=== PATIENT | male | born 1940 | race Caucasian/White ===

== ENCOUNTER 2017-03-17 03:25 | Emergency (ER) | payer MEDICARE, OTHER ==
--- NOTE | 2017-03-17 03:49 | EDM.PDOC ---
ED HPI GENERAL MEDICAL PROBLEM - General Chief Complaint: Abdominal Pain Stated Complaint: STOMACH PAIN Time Seen by Provider: 03/17/17 03:42 Source of Information: Reports: Patient History Limitations: Reports: No Limitations - History of Present Illness INITIAL COMMENTS - FREE TEXT/NARRATIVE: This is a 76-year-old male. 1:15 AM this morning he awoke to go to the bathroom. After he had urinated he got back into bed but shortly he started having severe pain in the right flank and lower quadrant. The pain did not seem to ease up and so they decided to come to [facility]. About [facility] into town he felt very nauseated but did not vomit. By the time they arrived to the ER the pain had resolved completely. He denies any fever or chills he denies any history of kidney stones. He has had no abnormal bowel movements. He denies any blood in his urine this morning that he could see. He still has his appendix. No recent illnesses. Right Lower Abdominal Pain Score (Numeric/FACES): 0 - Related Data Allergies Allergy/AdvReac Type Severity Reaction Status Date / Time Penicillins Allergy Anaphylactic Verified 03/17/17 03:33 Shock Home Meds: Home Meds Acetic Acid/Hydrocortisone [Hydrocortison-Acetic Acid Soln] 3 - 5 drop OT DAILY PRN 03/07/17 [History] Aspirin [Halfprin] 81 mg PO QAM 03/07/17 [History] Insulin Detemir [Levemir Flextouch] 10 unit SQ BEDTIME 03/07/17 [History] Insulin Detemir [Levemir Flextouch] 12 unit SQ QAM 03/07/17 [History] Isosorbide Mononitrate [Imdur] 60 mg PO BID 03/07/17 [History] Multivitamin with Minerals [Multivitamins with Minerals] 1 tab PO DAILY [History] Nitroglycerin [Nitrostat] 0.4 mg SL Q5M PRN 03/07/17 [History] Omeprazole 20 mg PO DAILY 03/07/17 [History] Psyllium Husk (With Sugar) [Metamucil Powder] 2 tbsp PO QPM 03/07/17 [History] Simvastatin [Zocor] 20 mg PO BEDTIME 03/07/17 [History] amLODIPine [Norvasc] 5 mg PO DAILY 03/07/17 [History] glipiZIDE [Glipizide Xl] 10 mg PO BID 03/07/17 [History] metFORMIN [Glucophage] 500 mg PO BIDMEALS 03/07/17 [History] ED ROS GENERAL - Review of Systems Review Of Systems: See Below Constitutional: Denies: Fever, Chills HEENT: Reports: No Symptoms Respiratory: Reports: No Symptoms Cardiovascular: Reports: No Symptoms Endocrine: Reports: High Glucose GI/Abdominal: Reports: Abdominal Pain, Nausea. Denies: Diarrhea, Vomiting : Reports: Flank Pain. Denies: Dysuria Musculoskeletal: Reports: Muscle Stiffness Skin: Reports: No Symptoms Neurological: Reports: No Symptoms Psychiatric: Reports: No Symptoms Hematologic/Lymphatic: Reports: No Symptoms ED EXAM, GI/ABD - Physical Exam Exam: See Below Exam Limited By: No Limitations General Appearance: Alert, WD/WN, No Apparent Distress Eyes: Bilateral: Normal Appearance Ears: Normal External Exam Nose: Normal Inspection Throat/Mouth: Normal Inspection, Normal Lips, Normal Voice Head: Normocephalic Neck: Supple Respiratory/Chest: No Respiratory Distress, Lungs Clear, Normal Breath Sounds Cardiovascular: Regular Rate, Rhythm, No Murmur GI/Abdominal Exam: Soft, Other (There is no tenderness on palpation of his upper abdomen, the right flank and right lower quadrant is very soft and nontender presently, there is no tenderness in the left lower quadrant. Bowel sounds are present but decreased) Back Exam: Decreased Range of Motion Extremities: Normal Inspection Neurological: Alert, Oriented Psychiatric: Normal Affect, Normal Mood Skin Exam: Warm, Dry Course - Vital Signs Last Recorded V/S: Last Vital Signs Temp 97.2 F 03/17/17 03:34 Pulse 65 03/17/17 03:34 Resp 18 03/17/17 03:34 BP 154/67 H 03/17/17 03:34 Pulse Ox 99 03/17/17 03:34 - Orders/Labs/Meds Labs: Laboratory Tests 03/17/17 03/17/17 03/17/17 Range/Units 03:50 04:15 04:15 WBC 5.07 (4.23-9.07) K/mm3 RBC 2.98 L (4.63-6.08) M/mm3 Hgb 10.0 L (13.7-17.5) gm/L Hct 29.7 L (40.1-51.0) % MCV 99.7 H (79.0-92.2) fl MCH 33.6 H (25.7-32.2) pg MCHC 33.7 (32.2-35.5) g/dl RDW Std Deviation 62.7 H (35.1-43.9) fL Plt Count 233 (163-337) K/mm3 MPV 9.4 (9.4-12.3) fl Neut % (Auto) 65.6 (34.0-67.9) % Lymph % (Auto) 24.9 (21.8-53.1) % [place] % (Auto) 5.1 L (5.3-12.2) % Eos % (Auto) 3.2 (0.8-7.0) Baso % (Auto) 1.0 (0.1-1.2) % Neut # (Auto) 3.33 (1.78-5.38) K/mm3 Lymph # (Auto) 1.26 L (1.32-3.57) K/mm3 [place] # (Auto) 0.26 L (0.30-0.82) K/mm3 Eos # (Auto) 0.16 (0.04-0.54) K/mm3 Baso # (Auto) 0.05 (0.01-0.08) K/mm3 Sodium 139 (136-145) mEq/L Potassium 4.7 (3.5-5.1) mEq/L Chloride 106 (98-107) mEq/L Carbon Dioxide 21 (21-32) mEq/L Anion Gap 16.7 H (5-15) BUN 55 H (7-18) mg/dL Creatinine 2.2 H (0.7-1.3) mg/dL Est Cr Clr Drug Dosing 28.57 mL/min Estimated GFR (MDRD) 29 (>60) mL/min BUN/Creatinine Ratio 25.0 H (14-18) Glucose 187 H (83-115) mg/dL Calcium 9.0 (8.5-10.1) mg/dL Total Bilirubin 0.3 (0.2-1.0) mg/dL AST 18 (15-37) U/L ALT 26 (16-63) U/L Alkaline Phosphatase 72 (46-116) U/L Total Protein 8.3 H (6.4-8.2) g/dl Albumin 3.5 (3.4-5.0) g/dl Globulin 4.8 gm/dL Albumin/Globulin Ratio 0.7 L (1-2) Urine Color Yellow (Yellow) Urine Appearance Clear (Clear) Urine pH 6.0 (5.0-8.0) Ur Specific [place] 1.025 (1.005-1.030) Urine Protein 3+ H (Negative) Urine Glucose (UA) Negative (Negative) Urine Ketones Negative (Negative) Urine Occult Blood 2+ H (Negative) Urine Nitrite Negative (Negative) Urine Bilirubin Negative (Negative) Urine Urobilinogen 0.2 (0.2-1.0) Ur Leukocyte Esterase Negative (Negative) Urine RBC 5-10 H (0-5) /hpf Urine WBC 0-5 (0-5) /hpf Ur Epithelial Cells 0-5 (0-5) /hpf Urine Bacteria Rare (FEW) /hpf Hyaline Casts 0-5 (0-5) /lpf Urine Mucus Not seen (FEW) /hpf - Re-Assessments/Exams Free Text/Narrative Re-Assessment/Exam: 03/17/17 05:50 Patient has been completely pain-free since he got here. I spoke to him regarding his urinalysis showing some slight blood in it could be a kidney stone that he experienced. I explained to him that is the stone goes from the kidney down to the bladder and the pain itself wraps around and goes into the testicles eventually before the stone gets into the bladder. I offered to do a CAT scan of his abdomen looking for a stone but since he's been pain-free he doesn't want the CAT scan and wants to see how is going to develop. Departure - Departure Time of Disposition: 05:51 Disposition: Home, Self-Care 01 Condition: Good Clinical Impression: Acute right flank pain, Nausea, Renal insufficiency, Insulin dependent diabetes mellitus Anemia in chronic kidney disease Qualifiers: Chronic kidney disease stage: unspecified stage Qualified Code(s): N18.9 - Chronic kidney disease, unspecified; D63.1 - Anemia in chronic kidney disease; D63.1 - Anemia in chronic kidney disease - Discharge Information Referrals: PCP,None [Primary Care Provider] - Forms: ED Department Discharge Additional Instructions: Drink lots of fluids today, if there's marked worsening of your symptoms or pain with nausea and vomiting return to the ER for CAT scan of your abdomen looking for a kidney stone, otherwise follow-up with your family doctor this week for recheck and further evaluation if desired
[2017-03-17 06:10] VITALS: BP 122/68
== END 2017-03-17 06:10 | disposition home or self-care (01) ==
LOC: JD.ED 03:25
DX: R10.31 Right lower quadrant pain (principal); N18.9 Chronic kidney disease, unspecified; D63.1 Anemia in chronic kidney disease; E11.22 Type 2 diabetes mellitus with diabetic chronic kidney disease; Z79.899 Other long term (current) drug therapy; Z88.0 Allergy status to penicillin; Z79.4 Long term (current) use of insulin
CPT/HCPCS: 36415; 80053; 81001; 85025; 99283; 99284

== ENCOUNTER 2017-05-31 03:53 | Emergency (ER) | payer MEDICARE, OTHER ==
[2017-05-31 04:03] VITALS: BP 156/71
[2017-05-31] MEDS ORDERED: Ondansetron 4 MG/2 ML SDV IVPUSH ONE (04:16)
[2017-05-31] MEDS ORDERED: Sodium Chloride 0.9% 10 ML Syringe FLUSH PRN (04:16)
[2017-05-31] MEDS ORDERED: HYDROmorphone 0.5 MG/0.5 ML Syringe IVPUSH ONE ×2 (04:16→05:45)
--- NOTE | 2017-05-31 04:26 | EDM.PDOC ---
ED HPI GENERAL MEDICAL PROBLEM - General Chief Complaint: Genitourinary Problem Stated Complaint: POSS KIDNEY STONE Time Seen by Provider: 05/31/17 04:11 Source of Information: Reports: Patient, RN Notes Reviewed - History of Present Illness INITIAL COMMENTS - FREE TEXT/NARRATIVE: Patient is a 77-year-old male comes in with left flank pain. He had sudden onset of this about 2 hours ago awakening him from his sleep. The pain started in his left back area and has been radiating around to the left flank and clear down to the left groin. This is sharp and shooting. He states he had similar discomfort with the prior kidney stone. He felt completely fine, totally pain- free last evening. No voiding symptomatology. Some very slight nausea, no vomiting, no fever or chills. Left Lower Abdomen Pain Score (Numeric/FACES): 8 - Related Data Allergies Allergy/AdvReac Type Severity Reaction Status Date / Time Penicillins Allergy Anaphylactic Verified 05/31/17 04:03 Shock Home Meds: Home Meds Acetic Acid/Hydrocortisone [Hydrocortison-Acetic Acid Soln] 3 - 5 drop OT DAILY PRN 03/07/17 [History] Aspirin [Halfprin] 81 mg PO QAM 03/07/17 [History] Insulin Detemir [Levemir Flextouch] 10 unit SQ BEDTIME 03/07/17 [History] Insulin Detemir [Levemir Flextouch] 12 unit SQ QAM 03/07/17 [History] Isosorbide Mononitrate [Imdur] 60 mg PO BID 03/07/17 [History] Multivitamin with Minerals [Multivitamins with Minerals] 1 tab PO DAILY [History] Nitroglycerin [Nitrostat] 0.4 mg SL Q5M PRN 03/07/17 [History] Omeprazole 20 mg PO DAILY 03/07/17 [History] Psyllium Husk (With Sugar) [Metamucil Powder] 2 tbsp PO QPM 03/07/17 [History] Simvastatin [Zocor] 20 mg PO BEDTIME 03/07/17 [History] glipiZIDE [Glipizide Xl] 10 mg PO BID 03/07/17 [History] metFORMIN [Glucophage] 500 mg PO BIDMEALS 03/07/17 [History] Hydrocodone/Acetaminophen [Reese 5-325 Tablet] 1 each PO Q6HR PRN #10 tablet [Rx] Past Medical History HEENT History: Reports: Impaired Vision Other HEENT History: wears glasses Cardiovascular History: Reports: Bypass, High Cholesterol, Hypertension, Stents Genitourinary History: Reports: Renal Disease Musculoskeletal History: Reports: Other (See Below) Other Musculoskeletal History: fractured knee cap and shoulder Endocrine/Metabolic History: Reports: Diabetes, Type II - Past Surgical History HEENT Surgical History: Reports: Cataract Surgery Cardiovascular Surgical History: Reports: Coronary Artery Bypass Social & Family History - Family History Family Medical History: Noncontributory - Tobacco Use Smoking Status *Q: Former Smoker Used Tobacco, but Quit: Yes Month Tobacco Last Used: unk - Caffeine Use Caffeine Use: Reports: Coffee - Recreational Drug Use Recreational Drug Use: No ED ROS GENERAL - Review of Systems Review Of Systems: See Below Constitutional: Denies: Fever, Chills, Diaphoresis HEENT: Reports: No Symptoms Respiratory: Denies: Shortness of Breath Cardiovascular: Denies: Chest Pain GI/Abdominal: Reports: Abdominal Pain (Left flank and left groin discomfort only ), Nausea. Denies: Diarrhea, Vomiting : Reports: No Symptoms Musculoskeletal: Reports: Back Pain (Left-sided) Skin: Reports: No Symptoms Neurological: Reports: No Symptoms ED EXAM, RENAL/ - Physical Exam Exam: See Below General Appearance: Alert, Moderate Distress Throat/Mouth: Normal Inspection, Normal Oropharynx Head: Atraumatic. No: Facial Swelling Neck: Supple, Full Range of Motion Respiratory/Chest: No Respiratory Distress, Lungs Clear, Normal Breath Sounds Cardiovascular: Regular Rate, Rhythm GI/Abdominal: Soft, Non-Tender. No: Guarding Back Exam: CVA Tenderness (L) (Mild) Extremities: Normal Inspection, Normal Range of Motion Skin Exam: Warm, Dry, Normal Color Course - Vital Signs Last Recorded V/S: Last Vital Signs Temp 96.9 F 05/31/17 03:59 Pulse 63 05/31/17 03:59 Resp 16 05/31/17 03:59 BP 156/71 H 05/31/17 03:59 Pulse Ox 99 05/31/17 03:59 - Orders/Labs/Meds Orders: Active Orders 24 hr Category Date Time Status Peripheral IV Care [RC] . DIRECTED Care 05/31/17 04:17 Active Sodium Chloride 0.9% [Normal Saline] 1,000 ml Med 05/31/17 04:30 Active IV ASDIRECTED Sodium Chloride 0.9% [Saline Flush] Med 05/31/17 04:16 Active 10 ml FLUSH ASDIRECTED PRN Peripheral IV Insertion Adult [OM.PC] Stat Oth 05/31/17 04:16 Ordered Medication Orders Sodium Chloride (Normal Saline) 1,000 mls @ 150 mls/hr IV ASDIRECTED VICKI Last Admin: 05/31/17 04:51 Dose: 150 mls/hr Sodium Chloride (Saline Flush) 10 ml FLUSH ASDIRECTED PRN PRN Reason: Keep Vein Open Last Admin: 05/31/17 04:58 Dose: 10 ml Labs: Laboratory Tests 05/31/17 Range/Units 04:29 Urine Color Yellow (Yellow) Urine Appearance Clear (Clear) Urine pH 6.0 (5.0-8.0) Ur Specific [place] 1.025 (1.005-1.030) Urine Protein 3+ H (Negative) Urine Glucose (UA) Negative (Negative) Urine Ketones Negative (Negative) Urine Occult Blood 2+ H (Negative) Urine Nitrite Negative (Negative) Urine Bilirubin Negative (Negative) Urine Urobilinogen 0.2 (0.2-1.0) Ur Leukocyte Esterase Negative (Negative) Urine RBC 5-10 H (0-5) /hpf Urine WBC 0-5 (0-5) /hpf Ur Epithelial Cells 0-5 (0-5) /hpf Urine Bacteria Rare (FEW) /hpf Urine Mucus Few (FEW) /hpf Meds: Medications Generic Name Dose Route Start Last Admin Trade Name Freq PRN Reason Stop Dose Admin Sodium Chloride 1,000 mls @ 150 mls/hr 05/31/17 04:30 05/31/17 04:51 Normal Saline IV 150 mls/hr ASDIRECTED VICKI Administration Sodium Chloride 10 ml 05/31/17 04:16 05/31/17 04:58 Saline Flush FLUSH 10 ml ASDIRECTED PRN Administration Keep Vein Open Discontinued Medications Generic Name Dose Route Start Last Admin Trade Name Freq PRN Reason Stop Dose Admin Hydromorphone HCl 0.5 mg 05/31/17 04:16 05/31/17 04:51 Dilaudid IVPUSH 05/31/17 04:17 0.5 mg ONETIME ONE Administration Hydromorphone HCl 0.5 mg 05/31/17 05:45 05/31/17 06:03 Dilaudid IVPUSH 05/31/17 05:46 0.5 mg ONETIME ONE Administration Ondansetron HCl 4 mg 05/31/17 04:16 05/31/17 04:57 Zofran IVPUSH 05/31/17 04:17 4 mg ONETIME ONE Administration - Re-Assessments/Exams Free Text/Narrative Re-Assessment/Exam: 05/31/17 06:52 . Patient initially had good relief of in with 0.5 mg Dilaudid IV. The pain did start coming back requiring a second 0.[address] study does show mild left hydronephrosis but no stone visualized. Reports suggest that he has likely passed a recent stone with consideration that he may have a non-radiopaque stone that does not show on current study. His pain at this time is completely gone. Discharge instructions as documented. Departure - Departure Time of Disposition: 06:54 Disposition: Home, Self-Care 01 Condition: Fair Clinical Impression: Kidney stone, Acute left flank pain - Discharge Information Prescriptions: Hydrocodone/Acetaminophen [Reese 5-325 Tablet] 1 each PO Q6HR PRN #10 tablet PRN Reason: Pain Referrals: PCP,Unknown [Primary Care Provider] - Forms: ED Department Discharge Additional Instructions: Drink plenty of water to maintain hydration, Tylenol if needed for any further mild discomfort or hydrocodone if needed for more severe pain. It is not expected that you should have much if any further severe discomfort. If symptoms not resolving over the next 1-2 days follow-up either at [facility] or [facility] for further evaluation, treatment as needed. - My Orders Last 24 Hours: My Active Orders 05/31/17 04:16 Sodium Chloride 0.9% [Saline Flush] 10 ml FLUSH ASDIRECTED PRN Peripheral IV Insertion Adult [OM.PC] Stat 05/31/17 04:17 Peripheral IV Care [RC] . DIRECTED 05/31/17 04:30 Sodium Chloride 0.9% [Normal Saline] 1,000 ml IV ASDIRECTED - Assessment/Plan Last 24 Hours: My Active Orders 05/31/17 04:16 Sodium Chloride 0.9% [Saline Flush] 10 ml FLUSH ASDIRECTED PRN Peripheral IV Insertion Adult [OM.PC] Stat 05/31/17 04:17 Peripheral IV Care [RC] . DIRECTED 05/31/17 04:30 Sodium Chloride 0.9% [Normal Saline] 1,000 ml IV ASDIRECTED
[2017-05-31] MEDS ORDERED: Sodium Chloride 0.9% 1,000 ML IV SCH (04:30)
--- NOTE | 2017-05-31 06:39 | CT ---
CT abdomen and pelvis Technique: Multiple axial sections were obtained from above the dome of the diaphragm inferiorly through the pubic symphysis. Intravenous and oral contrast not utilized. Study has been performed as a ureteral stone protocol. Comparison: No previous study. Findings: Small portion of the visualized lung bases show nothing acute. Several low density lesions are identified within the liver measuring less than 1 cm. These are felt to represent minimal cysts. Coronary artery stents are present. Small hiatal hernia is noted. Spleen appears within normal limits. Adrenal glands show no nodule. Pancreas is within normal limits. Low-density cysts are identified within both kidneys. Largest cyst located within the left kidney measuring 3.0 cm. Left renal pelvis is mildly prominent in size. No ureteral dilatation or ureteral stone is seen. Aorta shows atherosclerotic change. Proximal aortic aneurysm is seen with AP dimension of 3.3 cm. Distal aorta is also mildly aneurysmal at 3.0 cm. Atherosclerotic change continues into the iliac vessels. Appendix is seen which is normal in size. No pelvic mass or adenopathy is seen. Minimal diverticulosis noted within the sigmoid colon. Fat containing right inguinal hernia is noted. Mild increased stool noted within the colon. Skin thickening seen within the anterior abdominal wall most likely due to previous injections. No free fluid or inflammatory change is seen. Bone window settings were reviewed which show mild degenerative change within the spine. Impression: 1. 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 2. Slightly prominent left renal pelvis with normal sized ureters with no ureteral stone being seen. 3. Other incidental findings as noted above. Diagnostic code #3 I agree with preliminary report issued by [facility] ([facility] report finalized on 05/31/17, 6:51 AM Central Time)
== END 2017-05-31 07:20 | disposition home or self-care (01) ==
LOC: JD.ED 03:53
DX: N13.2 Hydronephrosis with renal and ureteral calculous obstruction (principal); I10 Essential (primary) hypertension; E78.00 Pure hypercholesterolemia, unspecified; E11.9 Type 2 diabetes mellitus without complications; Z95.1 Presence of aortocoronary bypass graft; Z87.891 Personal history of nicotine dependence; Z79.4 Long term (current) use of insulin; Z79.82 Long term (current) use of aspirin; Z88.0 Allergy status to penicillin; Z79.899 Other long term (current) drug therapy
CPT/HCPCS: 74176; 81001; 96361; 96374; 96375; 96376; 99284; J1170; J2405; J7040; J7050

== ENCOUNTER 2019-03-23 04:17 | Inpatient (IN) | payer MEDICARE, OTHER ==
--- NOTE | 2019-03-23 04:31 | EDM.PDOC ---
<Ozzie Acharya - Last Filed: 03/23/19 07:01> ED HPI GENERAL MEDICAL PROBLEM - General Chief Complaint: Abdominal Pain Stated Complaint: RIGHT FLANK PAIN Time Seen by Provider: 03/23/19 04:29 - History of Present Illness INITIAL COMMENTS - FREE TEXT/NARRATIVE: 79-year-old male presents emergency room with right abdominal discomfort and pain. This started around midnight, and has progressively gotten worse. The patient' s had some nausea no vomiting no change in bowel habits. He's not aware of any fevers or chills. This reminds him most when he said kidney stones in the past. The patient has had a history of kidney stones he's had for 5 the last 5 years and he also has stage IV renal failure. Patient is not any chest pain chest pressure breathing difficulties or shortness of breath. He has not noticed a change in bowel habits and he has not had significant difficulty voiding. Right Flank Pain Score (Numeric/FACES): 7 - Related Data Allergies Allergy/AdvReac Type Severity Reaction Status Date / Time Penicillins Allergy Anaphylactic Verified 03/23/19 04:28 Shock Home Meds: Home Meds Aspirin [Halfprin] 81 mg PO QAM 03/07/17 [History] Hydrocortisone/Acetic Acid [Hydrocortison-Acetic Acid Soln] 3 - 5 drop OT DAILY PRN 03/07/17 [History] Insulin Detemir [Levemir Flextouch] 10 unit SQ BEDTIME 03/07/17 [History] Insulin Detemir [Levemir Flextouch] 12 unit SQ QAM 03/07/17 [History] Isosorbide Mononitrate [Imdur] 60 mg PO BID 03/07/17 [History] Multivitamin with Minerals [Multivitamins with Minerals] 1 tab PO DAILY [History] Nitroglycerin [Nitrostat] 0.4 mg SL Q5M PRN 03/07/17 [History] Psyllium Husk (With Sugar) [Metamucil Powder] 2 tbsp PO QPM 03/07/17 [History] Simvastatin [Zocor] 20 mg PO BEDTIME 03/07/17 [History] glipiZIDE [Glipizide Xl] 10 mg PO BID 03/07/17 [History] Darbepoetin Sukhwinder in Polysorbat [Aranesp] 500 mcg SUBCUT ASDIRECTED 03/05/19 [ History] Ferrous Sulfate 325 mg PO DAILY 03/05/19 [History] Furosemide [Lasix] 40 mg PO ASDIRECTED PRN 03/05/19 [History] Metoprolol Tartrate 25 mg PO BID 03/05/19 [History] Sodium Bicarbonate 650 mg PO TID 03/05/19 [History] amLODIPine Besylate [Norvasc] 10 mg PO DAILY 03/05/19 [History] Past Medical History HEENT History: Reports: Impaired Vision Other HEENT History: wears glasses Cardiovascular History: Reports: Bypass, High Cholesterol, Hypertension, Stents Genitourinary History: Reports: Renal Disease Musculoskeletal History: Reports: Other (See Below) Other Musculoskeletal History: fractured knee cap and shoulder Endocrine/Metabolic History: Reports: Diabetes, Type II - Past Surgical History HEENT Surgical History: Reports: Cataract Surgery Cardiovascular Surgical History: Reports: Coronary Artery Bypass Social & Family History - Family History Family Medical History: Noncontributory - Caffeine Use Caffeine Use: Reports: Coffee ED ROS GENERAL - Review of Systems Review Of Systems: See Below Constitutional: Reports: No Symptoms HEENT: Reports: No Symptoms Respiratory: Reports: No Symptoms Cardiovascular: Reports: No Symptoms Endocrine: Reports: No Symptoms GI/Abdominal: Reports: Abdominal Pain, Nausea. Denies: Constipation, Diarrhea, Vomiting : Reports: No Symptoms Musculoskeletal: Reports: No Symptoms Neurological: Reports: No Symptoms ED EXAM, GI/ABD - Physical Exam Exam: See Below Exam Limited By: No Limitations General Appearance: Alert, No Apparent Distress Head: Atraumatic, Normocephalic Neck: Normal Inspection, Supple, Non-Tender, Full Range of Motion. No: Lymphadenopathy (L), Lymphadenopathy (R) Respiratory/Chest: No Respiratory Distress, Lungs Clear Cardiovascular: Normal Peripheral Pulses, Regular Rate, Rhythm, No Edema GI/Abdominal Exam: Normal Bowel Sounds, Soft, Other (He has some tenderness mostly the right upper quadrant less so moving inferiorly no rigidity rebound or guarding noted no pain radiating into the groin.) Neurological: Alert, Oriented, Normal Cognition Skin Exam: Warm, Dry, Intact Lymphatic: No Adenopathy Course - Vital Signs Last Recorded V/S: Last Vital Signs Temp 37.9 C 03/23/19 09:08 Pulse 80 03/23/19 09:08 Resp 16 03/23/19 09:08 BP 155/72 H 03/23/19 09:08 Pulse Ox 92 L 03/23/19 09:08 - Orders/Labs/Meds Orders: Active Orders 24 hr Category Date Time Status RT Arterial Blood Gases, ABG [RC] ASDIRECTED Care 03/23/19 09:08 Active Abdomen Pelvis wo Cont [CT] Stat Exams 03/23/19 04:54 Completed CULTURE URINE [RM] Routine Lab 03/23/19 07:21 Ordered KETONES,BLOOD [CHEM] Stat Lab 03/23/19 09:11 Ordered PROCALCITONIN [REF] Stat Lab 03/23/19 09:11 Ordered Sodium Chloride 0.9% [Normal Saline] 1,000 ml Med 03/23/19 08:30 Active IV ASDIRECTED cefTRIAXone [Rocephin] 2 gm Med 03/23/19 07:30 Active Sodium Chloride 0.9% [Normal Saline] 100 ml IV Q24H Medication Orders Ceftriaxone Sodium 2 gm/ (Sodium Chloride) 100 mls @ 200 mls/hr IV Q24H VICKI Last Admin: 03/23/19 07:55 Dose: 200 mls/hr Sodium Chloride (Normal Saline) 1,000 mls @ 125 mls/hr IV ASDIRECTED VICKI Last Admin: 03/23/19 09:03 Dose: 125 mls/hr Labs: Laboratory Tests 03/23/19 03/23/19 03/23/19 Range/Units 04:45 05:05 05:05 WBC 5.92 (4.23-9.07) K/mm3 RBC 2.24 L (4.63-6.08) M/mm3 Hgb 7.6 L D (13.7-17.5) gm/dl Hct 23.3 L (40.1-51.0) % MCV 104.0 H D (79.0-92.2) fl MCH 33.9 H (25.7-32.2) pg MCHC 32.6 (32.2-35.5) g/dl RDW Std Deviation 68.3 H (35.1-43.9) fL Plt Count 372 H D (163-337) K/mm3 MPV 8.7 L (9.4-12.3) fl Neutrophils % (Manual) 81 H (40-60) % Band Neutrophils % 0 (0-10) % Lymphocytes % (Manual) 12 L (20-40) % Atypical Lymphs % 0 % Monocytes % (Manual) 6 (2-10) % Eosinophils % (Manual) 1 (0.8-7.0) % Basophils % (Manual) 0 L (0.2-1.2) Platelet Estimate Adequate Plt Morphology Comment Normal Poikilocytosis 2+ moderate Macrocytosis 1+ slight RBC Morph Comment Not Reportable Sodium 136 (136-145) mEq/L Potassium 5.3 H (3.5-5.1) mEq/L Chloride 106 (98-107) mEq/L Carbon Dioxide 16 L (21-32) mEq/L Anion Gap 19.3 H (5-15) BUN 71 H (7-18) mg/dL Creatinine 3.8 H D (0.7-1.3) mg/dL Est Cr Clr Drug Dosing 15.74 mL/min Estimated GFR (MDRD) 15 (>60) mL/min BUN/Creatinine Ratio 18.7 H (14-18) Glucose 231 H (83-115) mg/dL POC Glucose (83-110) mg/dL Lactic Acid (0.4-2.0) mmol/L Uric Acid (3.5-7.2) mg/dL Calcium 9.1 (8.5-10.1) mg/dL Magnesium (1.8-2.4) mg/dl Total Bilirubin 0.4 (0.2-1.0) mg/dL AST 16 (15-37) U/L ALT 29 (16-63) U/L Alkaline Phosphatase 104 (46-116) U/L C-Reactive Protein (<1.0) mg/dL NT-Pro-B Natriuret Pep (0-450) pg/mL Total Protein 8.2 (6.4-8.2) g/dl Albumin 3.0 L (3.4-5.0) g/dl Globulin 5.2 gm/dL Albumin/Globulin Ratio 0.6 L (1-2) Lipase (73-393) U/L Urine Color Yellow (Yellow) Urine Appearance Clear (Clear) Urine pH 6.0 (5.0-8.0) Ur Specific Guy 1.025 (1.005-1.030) Urine Protein 3+ H (Negative) Urine Glucose (UA) Negative (Negative) Urine Ketones Negative (Negative) Urine Occult Blood 2+ H (Negative) Urine Nitrite Negative (Negative) Urine Bilirubin Negative (Negative) Urine Urobilinogen 0.2 (0.2-1.0) Ur Leukocyte Esterase Negative (Negative) Urine RBC 0-5 (0-5) /hpf Urine WBC 5-10 H (0-5) /hpf Ur Epithelial Cells 0-5 (0-5) /hpf Urine Bacteria Few (FEW) /hpf Urine Mucus Not seen (FEW) /hpf 03/23/19 03/23/19 03/23/19 Range/Units 05:05 05:05 05:05 WBC (4.23-9.07) K/mm3 RBC (4.63-6.08) M/mm3 Hgb (13.7-17.5) gm/dl Hct (40.1-51.0) % MCV (79.0-92.2) fl MCH (25.7-32.2) pg MCHC (32.2-35.5) g/dl RDW Std Deviation (35.1-43.9) fL Plt Count (163-337) K/mm3 MPV (9.4-12.3) fl Neutrophils % (Manual) (40-60) % Band Neutrophils % (0-10) % Lymphocytes % (Manual) (20-40) % Atypical Lymphs % % Monocytes % (Manual) (2-10) % Eosinophils % (Manual) (0.8-7.0) % Basophils % (Manual) (0.2-1.2) Platelet Estimate Plt Morphology Comment Poikilocytosis Macrocytosis RBC Morph Comment Sodium (136-145) mEq/L Potassium (3.5-5.1) mEq/L Chloride (98-107) mEq/L Carbon Dioxide (21-32) mEq/L Anion Gap (5-15) BUN (7-18) mg/dL Creatinine (0.7-1.3) mg/dL Est Cr Clr Drug Dosing mL/min Estimated GFR (MDRD) (>60) mL/min BUN/Creatinine Ratio (14-18) Glucose (83-115) mg/dL POC Glucose (83-110) mg/dL Lactic Acid (0.4-2.0) mmol/L Uric Acid 7.1 (3.5-7.2) mg/dL Calcium (8.5-10.1) mg/dL Magnesium 2.0 (1.8-2.4) mg/dl Total Bilirubin (0.2-1.0) mg/dL AST (15-37) U/L ALT (16-63) U/L Alkaline Phosphatase (46-116) U/L C-Reactive Protein 2.5 H* (<1.0) mg/dL NT-Pro-B Natriuret Pep 4027 H (0-450) pg/mL Total Protein (6.4-8.2) g/dl Albumin (3.4-5.0) g/dl Globulin gm/dL Albumin/Globulin Ratio (1-2) Lipase (73-393) U/L Urine Color (Yellow) Urine Appearance (Clear) Urine pH (5.0-8.0) Ur Specific Guy (1.005-1.030) Urine Protein (Negative) Urine Glucose (UA) (Negative) Urine Ketones (Negative) Urine Occult Blood (Negative) Urine Nitrite (Negative) Urine Bilirubin (Negative) Urine Urobilinogen (0.2-1.0) Ur Leukocyte Esterase (Negative) Urine RBC (0-5) /hpf Urine WBC (0-5) /hpf Ur Epithelial Cells (0-5) /hpf Urine Bacteria (FEW) /hpf Urine Mucus (FEW) /hpf 03/23/19 03/23/19 03/23/19 Range/Units 05:05 07:45 09:03 WBC (4.23-9.07) K/mm3 RBC (4.63-6.08) M/mm3 Hgb (13.7-17.5) gm/dl Hct (40.1-51.0) % MCV (79.0-92.2) fl MCH (25.7-32.2) pg MCHC (32.2-35.5) g/dl RDW Std Deviation (35.1-43.9) fL Plt Count (163-337) K/mm3 MPV (9.4-12.3) fl Neutrophils % (Manual) (40-60) % Band Neutrophils % (0-10) % Lymphocytes % (Manual) (20-40) % Atypical Lymphs % % Monocytes % (Manual) (2-10) % Eosinophils % (Manual) (0.8-7.0) % Basophils % (Manual) (0.2-1.2) Platelet Estimate Plt Morphology Comment Poikilocytosis Macrocytosis RBC Morph Comment Sodium (136-145) mEq/L Potassium (3.5-5.1) mEq/L Chloride (98-107) mEq/L Carbon Dioxide (21-32) mEq/L Anion Gap (5-15) BUN (7-18) mg/dL Creatinine (0.7-1.3) mg/dL Est Cr Clr Drug Dosing mL/min Estimated GFR (MDRD) (>60) mL/min BUN/Creatinine Ratio (14-18) Glucose (83-115) mg/dL POC Glucose 217 H (83-110) mg/dL Lactic Acid 0.8 (0.4-2.0) mmol/L Uric Acid (3.5-7.2) mg/dL Calcium (8.5-10.1) mg/dL Magnesium (1.8-2.4) mg/dl Total Bilirubin (0.2-1.0) mg/dL AST (15-37) U/L ALT (16-63) U/L Alkaline Phosphatase (46-116) U/L C-Reactive Protein (<1.0) mg/dL NT-Pro-B Natriuret Pep (0-450) pg/mL Total Protein (6.4-8.2) g/dl Albumin (3.4-5.0) g/dl Globulin gm/dL Albumin/Globulin Ratio (1-2) Lipase 234 (73-393) U/L Urine Color (Yellow) Urine Appearance (Clear) Urine pH (5.0-8.0) Ur Specific Guy (1.005-1.030) Urine Protein (Negative) Urine Glucose (UA) (Negative) Urine Ketones (Negative) Urine Occult Blood (Negative) Urine Nitrite (Negative) Urine Bilirubin (Negative) Urine Urobilinogen (0.2-1.0) Ur Leukocyte Esterase (Negative) Urine RBC (0-5) /hpf Urine WBC (0-5) /hpf Ur Epithelial Cells (0-5) /hpf Urine Bacteria (FEW) /hpf Urine Mucus (FEW) /hpf Meds: Medications Generic Name Dose Route Start Last Admin Trade Name Freq PRN Reason Stop Dose Admin Ceftriaxone Sodium 2 gm/ 100 mls @ 200 mls/hr 03/23/19 07:30 03/23/19 07:55 Sodium Chloride IV 200 mls/hr Q24H VICKI Administration Sodium Chloride 1,000 mls @ 125 mls/hr 03/23/19 08:30 03/23/19 09:03 Normal Saline IV 125 mls/hr ASDIRECTED VICKI Administration Discontinued Medications Generic Name Dose Route Start Last Admin Trade Name Kuldip PRN Reason Stop Dose Admin Acetaminophen 650 mg 03/23/19 08:35 03/23/19 09:07 Tylenol PO 03/23/19 08:36 650 mg ONETIME ONE Administration Fentanyl 50 mcg 03/23/19 05:21 03/23/19 05:24 Sublimaze IVPUSH 03/23/19 05:22 50 mcg ONETIME ONE Administration Furosemide 40 mg 03/23/19 08:40 03/23/19 09:05 Lasix IVPUSH 03/23/19 08:41 40 mg NOW ONE Administration Hydromorphone HCl 0.5 mg 03/23/19 07:58 03/23/19 08:09 Dilaudid IVPUSH 03/23/19 07:59 0.5 mg ONETIME ONE Administration Insulin Glargine 12 unit 03/23/19 08:21 03/23/19 09:04 Lantus SUBCUT 03/23/19 08:22 12 units ONETIME ONE Administration Metoclopramide HCl 7.5 mg 03/23/19 07:58 03/23/19 08:08 Reglan IVPUSH 03/23/19 07:59 7.5 mg ONETIME ONE Administration Ondansetron HCl 4 mg 03/23/19 05:41 03/23/19 05:51 Zofran IVPUSH 03/23/19 05:42 4 mg ONETIME ONE Administration Departure - Departure Disposition: Admitted As Inpatient 64 Clinical Impression: Chronic renal insufficiency, stage V, Nausea and vomiting in adult patient, Acute right flank pain Congestive heart failure Qualifiers: Heart failure type: combined systolic and diastolic Heart failure chronicity: chronic Qualified Code(s): I50.42 - Chronic combined systolic (congestive) and diastolic (congestive) heart failure Type 2 diabetes mellitus Qualifiers: Diabetes mellitus half-way insulin use: with half-way use Diabetes mellitus complication status: with kidney complications Diabetes mellitus complication detail: with chronic kidney disease Chronic kidney disease stage: stage 5, not on chronic dialysis Qualified Code(s): E11.22 - Type 2 diabetes mellitus with diabetic chronic kidney disease; N18.5 - Chronic kidney disease, stage 5; Z79.4 - termite control technician (current) use of insulin Fever Qualifiers: Encounter type: initial encounter Abdominal pain Qualifiers: Abdominal location: right upper quadrant Qualified Code(s): R10.11 - Right upper quadrant pain Anemia in chronic kidney disease Qualifiers: Chronic kidney disease stage: unspecified stage Qualified Code(s): N18.9 - Chronic kidney disease, unspecified - Discharge Information Referrals: PCP,Not In Area [Primary Care Provider] - Forms: ED Department Discharge - My Orders Last 24 Hours: My Active Orders 03/23/19 07:21 CULTURE URINE [RM] Routine 03/23/19 07:30 cefTRIAXone [Rocephin] 2 gm Sodium Chloride 0.9% [Normal Saline] 100 ml IV Q24H 03/23/19 08:30 Sodium Chloride 0.9% [Normal Saline] 1,000 ml IV ASDIRECTED - Assessment/Plan Last 24 Hours: My Active Orders 03/23/19 07:21 CULTURE URINE [RM] Routine 03/23/19 07:30 cefTRIAXone [Rocephin] 2 gm Sodium Chloride 0.9% [Normal Saline] 100 ml IV Q24H 03/23/19 08:30 Sodium Chloride 0.9% [Normal Saline] 1,000 ml IV ASDIRECTED <Murphy Juan - Last Filed: 03/23/19 09:29> ED HPI GENERAL MEDICAL PROBLEM - General Source of Information: Reports: Patient History Limitations: Reports: No Limitations - History of Present Illness Onset: Today Onset Date: 03/23/19 Onset Time: 00:00 Duration: Hour(s): Location: Reports: Back (Right flank) Quality: Reports: Ache Severity: Moderate Improves with: Reports: None Worsens with: Reports: None Context: Denies: Activity Associated Symptoms: Reports: No Other Symptoms, Other (Nausea) Past Medical History Endocrine/Metabolic History: Reports: Diabetes, Type II (Recently metformin was discontinued because he is experiencing too many low hypoglycemic reactions off with sugars of 54-55% in the morning. Sugars usually are in the 70s and 80s.) Course - Radiology Interpretation Free Text/Narrative:: 79-year-old male presents the ED for assessment of acute right flank pain that started about midnight. Associated nausea and vomiting. No fever. - Re-Assessments/Exams Free Text/Narrative Re-Assessment/Exam: 03/23/19 07:18 Manju has been assumed from Dr. Acharya at change of shift .Total white count is 5.92. The manual differential is 81% neutrophils and no bands reported. Hemoglobin is low at 7.6 with hematocrit of 23.3. MCV is elevated 104.0. Platelet count 372,000. Slight shows 2+ poikilocytosis and 1+ macrocytosis. Sodium is 136 with a potassium slightly elevated at 5.3. Throat is 106 with a bicarbonate of 16. Anion gap is 19.3. BUN is 71 with a creatinine is 3.8. Estimated GFR is very low at 15 ice stage V chronic renal insufficiency. BUN/creatinine ratio is elevated 18.7. Glucose elevated to 31. Calcium is 9.1 with a normal liver function bilirubin is 0.4. Alkaline phosphatase is 104. Total protein is 8.2 with a albumin fraction of 3.0. Globulin is 5.2. Urinalysis has 3+ proteinuria 2+ occult blood and slight contains 5-10 wbc's per per field. Few bacteria appreciated a urine culture will be ordered patient is obviously very poor renal function. Patient be started on Rocephin 2 g intravenously. On review of the ultrasound performed on this fellow this morning he has a 10 mm irregularly-shaped low-attenuation area in the right lobe of the liver. Hounsfield units consistent with a cyst. There is marked inflammatory changes around the gallbladder. There is gallbladder wall thickness of 5 mm this could represent acute cholecystitis in the appropriate clinical setting. There are inflammatory changes around the duodenum which may be primary or secondary to either cholecystitis or pancreatitis. Inflammatory changes around the head of the pancreas may represent acute pancreatitis or secondary information from duodenum her gallbladder. 14 mm cystic structure in the head of the pancreas appreciated and 19 mm cystic structure in the head of the pancreas as well. Spleen is normal. Adrenals appear to be normal. Kidneys and ureters show 3 cm cyst in the left kidney. 1.7 cm cyst in the left kidney as well. Hydronephrosis of the right collecting system is present. Extrarenal pelvis is dilated 2.5 cm. More distally the ureter tapers but no ureteral calculus is appreciated this may represent passed ureteral calculus. Stomach and bowel appear unremarkable. No evidence of appendicitis no free air no significant fluid collection in the pelvis. The infrarenal abdominal aortic aneurysm is 3.5 x 3.4 cm. Lymph nodes appear unremarkable. Serum lipase will be ordered. 03/23/19 07:58 nurse reports that patient is experiencing increased right upper quadrant abdominal pain and nausea. Will repeat antinauseants 7.5 mg IV and Dilaudid 0.5 mg IV for pain relief. 03/23/19 08:03 gallbladder ultrasound has been completed. Liver shows no discrete abnormalities. Gallbladder wall is slightly thickened but no shadowing gallstones are seen. Appears to be a minimal amount of free fluid next to the gallbladder. No biliary duct dilatation is seen cyst noted within the right upper kidney measuring 1.7 cm. Pancreas is incompletely seen. At this time the pancreas appears to be within normal limits. Inferior vena cava is patent portal vein shows normal hepatopedal flow. 03/23/19 08:19 CRP is 2.5. BNP is 4027. Lipase is 234. Uric acid is 7.1. Upper limits of normal. 03/23/19 08:36 patient is clinically warm to palpation. Will give him 650 mg of Tylenol by mouth. Is no appetite at this time. We'll give him 12 units of Lantus insulin subcutaneously. Tentatively he needs to be admitted to the hospital until blood cultures comes back. It appears to be having a urinary tract infection 03/23/19 08:48 lactic acid has returned at 0.8. Discussed the case with carbonation equipment tender hospitalist Dr. Slater and she will see the patient in the ED with a view to admission to med surgery. Departure - Departure Time of Disposition: 09:24 Condition: Poor - Discharge Information *PRESCRIPTION DRUG MONITORING PROGRAM REVIEWED*: Not Applicable *COPY OF PRESCRIPTION DRUG MONITORING REPORT IN PATIENT ARYAN: Not Applicable - My Orders Last 24 Hours: My Active Orders 03/23/19 07:21 CULTURE URINE [RM] Routine 03/23/19 07:30 cefTRIAXone [Rocephin] 2 gm Sodium Chloride 0.9% [Normal Saline] 100 ml IV Q24H 03/23/19 08:30 Sodium Chloride 0.9% [Normal Saline] 1,000 ml IV ASDIRECTED - Assessment/Plan Last 24 Hours: My Active Orders 03/23/19 07:21 CULTURE URINE [RM] Routine 03/23/19 07:30 cefTRIAXone [Rocephin] 2 gm Sodium Chloride 0.9% [Normal Saline] 100 ml IV Q24H 03/23/19 08:30 Sodium Chloride 0.9% [Normal Saline] 1,000 ml IV ASDIRECTED
[2019-03-23] MEDS ORDERED: fentaNYL 100 MCG/2 ML SDV IVPUSH ONE (05:21)
[2019-03-23] MEDS ORDERED: Ondansetron 4 MG/2 ML SDV IVPUSH ONE (05:41)
[2019-03-23] MEDS ORDERED: cefTRIAXone 2 GM in Sodium Chloride 0.9% 100 ML IV SCH (07:30)
[2019-03-23] MEDS ORDERED: Metoclopramide 10 MG/2 ML SDV IVPUSH ONE (07:58)
[2019-03-23] MEDS ORDERED: HYDROmorphone 0.5 MG/0.5 ML Syringe IVPUSH ONE (07:58)
--- NOTE | 2019-03-23 08:00 | US ---
Limited abdominal ultrasound: Multiple real-time images of the upper right abdomen were obtained. Comparison: Previous CT abdomen and pelvis study of 03/23/19. Liver shows no discrete abnormality. Gallbladder wall is slightly thickened but no shadowing gallstones are seen. There appears to be a minimal amount of fluid next to the gallbladder. No biliary duct dilatation is seen. Cyst is noted within the upper right kidney measuring 1.7 cm. Pancreas is incompletely is seen. At the of the pancreas appears within normal limits. Inferior vena cava is patent. Portal vein shows normal hepatopedal flow. Impression: 1. Gallbladder wall slightly thickened with no shadowing gallstones. Minimal fluid is seen next to the gallbladder. Gallbladder findings are most likely due to inflammatory change from the duodenum and less likely due to acalculous cholecystitis. 2. Incidental renal cyst. 3. No additional abnormality is appreciated. Diagnostic code #3
[2019-03-23] MEDS ORDERED: Insulin Glarg,Human.Rec.Analog 100 UNIT/ML ML SUBCUT ONE (08:21)
[2019-03-23] MEDS ORDERED: Sodium Chloride 0.9% 1,000 ML IV SCH (08:30)
[2019-03-23] MEDS ORDERED: Acetaminophen 325 MG Tab PO ONE (08:35)
[2019-03-23] MEDS ORDERED: Furosemide 40 MG/4 ML VIAL IVPUSH ONE (08:40)
--- NOTE | 2019-03-23 09:24 | CT ---
CT abdomen and pelvis Technique: Multiple axial sections were obtained from above the dome of the diaphragm inferiorly through the pubic symphysis. Intravenous and oral contrast not utilized. Study performed as a ureteral stone protocol. Comparison: Previous CT abdomen and pelvis study of 05/31/17. Findings: Small hiatal hernia is noted. Visualized lung bases shows mild fibrosis with no acute finding. Two cysts are seen within the liver measuring less than 1 cm. Spleen appears within normal limits. Adrenal glands show no nodule. Gallbladder contains no calcified gallstones. There is inflammatory change being seen which appears to be mostly centered around the duodenum. Slight haziness is noted adjacent to the gallbladder. Gallbladder wall may be slightly thickened. No calcified gallstones are seen.. Duodenal wall thickening is seen. Possible duodenal diverticulum is present or possibly large duodenal ulcer. Pancreas shows no discrete abnormality. Small cystic area seen off the inferior pancreas or duodenum measuring about 1.9 cm. Kidneys shows several renal cysts. No ureteral dilatation or ureteral stone is seen. Bilobed abdominal aortic aneurysm is noted. Maximum AP dimension is about 3.2 cm in size which is felt to be fairly stable from previous exam. No retroperitoneal adenopathy is seen. No other mesenteric abnormalities are seen. No pelvic mass or adenopathy is noted. Diverticuli are seen within the sigmoid colon. Appendix is seen which is normal in size. Bone window settings were reviewed which show degenerative change primarily involving the apophyseal joints within the lumbar spine. No acute osseous abnormality is appreciated. Impression: 1. Inflammatory change which appears to be mostly centered around the duodenum. There is wall thickening within the duodenum as well as outpouching most likely representing duodenal diverticulum although findings could also represent duodenal ulcer. Endoscopy could be confirmatory if clinically needed. 2. Small cystic area adjacent to the pancreas and duodenum. This could represent small pseudocyst as well as a small abscess. 3. Slight haziness neck to the gallbladder. This may relate to the presumed duodenal abnormality but difficult to completely exclude cholecystitis. 4. No renal dilatation or ureteral stone is seen. 5. Stable appearing bilobed abdominal aortic aneurysm. Other incidental findings as noted above. Diagnostic code #3 Mostly agree with preliminary report from [facility] (please see above), finalized on 03/23/19, 7:27 AM Central Time, code #2
[2019-03-23] MEDS ORDERED: Ketorolac 30 MG/ML SDV IV PRN (15:22)
[2019-03-23] MEDS ORDERED: Ondansetron 4 MG Tab.DIS PO PRN (15:22)
[2019-03-23] MEDS ORDERED: Ondansetron 4 MG/2 ML SDV IV PRN (15:22)
[2019-03-23] MEDS ORDERED: Acetaminophen 325 MG Tab PO PRN (15:22)
[2019-03-23] MEDS ORDERED: 50% Dextrose in Water 50 ML Syringe IVPUSH PRN (15:27)
--- NOTE | 2019-03-23 15:43 | PCM.HP.2 ---
H&P History of Present Illness - General Date of Service: 03/23/19 Admit Problem/Dx: Admission Diagnosis/Problem Admission Diagnosis/Problem Acute febrile illness - History of Present Illness Initial Comments - Free Text/Narative: This is a 79-year-old male with extensive past medical history including diabetes mellitus, stage IV chronic kidney disease, recurrent nephrolithiasis and active multiple myeloma who comes to the ED complaining of severe right sided abdominal pain. As per patient he was awoken in the middle of the night by pain described as colicky but less sharp than when he has kidney stones, graded at a 7/10, no radiation, no alleviating or worsening factors. He did not attempt any medications or interventions at home. He does associate pain with nausea and vomiting; denies any fevers, chills, painful urination, diarrhea or constipation. Right Flank Pain Score (Numeric/FACES): 7 - Related Data Allergies/Adverse Reactions: Allergies Allergy/AdvReac Type Severity Reaction Status Date / Time Penicillins Allergy Anaphylactic Verified 03/23/19 11:38 Shock Home Medications: Home Meds Aspirin [Halfprin] 81 mg PO QAM 03/07/17 [History] Hydrocortisone/Acetic Acid [Hydrocortison-Acetic Acid Soln] 3 - 5 drop OT DAILY PRN 03/07/17 [History] Insulin Detemir [Levemir Flextouch] 10 unit SQ BEDTIME 03/07/17 [History] Insulin Detemir [Levemir Flextouch] 12 unit SQ QAM 03/07/17 [History] Isosorbide Mononitrate [Imdur] 60 mg PO DAILY 03/07/17 [History] Multivitamin with Minerals [Multivitamins with Minerals] 1 tab PO DAILY [History] Nitroglycerin [Nitrostat] 0.4 mg SL Q5M PRN 03/07/17 [History] Psyllium Husk (With Sugar) [Metamucil Powder] 2 tbsp PO QPM 03/07/17 [History] Simvastatin [Zocor] 20 mg PO BEDTIME 03/07/17 [History] glipiZIDE [Glipizide Xl] 10 mg PO BID 03/07/17 [History] Darbepoetin Sukhwinder in Polysorbat [Aranesp] 500 mcg SUBCUT ASDIRECTED 03/05/19 [ History] Ferrous Sulfate 65 mg PO DAILY 03/05/19 [History] Furosemide [Lasix] 40 mg PO ASDIRECTED PRN 03/05/19 [History] Metoprolol Tartrate 25 mg PO BID 03/05/19 [History] Sodium Bicarbonate 650 mg PO TID 03/05/19 [History] amLODIPine Besylate [Norvasc] 10 mg PO DAILY 03/05/19 [History] Omeprazole 20 mg PO DAILY 03/23/19 [History] Ubidecarenone [Coq-10] 200 mg PO DAILY 03/23/19 [History] Vit C/E/Zn/Coppr/Lutein/Zeaxan [Preservision Areds 2 Softgel] 1 cap PO BID 03/23 [History] Past Medical History - Past Health History Medical/Surgical History: Denies Medical/Surgical History HEENT History: Reports: Impaired Vision Other HEENT History: wears glasses Cardiovascular History: Reports: Bypass, High Cholesterol, Hypertension, Stents Genitourinary History: Reports: Renal Disease Other Genitourinary History: stage 4 renal failure Musculoskeletal History: Reports: Other (See Below) Other Musculoskeletal History: fractured knee cap and shoulder Endocrine/Metabolic History: Reports: Diabetes, Type II Hematologic History: Reports: Blood Transfusion(s) Oncologic (Cancer) History: Reports: Other (See Below) Other Oncologic History: multiple myeloma - Infectious Disease History Infectious Disease History: Reports: Chicken Pox, Influenza, Measles, Mumps - Past Surgical History HEENT Surgical History: Reports: Cataract Surgery Cardiovascular Surgical History: Reports: Coronary Artery Bypass Oncologic Surgical History: Reports: Bone Marrow Aspiration Social & Family History - Family History Family Medical History: Noncontributory - Tobacco Use Smoking Status *Q: Former Smoker Used Tobacco, but Quit: Yes Month/Year Tobacco Last Used: 1978 - Caffeine Use Caffeine Use: Reports: Coffee - Recreational Drug Use Recreational Drug Use: No H&P Review of Systems - Review of Systems: Review Of Systems: See Below General: Reports: Fever, Chills, Malaise, Weakness, Fatigue. Denies: Night Sweats, Diaphoresis, Decreased Appetite, Weight Loss, Weight Gain HEENT: Denies: Ear Pain, Eye Pain, Headaches, Hearing Changes, Post Nasal Drip, Sinus Congestion, Sore Throat, Visual Changes Pulmonary: Denies: Shortness of Breath, Wheezing, Cough, Sputum Cardiovascular: Denies: Chest Pain, Palpitations, Dyspnea on Exertion, Orthopnea , PND, Edema, Lightheadedness, Syncope Gastrointestinal: Reports: Abdominal Pain, Anorexia, Black Stool, Decreased Appetite, Nausea, Vomiting. Denies: Constipation, Diarrhea, Difficulty Swallowing, Distension, Flatus Musculoskeletal: Reports: Back Pain. Denies: Neck Pain, Shoulder Pain, Arm Pain Skin: Denies: Cyanosis, Jaundice, Mottled, Pallor, Diaphoresis, Dryness Psychiatric: Denies: Confusion, Depression, Anxiety, Agitation Neurological: Denies: Confusion, Dizziness, Headache Hematologic/Lymphatic: Reports: Anemia Exam - Exam Exam: See Below - Vital Signs Vital Signs: Last Vital Signs Temp 37.9 C 03/23/19 09:08 Pulse 79 03/23/19 10:33 Resp 24 H 03/23/19 10:33 BP 156/67 H 03/23/19 10:33 Pulse Ox 90 L 03/23/19 10:33 Weight: 91.172 kg - Exam General: Alert, Oriented, Cooperative HEENT: Conjunctiva Clear, Pupils Equal, Pupils Reactive Neck: Supple, Trachea Midline, Full Range of Motion Lungs: Clear to Auscultation, Normal Respiratory Effort. No: Decreased Breath Sounds, Crackles, Rales, Rhonchi, Wheezing Cardiovascular: Regular Rate, Regular Rhythm. No: Systolic Murmur, Diastolic Murmur, Rubs, Gallop/S3, Gallop/S4 GI/Abdominal Exam: Normal Bowel Sounds, Soft, Non-Tender Back Exam: Normal Inspection, CVA Tenderness (R) Extremities: Normal Inspection, Normal Range of Motion, Non-Tender, No Pedal Edema Skin: Warm, Dry, Intact Neuro Extensive - Mental Status: Alert, Oriented x3 Psychiatric: Alert, Normal Affect, Normal Mood - Patient Data Lab Results Last 24 hrs: Laboratory Results - last 24 hr 03/23/19 03/23/19 03/23/19 Range/Units 04:45 05:05 05:05 WBC 5.92 (4.23-9.07) K/mm3 RBC 2.24 L (4.63-6.08) M/mm3 Hgb 7.6 L D (13.7-17.5) gm/dl Hct 23.3 L (40.1-51.0) % MCV 104.0 H D (79.0-92.2) fl MCH 33.9 H (25.7-32.2) pg MCHC 32.6 (32.2-35.5) g/dl RDW Std Deviation 68.3 H (35.1-43.9) fL Plt Count 372 H D (163-337) K/mm3 MPV 8.7 L (9.4-12.3) fl Neutrophils % (Manual) 81 H (40-60) % Band Neutrophils % 0 (0-10) % Lymphocytes % (Manual) 12 L (20-40) % Atypical Lymphs % 0 % Monocytes % (Manual) 6 (2-10) % Eosinophils % (Manual) 1 (0.8-7.0) % Basophils % (Manual) 0 L (0.2-1.2) Platelet Estimate Adequate Plt Morphology Comment Normal Poikilocytosis 2+ moderate Macrocytosis 1+ slight RBC Morph Comment Not Reportable Puncture Site ABG pH (7.35-7.45) ABG pCO2 (35.0-45.0) mmHg ABG pO2 (80.0-100.0) mmHg ABG HCO3 (22.0-26.0) meq/L ABG O2 Saturation (96.0-97.0) % ABG Base Excess (-2-2.0) Alex Test A-a Gradient mmHg O2 Delivery Device Oxygen Flow Rate FiO2 (21.00-100.00) % Sodium 136 (136-145) mEq/L Potassium 5.3 H (3.5-5.1) mEq/L Chloride 106 (98-107) mEq/L Carbon Dioxide 16 L (21-32) mEq/L Anion Gap 19.3 H (5-15) BUN 71 H (7-18) mg/dL Creatinine 3.8 H D (0.7-1.3) mg/dL Est Cr Clr Drug Dosing 15.74 mL/min Estimated GFR (MDRD) 15 (>60) mL/min BUN/Creatinine Ratio 18.7 H (14-18) Glucose 231 H (83-115) mg/dL POC Glucose (83-110) mg/dL Lactic Acid (0.4-2.0) mmol/L Uric Acid (3.5-7.2) mg/dL Calcium 9.1 (8.5-10.1) mg/dL Magnesium (1.8-2.4) mg/dl Total Bilirubin 0.4 (0.2-1.0) mg/dL AST 16 (15-37) U/L ALT 29 (16-63) U/L Alkaline Phosphatase 104 (46-116) U/L C-Reactive Protein (<1.0) mg/dL NT-Pro-B Natriuret Pep (0-450) pg/mL Total Protein 8.2 (6.4-8.2) g/dl Albumin 3.0 L (3.4-5.0) g/dl Globulin 5.2 gm/dL Albumin/Globulin Ratio 0.6 L (1-2) Lipase (73-393) U/L Urine Color Yellow (Yellow) Urine Appearance Clear (Clear) Urine pH 6.0 (5.0-8.0) Ur Specific [place] 1.025 (1.005-1.030) Urine Protein 3+ H (Negative) Urine Glucose (UA) Negative (Negative) Urine Ketones Negative (Negative) Urine Occult Blood 2+ H (Negative) Urine Nitrite Negative (Negative) Urine Bilirubin Negative (Negative) Urine Urobilinogen 0.2 (0.2-1.0) Ur Leukocyte Esterase Negative (Negative) Urine RBC 0-5 (0-5) /hpf Urine WBC 5-10 H (0-5) /hpf Ur Epithelial Cells 0-5 (0-5) /hpf Urine Bacteria Few (FEW) /hpf Urine Mucus Not seen (FEW) /hpf Ketones (0.0-0.3) mM 03/23/19 03/23/19 03/23/19 Range/Units 05:05 05:05 05:05 WBC (4.23-9.07) K/mm3 RBC (4.63-6.08) M/mm3 Hgb (13.7-17.5) gm/dl Hct (40.1-51.0) % MCV (79.0-92.2) fl MCH (25.7-32.2) pg MCHC (32.2-35.5) g/dl RDW Std Deviation (35.1-43.9) fL Plt Count (163-337) K/mm3 MPV (9.4-12.3) fl Neutrophils % (Manual) (40-60) % Band Neutrophils % (0-10) % Lymphocytes % (Manual) (20-40) % Atypical Lymphs % % Monocytes % (Manual) (2-10) % Eosinophils % (Manual) (0.8-7.0) % Basophils % (Manual) (0.2-1.2) Platelet Estimate Plt Morphology Comment Poikilocytosis Macrocytosis RBC Morph Comment Puncture Site ABG pH (7.35-7.45) ABG pCO2 (35.0-45.0) mmHg ABG pO2 (80.0-100.0) mmHg ABG HCO3 (22.0-26.0) meq/L ABG O2 Saturation (96.0-97.0) % ABG Base Excess (-2-2.0) Alex Test A-a Gradient mmHg O2 Delivery Device Oxygen Flow Rate FiO2 (21.00-100.00) % Sodium (136-145) mEq/L Potassium (3.5-5.1) mEq/L Chloride (98-107) mEq/L Carbon Dioxide (21-32) mEq/L Anion Gap (5-15) BUN (7-18) mg/dL Creatinine (0.7-1.3) mg/dL Est Cr Clr Drug Dosing mL/min Estimated GFR (MDRD) (>60) mL/min BUN/Creatinine Ratio (14-18) Glucose (83-115) mg/dL POC Glucose (83-110) mg/dL Lactic Acid (0.4-2.0) mmol/L Uric Acid 7.1 (3.5-7.2) mg/dL Calcium (8.5-10.1) mg/dL Magnesium 2.0 (1.8-2.4) mg/dl Total Bilirubin (0.2-1.0) mg/dL AST (15-37) U/L ALT (16-63) U/L Alkaline Phosphatase (46-116) U/L C-Reactive Protein 2.5 H* (<1.0) mg/dL NT-Pro-B Natriuret Pep 4027 H (0-450) pg/mL Total Protein (6.4-8.2) g/dl Albumin (3.4-5.0) g/dl Globulin gm/dL Albumin/Globulin Ratio (1-2) Lipase (73-393) U/L Urine Color (Yellow) Urine Appearance (Clear) Urine pH (5.0-8.0) Ur Specific [place] (1.005-1.030) Urine Protein (Negative) Urine Glucose (UA) (Negative) Urine Ketones (Negative) Urine Occult Blood (Negative) Urine Nitrite (Negative) Urine Bilirubin (Negative) Urine Urobilinogen (0.2-1.0) Ur Leukocyte Esterase (Negative) Urine RBC (0-5) /hpf Urine WBC (0-5) /hpf Ur Epithelial Cells (0-5) /hpf Urine Bacteria (FEW) /hpf Urine Mucus (FEW) /hpf Ketones (0.0-0.3) mM 03/23/19 03/23/19 03/23/19 Range/Units 05:05 05:05 07:45 WBC (4.23-9.07) K/mm3 RBC (4.63-6.08) M/mm3 Hgb (13.7-17.5) gm/dl Hct (40.1-51.0) % MCV (79.0-92.2) fl MCH (25.7-32.2) pg MCHC (32.2-35.5) g/dl RDW Std Deviation (35.1-43.9) fL Plt Count (163-337) K/mm3 MPV (9.4-12.3) fl Neutrophils % (Manual) (40-60) % Band Neutrophils % (0-10) % Lymphocytes % (Manual) (20-40) % Atypical Lymphs % % Monocytes % (Manual) (2-10) % Eosinophils % (Manual) (0.8-7.0) % Basophils % (Manual) (0.2-1.2) Platelet Estimate Plt Morphology Comment Poikilocytosis Macrocytosis RBC Morph Comment Puncture Site ABG pH (7.35-7.45) ABG pCO2 (35.0-45.0) mmHg ABG pO2 (80.0-100.0) mmHg ABG HCO3 (22.0-26.0) meq/L ABG O2 Saturation (96.0-97.0) % ABG Base Excess (-2-2.0) Alex Test A-a Gradient mmHg O2 Delivery Device Oxygen Flow Rate FiO2 (21.00-100.00) % Sodium (136-145) mEq/L Potassium (3.5-5.1) mEq/L Chloride (98-107) mEq/L Carbon Dioxide (21-32) mEq/L Anion Gap (5-15) BUN (7-18) mg/dL Creatinine (0.7-1.3) mg/dL Est Cr Clr Drug Dosing mL/min Estimated GFR (MDRD) (>60) mL/min BUN/Creatinine Ratio (14-18) Glucose (83-115) mg/dL POC Glucose (83-110) mg/dL Lactic Acid 0.8 (0.4-2.0) mmol/L Uric Acid (3.5-7.2) mg/dL Calcium (8.5-10.1) mg/dL Magnesium (1.8-2.4) mg/dl Total Bilirubin (0.2-1.0) mg/dL AST (15-37) U/L ALT (16-63) U/L Alkaline Phosphatase (46-116) U/L C-Reactive Protein (<1.0) mg/dL NT-Pro-B Natriuret Pep (0-450) pg/mL Total Protein (6.4-8.2) g/dl Albumin (3.4-5.0) g/dl Globulin gm/dL Albumin/Globulin Ratio (1-2) Lipase 234 (73-393) U/L Urine Color (Yellow) Urine Appearance (Clear) Urine pH (5.0-8.0) Ur Specific [place] (1.005-1.030) Urine Protein (Negative) Urine Glucose (UA) (Negative) Urine Ketones (Negative) Urine Occult Blood (Negative) Urine Nitrite (Negative) Urine Bilirubin (Negative) Urine Urobilinogen (0.2-1.0) Ur Leukocyte Esterase (Negative) Urine RBC (0-5) /hpf Urine WBC (0-5) /hpf Ur Epithelial Cells (0-5) /hpf Urine Bacteria (FEW) /hpf Urine Mucus (FEW) /hpf Ketones 0.3 (0.0-0.3) mM 03/23/19 03/23/19 Range/Units 09:03 10:10 WBC (4.23-9.07) K/mm3 RBC (4.63-6.08) M/mm3 Hgb (13.7-17.5) gm/dl Hct (40.1-51.0) % MCV (79.0-92.2) fl MCH (25.7-32.2) pg MCHC (32.2-35.5) g/dl RDW Std Deviation (35.1-43.9) fL Plt Count (163-337) K/mm3 MPV (9.4-12.3) fl Neutrophils % (Manual) (40-60) % Band Neutrophils % (0-10) % Lymphocytes % (Manual) (20-40) % Atypical Lymphs % % Monocytes % (Manual) (2-10) % Eosinophils % (Manual) (0.8-7.0) % Basophils % (Manual) (0.2-1.2) Platelet Estimate Plt Morphology Comment Poikilocytosis Macrocytosis RBC Morph Comment Puncture Site Lt radial ABG pH 7.32 L (7.35-7.45) ABG pCO2 29.0 L (35.0-45.0) mmHg ABG pO2 73.0 L (80.0-100.0) mmHg ABG HCO3 14.6 L (22.0-26.0) meq/L ABG O2 Saturation 93.7 L (96.0-97.0) % ABG Base Excess -10.0 L (-2-2.0) Alex Test Positive A-a Gradient 41 mmHg O2 Delivery Device Room air Oxygen Flow Rate 0.0 FiO2 21.00 (21.00-100.00) % Sodium (136-145) mEq/L Potassium (3.5-5.1) mEq/L Chloride (98-107) mEq/L Carbon Dioxide (21-32) mEq/L Anion Gap (5-15) BUN (7-18) mg/dL Creatinine (0.7-1.3) mg/dL Est Cr Clr Drug Dosing mL/min Estimated GFR (MDRD) (>60) mL/min BUN/Creatinine Ratio (14-18) Glucose (83-115) mg/dL POC Glucose 217 H (83-110) mg/dL Lactic Acid (0.4-2.0) mmol/L Uric Acid (3.5-7.2) mg/dL Calcium (8.5-10.1) mg/dL Magnesium (1.8-2.4) mg/dl Total Bilirubin (0.2-1.0) mg/dL AST (15-37) U/L ALT (16-63) U/L Alkaline Phosphatase (46-116) U/L C-Reactive Protein (<1.0) mg/dL NT-Pro-B Natriuret Pep (0-450) pg/mL Total Protein (6.4-8.2) g/dl Albumin (3.4-5.0) g/dl Globulin gm/dL Albumin/Globulin Ratio (1-2) Lipase (73-393) U/L Urine Color (Yellow) Urine Appearance (Clear) Urine pH (5.0-8.0) Ur Specific [place] (1.005-1.030) Urine Protein (Negative) Urine Glucose (UA) (Negative) Urine Ketones (Negative) Urine Occult Blood (Negative) Urine Nitrite (Negative) Urine Bilirubin (Negative) Urine Urobilinogen (0.2-1.0) Ur Leukocyte Esterase (Negative) Urine RBC (0-5) /hpf Urine WBC (0-5) /hpf Ur Epithelial Cells (0-5) /hpf Urine Bacteria (FEW) /hpf Urine Mucus (FEW) /hpf Ketones (0.0-0.3) mM Result Diagrams: 03/26/19 04:53 03/26/19 04:53 *Q Meaningful Use (ADM) - VTE *Q VTE Anticoagulation Contraindications: Medical/Procedure Contrai - Problem List (1) Acute right flank pain SNOMED Code(s): 378788745, 935071693 ICD Code: R10.9 - UNSPECIFIED ABDOMINAL PAIN Status: Acute Current Visit : Yes (2) Multiple myeloma SNOMED Code(s): 095955474 ICD Code: C90.00 - MULTIPLE MYELOMA NOT HAVING ACHIEVED REMISSION Status: Acute Current Visit: Yes (3) Coronary artery disease involving coronary bypass graft without angina pectoris SNOMED Code(s): 215310662 ICD Code: I25.810 - ATHEROSCLEROSIS OF CABG W/O ANGINA PECTORIS Status: Acute Current Visit: Yes (4) Dyslipidemia SNOMED Code(s): 232800184 ICD Code: E78.5 - HYPERLIPIDEMIA, UNSPECIFIED Status: Acute Current Visit : Yes (5) Recurrent nephrolithiasis SNOMED Code(s): 71469998, 12114938 ICD Code: N20.0 - CALCULUS OF KIDNEY Status: Acute Current Visit: Yes (6) Acute worsening of stage 4 chronic kidney disease SNOMED Code(s): 300948847 ICD Code: N18.4 - CHRONIC KIDNEY DISEASE, STAGE 4 (SEVERE) Status: Acute Current Visit: Yes (7) Macrocytic anemia SNOMED Code(s): 16964893 ICD Code: D53.9 - NUTRITIONAL ANEMIA, UNSPECIFIED Status: Acute Current Visit: Yes (8) Hyperkalemia SNOMED Code(s): 21823311 ICD Code: E87.5 - HYPERKALEMIA Status: Acute Current Visit: Yes (9) Congestive heart failure SNOMED Code(s): 81092015 ICD Code: I50.9 - HEART FAILURE, UNSPECIFIED Status: Acute Current Visit : Yes Qualifiers: Heart failure type: combined systolic and diastolic Heart failure chronicity: chronic Qualified Code(s): I50.42 - Chronic combined systolic ( congestive) and diastolic (congestive) heart failure (10) Fever SNOMED Code(s): 793820534 ICD Code: R50.9 - FEVER, UNSPECIFIED Status: Acute Current Visit: Yes Qualifiers: Encounter type: initial encounter (11) Nausea and vomiting in adult patient SNOMED Code(s): 14720825 ICD Code: R11.2 - NAUSEA WITH VOMITING, UNSPECIFIED Status: Acute Current Visit: Yes (12) Type 2 diabetes mellitus SNOMED Code(s): 29084084 ICD Code: E11.9 - TYPE 2 DIABETES MELLITUS WITHOUT COMPLICATIONS Status: Acute Current Visit: Yes Qualifiers: Diabetes mellitus termite treater helper insulin use: with termite treater helper use Diabetes mellitus complication status: with kidney complications Diabetes mellitus complication detail: with chronic kidney disease Chronic kidney disease stage : stage 5, not on chronic dialysis Qualified Code(s): E11.22 - Type 2 diabetes mellitus with diabetic chronic kidney disease; N18.5 - Chronic kidney disease, stage 5; Z79.4 - intermodal truck driver (current) use of insulin (13) High anion gap metabolic acidosis SNOMED Code(s): 64628068 ICD Code: E87.2 - ACIDOSIS Status: Acute Current Visit: Yes (14) Bleeding of unknown origin SNOMED Code(s): 247661550 ICD Code: R58 - HEMORRHAGE, NOT ELSEWHERE CLASSIFIED Status: Acute Current Visit: Yes (15) Heart failure SNOMED Code(s): 84877625 ICD Code: I50.9 - HEART FAILURE, UNSPECIFIED Status: Acute Current Visit : Yes (16) Ex-heavy cigarette smoker (20-39 per day) SNOMED Code(s): 551796863 ICD Code: Z87.891 - PERSONAL HISTORY OF NICOTINE DEPENDENCE Status: Acute Current Visit: Yes (17) Polypharmacy SNOMED Code(s): 520097212 ICD Code: Z79.899 - OTHER CARE HOME (CURRENT) DRUG THERAPY Status: Acute Current Visit: Yes (18) Abdominal aortic aneurysm (AAA) 3.0 cm to 5.5 cm in diameter in male SNOMED Code(s): 866726289 ICD Code: I71.4 - ABDOMINAL AORTIC ANEURYSM, WITHOUT RUPTURE Status: Acute Current Visit: Yes (19) Hematuria SNOMED Code(s): 93200091 ICD Code: R31.9 - HEMATURIA, UNSPECIFIED Status: Acute Current Visit: Yes (20) Hernia, hiatal SNOMED Code(s): 68596865 ICD Code: K44.9 - DIAPHRAGMATIC HERNIA WITHOUT OBSTRUCTION OR GANGRENE Status: Acute Current Visit: Yes (21) Abnormal gall bladder diagnostic imaging SNOMED Code(s): 396292616, 282748914 ICD Code: R93.2 - ABNORMAL FINDINGS ON DX IMAGING OF LIVER AND BILIARY TRACT Status: Acute Current Visit: Yes Problem List Initiated/Reviewed/Updated: Yes Assessment/Plan Comment:: Acute right flank pain with Abnormal gall bladder diagnostic imaging There is a concern for acalculous cholecystitis to 2 mild thickening of the gallbladder wall and location of pain Due to patient's comorbidities he is going to need empiric antibiotic coverage PLAN Starting cefepime and metronidazole Monitor for fever Panculture febrile Pain control with Tylenol, Toradol or morphine as needed Acute on chronic Macrocytic anemia History of multiple myeloma and chronic anemia 3 weeks ago patient's hemoglobin was 6.7, received a platelet transfusion On 03/19 patient hemoglobin was 8.1, 7.[address] qabdomen with thickening of duodenum--> could be ulcer and could be cause of dropping of Hb PLAN - FIT in stool, since patient is on iron supplementation - F/U on results - Discuss case with gear inspector Dr. Prieto in the AM Multiple myeloma Diagnosed 3 years ago Candidate for bone marrow transplant due to age Currently undergoing treatment with Aranesp (darbopoietin) every 2 weeks Is scheduled to get a bone marrow biopsy in 2 days PLAN - Consult patient's oncologist Was in AM to discuss plan of care regarding anemia Acute worsening of stage 4 chronic kidney disease Verbal report by patient of stage IV kidney disease PLAN Renally dose medications Monitor urine output Request records Repeat BMP with magnesium and phosphate in a.m. Replace electrolytes as needed Hyperkalemia Descemet admission 5.3 EKG without any T-wave or ST segment changes Given insulin for elevated glucose Patient admitted on IV fluid status will likely improve this level in the a.m. PLAN Repeat levels in the morning including magnesium and phosphate Ischemic Congestive heart failure, unknown ejection fraction in the setting of CAD status post CABG 3 Patient states that he has gotten a previous echocardiogram but does not recall date Some signs of volume overload on admission Given IV Lasix in the emergency department PLAN Strict intake and output Daily weights Request records for echocardiogram Heart healthy diet Type 2 diabetes mellitus, Unknown hemoglobin A1c Admission glucose 231 PLAN Accu-Cheks before meals and bed Diabetic diet Repeat hemoglobin A1c if no value available Heavily symmetrical Sliding scale Compensated anion gap metabolic acidosis Glucose 231, and Gap 19.3 Likely explained by uremia No ketones in urine and negative and blood Abdominal aortic aneurysm (AAA) 3.0 cm to 5.5 cm in diameter in male On known if worsen Patient does not recall last CT scan Plan We'll recommend for PCP to follow up Hematuria in the setting of previous nephrolithiasis Patient has had multiple kidney stones on the left kidney Underwent lithotripsy at year ago Describes abdominal pain as very similar Urinalysis with 5-10 RBCs No CVA tenderness PLAN Continue to monitor Polypharmacy Will reconcile medications according to BEERS criteria prior to discharge Ex-heavy cigarette smoker (20-39 per day) Quit over 10 years ago Dyslipidemia No acute issues PLAN Continue home medications PROPHYLAXIS DVTcontraindicated due to concern for bleeding GIpantoprazole. CODE STATUS: FULL CODE DISPOSITION: Patient will be admitted under observation, IV antibiotics have been started to cover for acalculous cholecystitis according to patient's risk factors, we will discuss case with patient's oncologist in the morning regarding anemia to come up with plan for workup.
[2019-03-23 15:50] LABS: HEMOGLOBIN A1C 6.2 % (4.50-6.20)
[2019-03-23] MEDS: metroNIDAZOLE/Normal Saline 500 MG in Premix Bag 1 BAG IV SCH (17:29)
[2019-03-23] MEDS: Cefepime 1 GM in Premix Bag 1 BAG IV SCH (17:29)
[2019-03-23] MEDS: Insulin Lispro 100 Units/ML 3 ML Vial SUBCUT SCH ×2 (17:44→22:20)
[2019-03-24] MEDS: metroNIDAZOLE/Normal Saline 500 MG in Premix Bag 1 BAG IV SCH ×3 (00:59→17:31)
[2019-03-24] MEDS: Insulin Lispro 100 Units/ML 3 ML Vial SUBCUT SCH ×4 (07:04→21:22)
[2019-03-24] MEDS: Cefepime 1 GM in Premix Bag 1 BAG IV SCH (16:03)
[2019-03-24] MEDS ORDERED: Furosemide 40 MG Tab PO PRN (19:36)
--- NOTE | 2019-03-24 20:32 | PCM.PN ---
- General Info Date of Service: 03/24/19 - Patient Data Vitals - Most Recent: Last Vital Signs Temp 37.0 C 03/24/19 15:31 Pulse 80 03/24/19 15:31 Resp 20 03/24/19 15:31 BP 141/65 H 03/24/19 15:31 Pulse Ox 93 L 03/24/19 15:31 Weight - Most Recent: 89.721 kg I&O - Last 24 Hours: Intake & Output 03/24/19 03/24/19 03/24/19 06:59 14:59 22:59 Intake Total 800 600 300 Output Total 900 Balance -100 600 300 Lab Results Last 24 Hours: Laboratory Results - last 24 hr 03/23/19 03/24/19 03/24/19 Range/Units 22:10 05:16 06:01 WBC 6.70 (4.23-9.07) K/mm3 RBC 2.34 L (4.63-6.08) M/mm3 Hgb 7.9 L (13.7-17.5) gm/dl Hct 24.6 L (40.1-51.0) % MCV 105.1 H (79.0-92.2) fl MCH 33.8 H (25.7-32.2) pg MCHC 32.1 L (32.2-35.5) g/dl RDW Std Deviation 70.3 H (35.1-43.9) fL Plt Count 363 H (163-337) K/mm3 MPV 9.1 L (9.4-12.3) fl Neut % (Auto) 53.1 (34.0-67.9) % Lymph % (Auto) 32.5 (21.8-53.1) % [place] % (Auto) 10.4 (5.3-12.2) % Eos % (Auto) 3.4 (0.8-7.0) Baso % (Auto) 0.3 (0.1-1.2) % Neut # (Auto) 3.55 (1.78-5.38) K/mm3 Lymph # (Auto) 2.18 (1.32-3.57) K/mm3 [place] # (Auto) 0.70 (0.30-0.82) K/mm3 Eos # (Auto) 0.23 (0.04-0.54) K/mm3 Baso # (Auto) 0.02 (0.01-0.08) K/mm3 Manual Slide Review Abnormal smear PT (9.7-12.0) SECONDS INR Sodium (136-145) mEq/L Potassium (3.5-5.1) mEq/L Chloride (98-107) mEq/L Carbon Dioxide (21-32) mEq/L Anion Gap (5-15) BUN (7-18) mg/dL Creatinine (0.7-1.3) mg/dL Est Cr Clr Drug Dosing mL/min Estimated GFR (MDRD) (>60) mL/min BUN/Creatinine Ratio (14-18) Glucose (83-115) mg/dL POC Glucose 233 H 93 (83-110) mg/dL Calcium (8.5-10.1) mg/dL Phosphorus (2.6-4.7) mg/dL Magnesium (1.8-2.4) mg/dl Total Bilirubin (0.2-1.0) mg/dL AST (15-37) U/L ALT (16-63) U/L Alkaline Phosphatase (46-116) U/L Total Protein (6.4-8.2) g/dl Albumin (3.4-5.0) g/dl Globulin gm/dL Albumin/Globulin Ratio (1-2) 03/24/19 03/24/19 03/24/19 Range/Units 06:07 06:07 11:34 WBC (4.23-9.07) K/mm3 RBC (4.63-6.08) M/mm3 Hgb (13.7-17.5) gm/dl Hct (40.1-51.0) % MCV (79.0-92.2) fl MCH (25.7-32.2) pg MCHC (32.2-35.5) g/dl RDW Std Deviation (35.1-43.9) fL Plt Count (163-337) K/mm3 MPV (9.4-12.3) fl Neut % (Auto) (34.0-67.9) % Lymph % (Auto) (21.8-53.1) % [place] % (Auto) (5.3-12.2) % Eos % (Auto) (0.8-7.0) Baso % (Auto) (0.1-1.2) % Neut # (Auto) (1.78-5.38) K/mm3 Lymph # (Auto) (1.32-3.57) K/mm3 [place] # (Auto) (0.30-0.82) K/mm3 Eos # (Auto) (0.04-0.54) K/mm3 Baso # (Auto) (0.01-0.08) K/mm3 Manual Slide Review PT 11.1 (9.7-12.0) SECONDS INR 1.02 Sodium 138 (136-145) mEq/L Potassium 5.0 (3.5-5.1) mEq/L Chloride 107 (98-107) mEq/L Carbon Dioxide 17 L (21-32) mEq/L Anion Gap 19.0 H (5-15) BUN 72 H (7-18) mg/dL Creatinine 4.6 H (0.7-1.3) mg/dL Est Cr Clr Drug Dosing 13.00 mL/min Estimated GFR (MDRD) 12 (>60) mL/min BUN/Creatinine Ratio 15.7 (14-18) Glucose 96 (83-115) mg/dL POC Glucose 269 H (83-110) mg/dL Calcium 9.1 (8.5-10.1) mg/dL Phosphorus 5.3 H (2.6-4.7) mg/dL Magnesium 2.0 (1.8-2.4) mg/dl Total Bilirubin 0.3 (0.2-1.0) mg/dL AST 16 (15-37) U/L ALT 25 (16-63) U/L Alkaline Phosphatase 105 (46-116) U/L Total Protein 8.0 (6.4-8.2) g/dl Albumin 2.8 L (3.4-5.0) g/dl Globulin 5.2 gm/dL Albumin/Globulin Ratio 0.5 L (1-2) 03/24/19 Range/Units 17:26 WBC (4.23-9.07) K/mm3 RBC (4.63-6.08) M/mm3 Hgb (13.7-17.5) gm/dl Hct (40.1-51.0) % MCV (79.0-92.2) fl MCH (25.7-32.2) pg MCHC (32.2-35.5) g/dl RDW Std Deviation (35.1-43.9) fL Plt Count (163-337) K/mm3 MPV (9.4-12.3) fl Neut % (Auto) (34.0-67.9) % Lymph % (Auto) (21.8-53.1) % [place] % (Auto) (5.3-12.2) % Eos % (Auto) (0.8-7.0) Baso % (Auto) (0.1-1.2) % Neut # (Auto) (1.78-5.38) K/mm3 Lymph # (Auto) (1.32-3.57) K/mm3 [place] # (Auto) (0.30-0.82) K/mm3 Eos # (Auto) (0.04-0.54) K/mm3 Baso # (Auto) (0.01-0.08) K/mm3 Manual Slide Review PT (9.7-12.0) SECONDS INR Sodium (136-145) mEq/L Potassium (3.5-5.1) mEq/L Chloride (98-107) mEq/L Carbon Dioxide (21-32) mEq/L Anion Gap (5-15) BUN (7-18) mg/dL Creatinine (0.7-1.3) mg/dL Est Cr Clr Drug Dosing mL/min Estimated GFR (MDRD) (>60) mL/min BUN/Creatinine Ratio (14-18) Glucose (83-115) mg/dL POC Glucose 83 (83-110) mg/dL Calcium (8.5-10.1) mg/dL Phosphorus (2.6-4.7) mg/dL Magnesium (1.8-2.4) mg/dl Total Bilirubin (0.2-1.0) mg/dL AST (15-37) U/L ALT (16-63) U/L Alkaline Phosphatase (46-116) U/L Total Protein (6.4-8.2) g/dl Albumin (3.4-5.0) g/dl Globulin gm/dL Albumin/Globulin Ratio (1-2) Med Orders - Current: Current Medications Acetaminophen (Tylenol) 650 mg PO Q4H PRN PRN Reason: Pain (Mild 1-3)/fever Amlodipine Besylate (Norvasc) 10 mg PO DAILY [facility] Dextrose/Water (Dextrose 50% In Water) 50 ml IVPUSH ASDIRECTED PRN PRN Reason: Hypoglycemia Ferrous Sulfate (Ferrous Sulfate) 325 mg PO DAILY [facility] Furosemide (Lasix) 40 mg PO ASDIRECTED PRN PRN Reason: Leg Swelling Cefepime HCl 1 gm/ Premix 50 mls @ 100 mls/hr IV Q24H [facility] Last Admin: 03/24/19 16:03 Dose: 100 mls/hr Metronidazole 500 mg/ Premix 100 mls @ 100 mls/hr IV Q8H [facility] Last Admin: 03/24/19 17:31 Dose: 100 mls/hr Insulin Glargine (Lantus) 15 unit SUBCUT DAILY [facility] Insulin Human Lispro (Humalog) 0 unit SUBCUT QIDACANDBED [facility]; Protocol Last Admin: 03/24/19 18:05 Dose: Not Given Isosorbide Mononitrate (Imdur) 60 mg PO DAILY [facility] Metoprolol Tartrate (Lopressor) 25 mg PO BID [facility] Multivitamins (Thera) 1 each PO DAILY [facility] Non-Formulary Medication (Psyllium Husk (With Sugar) [Metamucil Powder]) 2 tbsp PO QPM [facility] Ondansetron HCl (Zofran Odt) 4 mg PO Q6H PRN PRN Reason: nausea, able to take PO Ondansetron HCl (Zofran) 4 mg IV Q6H PRN PRN Reason: Nausea/Vomiting Sodium Bicarbonate (Sodium Bicarbonate) 650 mg PO TID [facility] Discontinued Medications Acetaminophen (Tylenol) 650 mg PO ONETIME ONE Stop: 03/23/19 08:36 Last Admin: 03/23/19 09:07 Dose: 650 mg Fentanyl (Sublimaze) 50 mcg IVPUSH ONETIME ONE Stop: 03/23/19 05:22 Last Admin: 03/23/19 05:24 Dose: 50 mcg Furosemide (Lasix) 40 mg IVPUSH NOW ONE Stop: 03/23/19 08:41 Last Admin: 03/23/19 09:05 Dose: 40 mg Hydromorphone HCl (Dilaudid) 0.5 mg IVPUSH ONETIME ONE Stop: 03/23/19 07:59 Last Admin: 03/23/19 08:09 Dose: 0.5 mg Ceftriaxone Sodium 2 gm/ (Sodium Chloride) 100 mls @ 200 mls/hr IV Q24H [facility] Last Admin: 03/23/19 07:55 Dose: 200 mls/hr Sodium Chloride (Normal Saline) 1,000 mls @ 125 mls/hr IV ASDIRECTED [facility] Last Admin: 03/23/19 09:03 Dose: 125 mls/hr Insulin Glargine (Lantus) 12 unit SUBCUT ONETIME ONE Stop: 03/23/19 08:22 Last Admin: 03/23/19 09:04 Dose: 12 units Ketorolac Tromethamine (Toradol) 30 mg IV Q6H PRN PRN Reason: Pain (moderate 4-6) Metoclopramide HCl (Reglan) 7.5 mg IVPUSH ONETIME ONE Stop: 03/23/19 07:59 Last Admin: 03/23/19 08:08 Dose: 7.5 mg Ondansetron HCl (Zofran) 4 mg IVPUSH ONETIME ONE Stop: 03/23/19 05:42 Last Admin: 03/23/19 05:51 Dose: 4 mg - Problem List & Annotations (1) Acute right flank pain SNOMED Code(s): 430393388, 355312823 Code(s): R10.9 - UNSPECIFIED ABDOMINAL PAIN Status: Acute Current Visit: Yes (2) Dyslipidemia SNOMED Code(s): 006221228 Code(s): E78.5 - HYPERLIPIDEMIA, UNSPECIFIED Status: Acute Current Visit : Yes (3) Recurrent nephrolithiasis SNOMED Code(s): 49990177, 91586367 Code(s): N20.0 - CALCULUS OF KIDNEY Status: Acute Current Visit: Yes (4) Acute worsening of stage 4 chronic kidney disease SNOMED Code(s): 209880917 Code(s): N18.4 - CHRONIC KIDNEY DISEASE, STAGE 4 (SEVERE) Status: Acute Current Visit: Yes (5) Macrocytic anemia SNOMED Code(s): 93309567 Code(s): D53.9 - NUTRITIONAL ANEMIA, UNSPECIFIED Status: Acute Current Visit: Yes (6) Hyperkalemia SNOMED Code(s): 77009647 Code(s): E87.5 - HYPERKALEMIA Status: Acute Current Visit: Yes (7) Congestive heart failure SNOMED Code(s): 88574195 Code(s): I50.9 - HEART FAILURE, UNSPECIFIED Status: Acute Current Visit: Yes Qualifiers: Heart failure type: combined systolic and diastolic Heart failure chronicity: chronic Qualified Code(s): I50.42 - Chronic combined systolic ( congestive) and diastolic (congestive) heart failure (8) Fever SNOMED Code(s): 601999182 Code(s): R50.9 - FEVER, UNSPECIFIED Status: Acute Current Visit: Yes Qualifiers: Encounter type: initial encounter (9) Nausea and vomiting in adult patient SNOMED Code(s): 53060041 Code(s): R11.2 - NAUSEA WITH VOMITING, UNSPECIFIED Status: Acute Current Visit: Yes (10) Type 2 diabetes mellitus SNOMED Code(s): 85692084 Code(s): E11.9 - TYPE 2 DIABETES MELLITUS WITHOUT COMPLICATIONS Status: Acute Current Visit: Yes Qualifiers: Diabetes mellitus detention insulin use: with detention use Diabetes mellitus complication status: with kidney complications Diabetes mellitus complication detail: with chronic kidney disease Chronic kidney disease stage : stage 5, not on chronic dialysis Qualified Code(s): E11.22 - Type 2 diabetes mellitus with diabetic chronic kidney disease; N18.5 - Chronic kidney disease, stage 5; Z79.4 - alf (current) use of insulin (11) High anion gap metabolic acidosis SNOMED Code(s): 14558966 Code(s): E87.2 - ACIDOSIS Status: Acute Current Visit: Yes (12) Bleeding of unknown origin SNOMED Code(s): 635403096 Code(s): R58 - HEMORRHAGE, NOT ELSEWHERE CLASSIFIED Status: Acute Current Visit: Yes (13) Heart failure SNOMED Code(s): 96586555 Code(s): I50.9 - HEART FAILURE, UNSPECIFIED Status: Acute Current Visit: Yes (14) Ex-heavy cigarette smoker (20-39 per day) SNOMED Code(s): 458920954 Code(s): Z87.891 - PERSONAL HISTORY OF NICOTINE DEPENDENCE Status: Acute Current Visit: Yes (15) Polypharmacy SNOMED Code(s): 036011362 Code(s): Z79.899 - OTHER FOOD CONSULTANT (CURRENT) DRUG THERAPY Status: Acute Current Visit: Yes (16) Abdominal aortic aneurysm (AAA) 3.0 cm to 5.5 cm in diameter in male SNOMED Code(s): 523888418 Code(s): I71.4 - ABDOMINAL AORTIC ANEURYSM, WITHOUT RUPTURE Status: Acute Current Visit: Yes (17) Hematuria SNOMED Code(s): 75517753 Code(s): R31.9 - HEMATURIA, UNSPECIFIED Status: Acute Current Visit: Yes (18) Hernia, hiatal SNOMED Code(s): 59617537 Code(s): K44.9 - DIAPHRAGMATIC HERNIA WITHOUT OBSTRUCTION OR GANGRENE Status: Acute Current Visit: Yes (19) Abnormal gall bladder diagnostic imaging SNOMED Code(s): 270966798, 159957042 Code(s): R93.2 - ABNORMAL FINDINGS ON DX IMAGING OF LIVER AND BILIARY TRACT Status: Acute Current Visit: Yes (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 SNOMED Code(s): 942728119 Code(s): C90.00 - MULTIPLE MYELOMA NOT HAVING ACHIEVED REMISSION Status: Acute Current Visit: Yes (21) Hyperphosphatemia SNOMED Code(s): 85025845 Code(s): E83.39 - OTHER DISORDERS OF PHOSPHORUS METABOLISM Status: Acute Current Visit: Yes - Problem List Review Problem List Initiated/Reviewed/Updated: Yes - Plan Plan:: Acute right flank pain with Abnormal gall bladder diagnostic imaging There is a concern for acalculous cholecystitis to 2 mild thickening of the gallbladder wall and location of pain Due to patient's comorbidities he is going to need empiric antibiotic coverage PLAN Continue cefepime and metronidazole Monitor for fever Panculture febrile Pain control with Tylenol, Toradol or morphine as needed Acute on chronic Macrocytic anemia History of multiple myeloma and chronic anemia 3 weeks ago patient's hemoglobin was 6.7, received a platelet transfusion On 03/19 patient hemoglobin was 8.1, 7.6 on admission , 7.[address] abdomen with thickening of duodenum--> could be ulcer and could be cause of dropping of Hb Was Agrees to wait on repeat hemoglobin and FIT test PLAN - FIT in stool, since patient is on iron supplementation - F/U on results 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 Patient states that he has gotten a previous echocardiogram but does not recall date Some signs of volume overload on admission Given IV Lasix in the emergency department PLAN Strict intake and output Daily weights Request records for echocardiogram Heart healthy diet Type 2 diabetes mellitus, Unknown hemoglobin A1c Admission glucose 231 PLAN Accu-Cheks before meals and bed Diabetic diet Repeat hemoglobin A1c if no value available Heavily symmetrical Sliding scale Abdominal aortic aneurysm (AAA) 3.0 cm to 5.5 cm in diameter in male On known if worsen Patient does not recall last CT scan Plan We'll recommend for PCP to follow up Hematuria in the setting of previous nephrolithiasis Patient has had multiple kidney stones on the left kidney Underwent lithotripsy at year ago Describes abdominal pain as very similar Urinalysis with 5-10 RBCs No CVA tenderness PLAN Continue to monitor Polypharmacy Will reconcile medications according to BEERS criteria prior to discharge Ex-heavy cigarette smoker (20-39 per day) Quit over 10 years ago Dyslipidemia No acute issues PLAN Continue home medications Compensated anion gap metabolic acidosis, resolved Hyperkalemia, resolved PROPHYLAXIS DVTcontraindicated due to concern for bleeding GIpantoprazole. CODE STATUS: FULL CODE DISPOSITION: Patient will be admitted under observation, IV antibiotics have been started to cover for acalculous cholecystitis according to patient's risk factors, we will discuss case with patient's oncologist in the morning regarding anemia to come up with plan for workup.
[2019-03-24] MEDS ORDERED: Sodium Bicarbonate 650 MG Tab PO SCH (21:00)
[2019-03-24] MEDS ORDERED: Metoprolol Tartrate 50 MG Tab PO SCH (21:00)
[2019-03-24] MEDS: Metoprolol Tartrate 50 MG Tab**OWN MED PO SCH (21:15)
[2019-03-24] MEDS: SODIUM BICARBONATE 650 MG PO SCH (21:17)
[2019-03-25] MEDS: metroNIDAZOLE/Normal Saline 500 MG in Premix Bag 1 BAG IV SCH ×2 (00:36→08:09)
[2019-03-25] MEDS: Insulin Lispro 100 Units/ML 3 ML Vial SUBCUT SCH ×4 (08:00→21:39)
[2019-03-25] MEDS: amLODIPine 10 MG Tab PO SCH (08:10)
[2019-03-25] MEDS: Ferrous Sulfate 325 MG Tab PO SCH (08:12)
[2019-03-25] MEDS: Multivitamins,Therapeutic Tab PO SCH (08:12)
[2019-03-25] MEDS: Isosorbide Mononitrate 60 MG Tab.ER PO SCH (08:12)
[2019-03-25] MEDS: Insulin Glarg,Human.Rec.Analog 100 UNIT/ML ML SUBCUT SCH (08:28)
[2019-03-25] MEDS: Metoprolol Tartrate 50 MG Tab**OWN MED PO SCH ×2 (08:32→21:38)
[2019-03-25] MEDS: SODIUM BICARBONATE 650 MG PO SCH ×3 (08:33→21:39)
--- NOTE | 2019-03-25 13:06 | PCM.PN ---
<Shashank Olivo - Last Filed: 03/25/19 18:49> - General Info Date of Service: 03/25/19 Admission Dx/Problem (Free Text): Admission Diagnosis/Problem Admission Diagnosis/Problem Acute febrile illness Functional Status: Reports: Pain Controlled, Tolerating Diet, Ambulating, Urinating. Denies: New Symptoms - Review of Systems General: Reports: Weakness (chronic but at baseline currently. ). Denies: Fever , Fatigue, Malaise, Chills HEENT: Reports: No Symptoms. Denies: Headaches, Sore Throat Pulmonary: Reports: No Symptoms. Denies: Shortness of Breath, Pleuritic Chest Pain, Cough, Sputum, Wheezing Cardiovascular: Reports: No Symptoms. Denies: Chest Pain, Palpitations, Edema Gastrointestinal: Reports: No Symptoms. Denies: Abdominal Pain, Constipation, Diarrhea, Nausea, Vomiting Genitourinary: Reports: No Symptoms. Denies: Pain Musculoskeletal: Reports: No Symptoms Skin: Reports: No Symptoms. Denies: Cyanosis Neurological: Reports: No Symptoms. Denies: Confusion, Difficulty Walking, Gait Disturbance Psychiatric: Reports: No Symptoms - Patient Data Vitals - Most Recent: Last Vital Signs Temp 97.6 F 03/25/19 08:00 Pulse 76 03/25/19 12:00 Resp 18 03/25/19 12:00 BP 123/58 L 03/25/19 12:00 Pulse Ox 97 03/25/19 12:00 Weight - Most Recent: 90.038 kg I&O - Last 24 Hours: Intake & Output 03/24/19 03/25/19 03/25/19 22:59 06:59 14:59 Intake Total 1225 300 300 Output Total 1100 1000 Balance 125 -700 300 Lab Results Last 24 Hours: Laboratory Results - last 24 hr 03/23/19 03/24/19 03/24/19 Range/Units 05:05 06:01 17:26 WBC (4.23-9.07) K/mm3 RBC (4.63-6.08) M/mm3 Hgb (13.7-17.5) gm/dl Hct (40.1-51.0) % MCV (79.0-92.2) fl MCH (25.7-32.2) pg MCHC (32.2-35.5) g/dl RDW Std Deviation (35.1-43.9) fL Plt Count (163-337) K/mm3 MPV (9.4-12.3) fl Neut % (Auto) (34.0-67.9) % Lymph % (Auto) (21.8-53.1) % [place] % (Auto) (5.3-12.2) % Eos % (Auto) (0.8-7.0) Baso % (Auto) (0.1-1.2) % Neut # (Auto) (1.78-5.38) K/mm3 Lymph # (Auto) (1.32-3.57) K/mm3 [place] # (Auto) (0.30-0.82) K/mm3 Eos # (Auto) (0.04-0.54) K/mm3 Baso # (Auto) (0.01-0.08) K/mm3 Manual Slide Review POC Glucose 83 (83-110) mg/dL Prealbumin 24.2 (17.0-34.0) mg/dL Procalcitonin 0.10 H (<0.10) ng/mL Blood Type Gel Antibody Screen 03/24/19 03/25/19 03/25/19 Range/Units 21:22 06:00 06:00 WBC 6.39 (4.23-9.07) K/mm3 RBC 2.12 L (4.63-6.08) M/mm3 Hgb 7.2 L* (13.7-17.5) gm/dl Hct 22.5 L (40.1-51.0) % MCV 106.1 H (79.0-92.2) fl MCH 34.0 H (25.7-32.2) pg MCHC 32.0 L (32.2-35.5) g/dl RDW Std Deviation 70.3 H (35.1-43.9) fL Plt Count 337 (163-337) K/mm3 MPV 8.9 L (9.4-12.3) fl Neut % (Auto) 48.1 (34.0-67.9) % Lymph % (Auto) 35.8 (21.8-53.1) % [place] % (Auto) 10.2 (5.3-12.2) % Eos % (Auto) 5.2 (0.8-7.0) Baso % (Auto) 0.5 (0.1-1.2) % Neut # (Auto) 3.08 (1.78-5.38) K/mm3 Lymph # (Auto) 2.29 (1.32-3.57) K/mm3 [place] # (Auto) 0.65 (0.30-0.82) K/mm3 Eos # (Auto) 0.33 (0.04-0.54) K/mm3 Baso # (Auto) 0.03 (0.01-0.08) K/mm3 Manual Slide Review Abnormal smear POC Glucose 153 H 95 (83-110) mg/dL Prealbumin (17.0-34.0) mg/dL Procalcitonin (<0.10) ng/mL Blood Type Gel Antibody Screen 03/25/19 03/25/19 03/25/19 Range/Units 06:00 10:49 11:35 WBC (4.23-9.07) K/mm3 RBC (4.63-6.08) M/mm3 Hgb (13.7-17.5) gm/dl Hct (40.1-51.0) % MCV (79.0-92.2) fl MCH (25.7-32.2) pg MCHC (32.2-35.5) g/dl RDW Std Deviation (35.1-43.9) fL Plt Count (163-337) K/mm3 MPV (9.4-12.3) fl Neut % (Auto) (34.0-67.9) % Lymph % (Auto) (21.8-53.1) % [place] % (Auto) (5.3-12.2) % Eos % (Auto) (0.8-7.0) Baso % (Auto) (0.1-1.2) % Neut # (Auto) (1.78-5.38) K/mm3 Lymph # (Auto) (1.32-3.57) K/mm3 [place] # (Auto) (0.30-0.82) K/mm3 Eos # (Auto) (0.04-0.54) K/mm3 Baso # (Auto) (0.01-0.08) K/mm3 Manual Slide Review POC Glucose 237 H 214 H (83-110) mg/dL Prealbumin (17.0-34.0) mg/dL Procalcitonin (<0.10) ng/mL Blood Type A NEGATIVE Gel Antibody Screen Negative 03/25/19 Range/Units 11:36 WBC (4.23-9.07) K/mm3 RBC (4.63-6.08) M/mm3 Hgb 7.0 L* (13.7-17.5) gm/dl Hct 21.4 L (40.1-51.0) % MCV (79.0-92.2) fl MCH (25.7-32.2) pg MCHC (32.2-35.5) g/dl RDW Std Deviation (35.1-43.9) fL Plt Count (163-337) K/mm3 MPV (9.4-12.3) fl Neut % (Auto) (34.0-67.9) % Lymph % (Auto) (21.8-53.1) % [place] % (Auto) (5.3-12.2) % Eos % (Auto) (0.8-7.0) Baso % (Auto) (0.1-1.2) % Neut # (Auto) (1.78-5.38) K/mm3 Lymph # (Auto) (1.32-3.57) K/mm3 [place] # (Auto) (0.30-0.82) K/mm3 Eos # (Auto) (0.04-0.54) K/mm3 Baso # (Auto) (0.01-0.08) K/mm3 Manual Slide Review POC Glucose (83-110) mg/dL Prealbumin (17.0-34.0) mg/dL Procalcitonin (<0.10) ng/mL Blood Type Gel Antibody Screen Med Orders - Current: Current Medications Acetaminophen (Tylenol) 650 mg PO Q4H PRN PRN Reason: Pain (Mild 1-3)/fever Amlodipine Besylate (Norvasc) 10 mg PO DAILY [facility] Last Admin: 03/25/19 08:10 Dose: 10 mg Dextrose/Water (Dextrose 50% In Water) 50 ml IVPUSH ASDIRECTED PRN PRN Reason: Hypoglycemia Ferrous Sulfate (Ferrous Sulfate) 325 mg PO DAILY [facility] Last Admin: 03/25/19 08:12 Dose: 325 mg Furosemide (Lasix) 40 mg PO ASDIRECTED PRN PRN Reason: Leg Swelling Insulin Glargine (Lantus) 15 unit SUBCUT DAILY [facility] Last Admin: 03/25/19 08:28 Dose: 15 unit Insulin Human Lispro (Humalog) 0 unit SUBCUT QIDACANDBED [facility]; Protocol Last Admin: 03/25/19 10:59 Dose: 4 units Isosorbide Mononitrate (Imdur) 60 mg PO DAILY [facility] Last Admin: 03/25/19 08:12 Dose: 60 mg Metoprolol Tartrate (Lopressor) 25 mg PO BID [facility] Last Admin: 03/25/19 08:32 Dose: 25 mg Metronidazole (Flagyl) 500 mg PO Q8H [facility] Multivitamins (Thera) 1 each PO DAILY [facility] Last Admin: 03/25/19 08:12 Dose: 1 each Ondansetron HCl (Zofran Odt) 4 mg PO Q6H PRN PRN Reason: nausea, able to take PO Ondansetron HCl (Zofran) 4 mg IV Q6H PRN PRN Reason: Nausea/Vomiting Psyllium Husk (Metamucil Sugar Free) 1 packet PO QPM [facility] Sodium Bicarbonate (Sodium Bicarbonate) 650 mg PO TID [facility] Last Admin: 03/25/19 08:33 Dose: 650 mg Discontinued Medications Acetaminophen (Tylenol) 650 mg PO ONETIME ONE Stop: 03/23/19 08:36 Last Admin: 03/23/19 09:07 Dose: 650 mg Fentanyl (Sublimaze) 50 mcg IVPUSH ONETIME ONE Stop: 03/23/19 05:22 Last Admin: 03/23/19 05:24 Dose: 50 mcg Furosemide (Lasix) 40 mg IVPUSH NOW ONE Stop: 03/23/19 08:41 Last Admin: 03/23/19 09:05 Dose: 40 mg Hydromorphone HCl (Dilaudid) 0.5 mg IVPUSH ONETIME ONE Stop: 03/23/19 07:59 Last Admin: 03/23/19 08:09 Dose: 0.5 mg Ceftriaxone Sodium 2 gm/ (Sodium Chloride) 100 mls @ 200 mls/hr IV Q24H [facility] Last Admin: 03/23/19 07:55 Dose: 200 mls/hr Sodium Chloride (Normal Saline) 1,000 mls @ 125 mls/hr IV ASDIRECTED [facility] Last Admin: 03/23/19 09:03 Dose: 125 mls/hr Cefepime HCl 1 gm/ Premix 50 mls @ 100 mls/hr IV Q24H [facility] Last Admin: 03/24/19 16:03 Dose: 100 mls/hr Metronidazole 500 mg/ Premix 100 mls @ 100 mls/hr IV Q8H [facility] Last Admin: 03/25/19 08:09 Dose: 100 mls/hr Insulin Glargine (Lantus) 12 unit SUBCUT ONETIME ONE Stop: 03/23/19 08:22 Last Admin: 03/23/19 09:04 Dose: 12 units Ketorolac Tromethamine (Toradol) 30 mg IV Q6H PRN PRN Reason: Pain (moderate 4-6) Metoclopramide HCl (Reglan) 7.5 mg IVPUSH ONETIME ONE Stop: 03/23/19 07:59 Last Admin: 03/23/19 08:08 Dose: 7.5 mg Metoprolol Tartrate (Lopressor) 25 mg PO BID [facility] Ondansetron HCl (Zofran) 4 mg IVPUSH ONETIME ONE Stop: 03/23/19 05:42 Last Admin: 03/23/19 05:51 Dose: 4 mg Sodium Bicarbonate (Sodium Bicarbonate) 650 mg PO TID [facility] - Exam Quality Assessment: DVT Prophylaxis General: Alert, Oriented, Cooperative HEENT: Pupils Equal, Pupils Reactive, EOMI, Mucous Membr. Moist/Alligator Neck: Supple, Trachea Midline Lungs: Clear to Auscultation, Normal Respiratory Effort Cardiovascular: Regular Rate, Regular Rhythm GI/Abdominal Exam: Normal Bowel Sounds, Soft, Non-Tender, No Distention, No Abnormal Bruit (Male) Exam: Deferred Back Exam: Normal Inspection, Full Range of Motion Extremities: Normal Inspection, Normal Range of Motion, Non-Tender, No Pedal Edema, Normal Capillary Refill Skin: Warm, Dry, Intact Neurological: No New Focal Deficit Psy/Mental Status: Alert, Normal Affect, Normal Mood - Problem List & Annotations (1) Abdominal aortic aneurysm (AAA) 3.0 cm to 5.5 cm in diameter in male SNOMED Code(s): 480259886 Code(s): I71.4 - ABDOMINAL AORTIC ANEURYSM, WITHOUT RUPTURE Status: Acute Current Visit: Yes (2) Abdominal pain SNOMED Code(s): 51342795 Code(s): R10.9 - UNSPECIFIED ABDOMINAL PAIN Status: Acute Current Visit: Yes Qualifiers: Abdominal location: right upper quadrant Qualified Code(s): R10.11 - Right upper quadrant pain (3) Abnormal gall bladder diagnostic imaging SNOMED Code(s): 138933386, 645629539 Code(s): R93.2 - ABNORMAL FINDINGS ON DX IMAGING OF LIVER AND BILIARY TRACT Status: Acute Current Visit: Yes (4) Anemia in chronic kidney disease SNOMED Code(s): 104465122 Code(s): N18.9 - CHRONIC KIDNEY DISEASE, UNSPECIFIED; D63.1 - ANEMIA IN CHRONIC KIDNEY DISEASE Status: Acute Current Visit: Yes Qualifiers: Chronic kidney disease stage: unspecified stage Qualified Code(s): N18.9 - Chronic kidney disease, unspecified; D63.1 - Anemia in chronic kidney disease; D63.1 - Anemia in chronic kidney disease (5) Dyslipidemia SNOMED Code(s): 951366199 Code(s): E78.5 - HYPERLIPIDEMIA, UNSPECIFIED Status: Acute Current Visit : Yes (6) Ex-heavy cigarette smoker (20-39 per day) SNOMED Code(s): 986628747 Code(s): Z87.891 - PERSONAL HISTORY OF NICOTINE DEPENDENCE Status: Acute Current Visit: Yes - Problem List Review Problem List Initiated/Reviewed/Updated: Yes - Plan Plan:: discussed case with oncologist who agrees with current plan No tranfusion F/U FIT test Acute right flank pain There is a concern for acalculous cholecystitis to 2 mild thickening of the gallbladder wall and location of pain Due to patient's comorbidities he is going to need empiric antibiotic coverage PLAN Starting cefepime and metronidazole - stop cefepime Monitor for fever Panculture febrile Pain control with Tylenol, Toradol or morphine as needed Multiple myeloma Diagnosed 3 years ago Candidate for bone marrow transplant due to age Currently undergoing treatment with Aranesp (darbopoietin) every 2 weeks Is scheduled to get a bone marrow biopsy in 2 days (3) Coronary artery disease involving coronary bypass graft without angina pectoris (4) Dyslipidemia (5) Recurrent nephrolithiasis (6) Acute worsening of stage 4 chronic kidney disease (7) Acute on chronic Macrocytic anemia History of multiple myeloma and chronic anemia 3 weeks ago patient's hemoglobin was 6.7, received a platelet transfusion On 03/19 patient hemoglobin was 8.1, 7.[address] qabdomen with thickening of duodenum--> could be ulcer and could be cause of dropping of Hb PLAN - FIT stool test, since patient is on iron supplementation - F/U on results - Discussed case with residential roofer helper Dr. Prieto - recommended transfusion if Hgb below 7 (8) Hyperkalemia, resolved (9) Congestive heart failure - stable (10) Fever, resolved (11) Nausea and vomiting in adult patient, resolved (12) Type 2 diabetes mellitus, stable (13) High anion gap metabolic acidosis, resolved (14) Bleeding of unknown origin - monitoring (15) Heart failure (16) Ex-heavy cigarette smoker (20-39 per day) (17) Polypharmacy (18) Abdominal aortic aneurysm (AAA) 3.0 cm to 5.5 cm in diameter in male (19) Hematuria (20) Hernia, hiatal (21) Abnormal gall bladder diagnostic imaging <Ifrah Sol - Last Filed: 03/26/19 06:49> - Patient Data Vitals - Most Recent: Last Vital Signs Temp 36.6 C 03/26/19 04:29 Pulse 71 03/26/19 04:29 Resp 18 03/26/19 04:29 BP 128/93 H 03/26/19 04:29 Pulse Ox 93 L 03/26/19 04:29 I&O - Last 24 Hours: Intake & Output 03/25/19 03/25/19 03/26/19 14:59 22:59 06:59 Intake Total 420 1080 800 Output Total 600 700 Balance 420 480 100 Lab Results Last 24 Hours: Laboratory Results - last 24 hr 03/24/19 03/25/19 03/25/19 Range/Units 15:42 06:00 06:00 WBC (4.23-9.07) K/mm3 RBC (4.63-6.08) M/mm3 Hgb (13.7-17.5) gm/dl Hct (40.1-51.0) % MCV (79.0-92.2) fl MCH (25.7-32.2) pg MCHC (32.2-35.5) g/dl RDW Std Deviation (35.1-43.9) fL Plt Count (163-337) K/mm3 MPV (9.4-12.3) fl Neut % (Auto) (34.0-67.9) % Lymph % (Auto) (21.8-53.1) % [place] % (Auto) (5.3-12.2) % Eos % (Auto) (0.8-7.0) Baso % (Auto) (0.1-1.2) % Neut # (Auto) (1.78-5.38) K/mm3 Lymph # (Auto) (1.32-3.57) K/mm3 [place] # (Auto) (0.30-0.82) K/mm3 Eos # (Auto) (0.04-0.54) K/mm3 Baso # (Auto) (0.01-0.08) K/mm3 Manual Slide Review Abnormal smear Sodium (136-145) mEq/L Potassium (3.5-5.1) mEq/L Chloride (98-107) mEq/L Carbon Dioxide (21-32) mEq/L Anion Gap (5-15) BUN (7-18) mg/dL Creatinine (0.7-1.3) mg/dL Est Cr Clr Drug Dosing mL/min Estimated GFR (MDRD) (>60) mL/min BUN/Creatinine Ratio (14-18) Glucose (83-115) mg/dL POC Glucose (83-110) mg/dL Calcium (8.5-10.1) mg/dL Magnesium (1.8-2.4) mg/dl Stool Occult Bld Immuno Negative (Negative) Blood Type A NEGATIVE Gel Antibody Screen Negative 03/25/19 03/25/19 03/25/19 Range/Units 10:49 11:35 11:36 WBC (4.23-9.07) K/mm3 RBC (4.63-6.08) M/mm3 Hgb 7.0 L* (13.7-17.5) gm/dl Hct 21.4 L (40.1-51.0) % MCV (79.0-92.2) fl MCH (25.7-32.2) pg MCHC (32.2-35.5) g/dl RDW Std Deviation (35.1-43.9) fL Plt Count (163-337) K/mm3 MPV (9.4-12.3) fl Neut % (Auto) (34.0-67.9) % Lymph % (Auto) (21.8-53.1) % [place] % (Auto) (5.3-12.2) % Eos % (Auto) (0.8-7.0) Baso % (Auto) (0.1-1.2) % Neut # (Auto) (1.78-5.38) K/mm3 Lymph # (Auto) (1.32-3.57) K/mm3 [place] # (Auto) (0.30-0.82) K/mm3 Eos # (Auto) (0.04-0.54) K/mm3 Baso # (Auto) (0.01-0.08) K/mm3 Manual Slide Review Sodium (136-145) mEq/L Potassium (3.5-5.1) mEq/L Chloride (98-107) mEq/L Carbon Dioxide (21-32) mEq/L Anion Gap (5-15) BUN (7-18) mg/dL Creatinine (0.7-1.3) mg/dL Est Cr Clr Drug Dosing mL/min Estimated GFR (MDRD) (>60) mL/min BUN/Creatinine Ratio (14-18) Glucose (83-115) mg/dL POC Glucose 237 H 214 H (83-110) mg/dL Calcium (8.5-10.1) mg/dL Magnesium (1.8-2.4) mg/dl Stool Occult Bld Immuno (Negative) Blood Type Gel Antibody Screen 03/25/19 03/25/19 03/25/19 Range/Units 17:23 17:25 21:37 WBC (4.23-9.07) K/mm3 RBC (4.63-6.08) M/mm3 Hgb 7.0 L* (13.7-17.5) gm/dl Hct 21.8 L (40.1-51.0) % MCV (79.0-92.2) fl MCH (25.7-32.2) pg MCHC (32.2-35.5) g/dl RDW Std Deviation (35.1-43.9) fL Plt Count (163-337) K/mm3 MPV (9.4-12.3) fl Neut % (Auto) (34.0-67.9) % Lymph % (Auto) (21.8-53.1) % [place] % (Auto) (5.3-12.2) % Eos % (Auto) (0.8-7.0) Baso % (Auto) (0.1-1.2) % Neut # (Auto) (1.78-5.38) K/mm3 Lymph # (Auto) (1.32-3.57) K/mm3 [place] # (Auto) (0.30-0.82) K/mm3 Eos # (Auto) (0.04-0.54) K/mm3 Baso # (Auto) (0.01-0.08) K/mm3 Manual Slide Review Sodium (136-145) mEq/L Potassium (3.5-5.1) mEq/L Chloride (98-107) mEq/L Carbon Dioxide (21-32) mEq/L Anion Gap (5-15) BUN (7-18) mg/dL Creatinine (0.7-1.3) mg/dL Est Cr Clr Drug Dosing mL/min Estimated GFR (MDRD) (>60) mL/min BUN/Creatinine Ratio (14-18) Glucose (83-115) mg/dL POC Glucose 168 H 183 H (83-110) mg/dL Calcium (8.5-10.1) mg/dL Magnesium (1.8-2.4) mg/dl Stool Occult Bld Immuno (Negative) Blood Type Gel Antibody Screen 03/26/19 03/26/19 Range/Units 04:53 04:53 WBC 5.55 (4.23-9.07) K/mm3 RBC 1.97 L (4.63-6.08) M/mm3 Hgb 6.7 L* (13.7-17.5) gm/dl Hct 20.8 L (40.1-51.0) % MCV 105.6 H (79.0-92.2) fl MCH 34.0 H (25.7-32.2) pg MCHC 32.2 (32.2-35.5) g/dl RDW Std Deviation 68.5 H (35.1-43.9) fL Plt Count 316 (163-337) K/mm3 MPV 8.7 L (9.4-12.3) fl Neut % (Auto) 44.1 (34.0-67.9) % Lymph % (Auto) 39.8 (21.8-53.1) % [place] % (Auto) 9.2 (5.3-12.2) % Eos % (Auto) 6.3 (0.8-7.0) Baso % (Auto) 0.4 (0.1-1.2) % Neut # (Auto) 2.45 (1.78-5.38) K/mm3 Lymph # (Auto) 2.21 (1.32-3.57) K/mm3 [place] # (Auto) 0.51 (0.30-0.82) K/mm3 Eos # (Auto) 0.35 (0.04-0.54) K/mm3 Baso # (Auto) 0.02 (0.01-0.08) K/mm3 Manual Slide Review Abnormal smear Sodium 136 (136-145) mEq/L Potassium 5.2 H (3.5-5.1) mEq/L Chloride 107 (98-107) mEq/L Carbon Dioxide 17 L (21-32) mEq/L Anion Gap 17.2 H (5-15) BUN 77 H (7-18) mg/dL Creatinine 4.9 H (0.7-1.3) mg/dL Est Cr Clr Drug Dosing 12.21 mL/min Estimated GFR (MDRD) 11 (>60) mL/min BUN/Creatinine Ratio 15.7 (14-18) Glucose 114 (83-115) mg/dL POC Glucose (83-110) mg/dL Calcium 8.3 L (8.5-10.1) mg/dL Magnesium 1.9 (1.8-2.4) mg/dl Stool Occult Bld Immuno (Negative) Blood Type Gel Antibody Screen Varun Results Last 24 Hours: Microbiology 03/23/19 12:40 Urine Culture - Final Urine, Clean Catch MIXED KASSANDRA SUGGESTIVE OF CONTAMINATION. Med Orders - Current: Current Medications Acetaminophen (Tylenol) 650 mg PO Q4H PRN PRN Reason: Pain (Mild 1-3)/fever Amlodipine Besylate (Norvasc) 10 mg PO DAILY [facility] Last Admin: 03/25/19 08:10 Dose: 10 mg Calcium Acetate (Phoslo) 667 mg PO BIDMEALS [facility] Dextrose/Water (Dextrose 50% In Water) 50 ml IVPUSH ASDIRECTED PRN PRN Reason: Hypoglycemia Ferrous Sulfate (Ferrous Sulfate) 325 mg PO DAILY [facility] Last Admin: 03/25/19 08:12 Dose: 325 mg Furosemide (Lasix) 40 mg PO ASDIRECTED PRN PRN Reason: Leg Swelling Insulin Glargine (Lantus) 15 unit SUBCUT DAILY [facility] Last Admin: 03/25/19 08:28 Dose: 15 unit Insulin Human Lispro (Humalog) 0 unit SUBCUT QIDACANDBED [facility]; Protocol Last Admin: 03/25/19 21:39 Dose: 2 units Isosorbide Mononitrate (Imdur) 60 mg PO DAILY [facility] Last Admin: 03/25/19 08:12 Dose: 60 mg Metoprolol Tartrate (Lopressor) 25 mg PO BID [facility] Last Admin: 03/25/19 21:38 Dose: 25 mg Metronidazole (Flagyl) 500 mg PO Q8H [facility] Last Admin: 03/25/19 23:39 Dose: 500 mg Multivitamins (Thera) 1 each PO DAILY [facility] Last Admin: 03/25/19 08:12 Dose: 1 each Ondansetron HCl (Zofran Odt) 4 mg PO Q6H PRN PRN Reason: nausea, able to take PO Ondansetron HCl (Zofran) 4 mg IV Q6H PRN PRN Reason: Nausea/Vomiting Psyllium Husk (Metamucil Sugar Free) 1 packet PO QPM [facility] Last Admin: 03/25/19 17:52 Dose: Not Given Sodium Bicarbonate (Sodium Bicarbonate) 650 mg PO TID [facility] Last Admin: 03/25/19 21:39 Dose: 650 mg Discontinued Medications Acetaminophen (Tylenol) 650 mg PO ONETIME ONE Stop: 03/23/19 08:36 Last Admin: 03/23/19 09:07 Dose: 650 mg Fentanyl (Sublimaze) 50 mcg IVPUSH ONETIME ONE Stop: 03/23/19 05:22 Last Admin: 03/23/19 05:24 Dose: 50 mcg Furosemide (Lasix) 40 mg IVPUSH NOW ONE Stop: 03/23/19 08:41 Last Admin: 03/23/19 09:05 Dose: 40 mg Hydromorphone HCl (Dilaudid) 0.5 mg IVPUSH ONETIME ONE Stop: 03/23/19 07:59 Last Admin: 03/23/19 08:09 Dose: 0.5 mg Ceftriaxone Sodium 2 gm/ (Sodium Chloride) 100 mls @ 200 mls/hr IV Q24H [facility] Last Admin: 03/23/19 07:55 Dose: 200 mls/hr Sodium Chloride (Normal Saline) 1,000 mls @ 125 mls/hr IV ASDIRECTED [facility] Last Admin: 03/23/19 09:03 Dose: 125 mls/hr Cefepime HCl 1 gm/ Premix 50 mls @ 100 mls/hr IV Q24H [facility] Last Admin: 03/24/19 16:03 Dose: 100 mls/hr Metronidazole 500 mg/ Premix 100 mls @ 100 mls/hr IV Q8H [facility] Last Admin: 03/25/19 08:09 Dose: 100 mls/hr Insulin Glargine (Lantus) 12 unit SUBCUT ONETIME ONE Stop: 03/23/19 08:22 Last Admin: 03/23/19 09:04 Dose: 12 units Ketorolac Tromethamine (Toradol) 30 mg IV Q6H PRN PRN Reason: Pain (moderate 4-6) Metoclopramide HCl (Reglan) 7.5 mg IVPUSH ONETIME ONE Stop: 03/23/19 07:59 Last Admin: 03/23/19 08:08 Dose: 7.5 mg Metoprolol Tartrate (Lopressor) 25 mg PO BID [facility] Ondansetron HCl (Zofran) 4 mg IVPUSH ONETIME ONE Stop: 03/23/19 05:42 Last Admin: 03/23/19 05:51 Dose: 4 mg Sodium Bicarbonate (Sodium Bicarbonate) 650 mg PO TID [facility] - Problem List & Annotations (1) Acute right flank pain SNOMED Code(s): 507938473, 126496110 Code(s): R10.9 - UNSPECIFIED ABDOMINAL PAIN Status: Acute Current Visit: Yes (2) Dyslipidemia SNOMED Code(s): 546022628 Code(s): E78.5 - HYPERLIPIDEMIA, UNSPECIFIED Status: Acute Current Visit : Yes (3) Recurrent nephrolithiasis SNOMED Code(s): 50830865, 98816570 Code(s): N20.0 - CALCULUS OF KIDNEY Status: Acute Current Visit: Yes (4) Acute worsening of stage 4 chronic kidney disease SNOMED Code(s): 494179221 Code(s): N18.4 - CHRONIC KIDNEY DISEASE, STAGE 4 (SEVERE) Status: Acute Current Visit: Yes (5) Macrocytic anemia SNOMED Code(s): 03391545 Code(s): D53.9 - NUTRITIONAL ANEMIA, UNSPECIFIED Status: Acute Current Visit: Yes (6) Hyperkalemia SNOMED Code(s): 34083891 Code(s): E87.5 - HYPERKALEMIA Status: Acute Current Visit: Yes (7) Congestive heart failure SNOMED Code(s): 04129610 Code(s): I50.9 - HEART FAILURE, UNSPECIFIED Status: Acute Current Visit: Yes Qualifiers: Heart failure type: combined systolic and diastolic Heart failure chronicity: chronic Qualified Code(s): I50.42 - Chronic combined systolic ( congestive) and diastolic (congestive) heart failure (8) Fever SNOMED Code(s): 641734488 Code(s): R50.9 - FEVER, UNSPECIFIED Status: Acute Current Visit: Yes Qualifiers: Encounter type: initial encounter (9) Nausea and vomiting in adult patient SNOMED Code(s): 12014148 Code(s): R11.2 - NAUSEA WITH VOMITING, UNSPECIFIED Status: Acute Current Visit: Yes (10) Type 2 diabetes mellitus SNOMED Code(s): 86573393 Code(s): E11.9 - TYPE 2 DIABETES MELLITUS WITHOUT COMPLICATIONS Status: Acute Current Visit: Yes Qualifiers: Diabetes mellitus termite control technician insulin use: with intermediate use Diabetes mellitus complication status: with kidney complications Diabetes mellitus complication detail: with chronic kidney disease Chronic kidney disease stage : stage 5, not on chronic dialysis Qualified Code(s): E11.22 - Type 2 diabetes mellitus with diabetic chronic kidney disease; N18.5 - Chronic kidney disease, stage 5; Z79.4 - rat exterminator (current) use of insulin (11) High anion gap metabolic acidosis SNOMED Code(s): 02584807 Code(s): E87.2 - ACIDOSIS Status: Acute Current Visit: Yes (12) Bleeding of unknown origin SNOMED Code(s): 972978753 Code(s): R58 - HEMORRHAGE, NOT ELSEWHERE CLASSIFIED Status: Acute Current Visit: Yes (13) Heart failure SNOMED Code(s): 11229607 Code(s): I50.9 - HEART FAILURE, UNSPECIFIED Status: Acute Current Visit: Yes (14) Ex-heavy cigarette smoker (20-39 per day) SNOMED Code(s): 004340447 Code(s): Z87.891 - PERSONAL HISTORY OF NICOTINE DEPENDENCE Status: Acute Current Visit: Yes (15) Polypharmacy SNOMED Code(s): 066932371 Code(s): Z79.899 - OTHER HOUSECALLS NURSE (CURRENT) DRUG THERAPY Status: Acute Current Visit: Yes (16) Abdominal aortic aneurysm (AAA) 3.0 cm to 5.5 cm in diameter in male SNOMED Code(s): 819033467 Code(s): I71.4 - ABDOMINAL AORTIC ANEURYSM, WITHOUT RUPTURE Status: Acute Current Visit: Yes (17) Hematuria SNOMED Code(s): 68421511 Code(s): R31.9 - HEMATURIA, UNSPECIFIED Status: Acute Current Visit: Yes (18) Hernia, hiatal SNOMED Code(s): 47899229 Code(s): K44.9 - DIAPHRAGMATIC HERNIA WITHOUT OBSTRUCTION OR GANGRENE Status: Acute Current Visit: Yes (19) Abnormal gall bladder diagnostic imaging SNOMED Code(s): 934877028, 170586124 Code(s): R93.2 - ABNORMAL FINDINGS ON DX IMAGING OF LIVER AND BILIARY TRACT Status: Acute Current Visit: Yes (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 SNOMED Code(s): 425751536 Code(s): C90.00 - MULTIPLE MYELOMA NOT HAVING ACHIEVED REMISSION Status: Acute Current Visit: Yes (21) Hyperphosphatemia SNOMED Code(s): 61204795 Code(s): E83.39 - OTHER DISORDERS OF PHOSPHORUS METABOLISM Status: Acute Current Visit: Yes - My Orders Last 24 Hours: My Active Orders 03/25/19 09:00 Ferrous Sulfate 325 mg PO DAILY Insulin Glarg,Human.Rec.Analog [LantUS] 15 unit SUBCUT DAILY Isosorbide Mononitrate [Imdur] 60 mg PO DAILY Multivitamins,Therapeutic [Thera] 1 each PO DAILY amLODIPine [Norvasc] 10 mg PO DAILY 03/25/19 16:00 metroNIDAZOLE [Flagyl] 500 mg PO Q8H 03/25/19 18:00 Psyllium Husk/Aspartame [Metamucil Sugar Free] 1 packet PO QPM 03/26/19 07:00 Calcium Acetate [PhosLo] 667 mg PO BIDMEALS - Plan Plan:: Patient evaluated by me at bedside His hemoglobin continues to drop Immune no histochemistry occult blood testing is pending Case has been discussed with patient's oncologist and we decided the transfusion is not appropriate at this time If hemoglobin continues to drop will reconsult Dr. Prieto to see if he ate greaseless transfusing patient prior to discharge As for his diabetes patient's repeat A1c has been reported at 6.2, this is normal however unreliable due to patient's chronic anemic status Kidney function has remained stable Patient started on phosphate binders We will continue to monitor BMP with magnesium and phosphate on a daily basis for now Patient denies any further abdominal pain We have transitioned patient to oral antibiotics in anticipation to discharge Light chains have been ordered on admission will recommend PCP to follow up on levels as well as Dr. Prieto The assessment and plan has been discussed in detail with Shashank I agree with the assessment and plan as described above
[2019-03-25] MEDS: metroNIDAZOLE 500 MG Tab PO SCH ×2 (15:12→23:39)
[2019-03-25] MEDS: Psyllium Husk Powder Sugar Free 3.4 GM Packet PO SCH (17:52)
[2019-03-26] MEDS: Insulin Lispro 100 Units/ML 3 ML Vial SUBCUT SCH ×4 (08:42→21:04)
[2019-03-26] MEDS: Ferrous Sulfate 325 MG Tab PO SCH (08:43)
[2019-03-26] MEDS: Isosorbide Mononitrate 60 MG Tab.ER PO SCH (08:43)
[2019-03-26] MEDS: metroNIDAZOLE 500 MG Tab PO SCH ×2 (08:43→15:58)
[2019-03-26] MEDS: amLODIPine 10 MG Tab PO SCH ×2 (08:44→13:47)
[2019-03-26] MEDS: Multivitamins,Therapeutic Tab PO SCH (08:47)
[2019-03-26] MEDS: Calcium Acetate 667 MG Cap PO SCH ×2 (08:47→16:02)
[2019-03-26] MEDS: Insulin Glarg,Human.Rec.Analog 100 UNIT/ML ML SUBCUT SCH (08:48)
[2019-03-26] MEDS: Metoprolol Tartrate 50 MG Tab**OWN MED PO SCH ×2 (08:54→22:53)
[2019-03-26] MEDS: SODIUM BICARBONATE 650 MG PO SCH ×3 (08:55→22:54)
--- NOTE | 2019-03-26 11:34 | PCM.PN ---
- General Info Date of Service: 03/26/19 Admission Dx/Problem (Free Text): Admission Diagnosis/Problem Admission Diagnosis/Problem Acute febrile illness Functional Status: Reports: Pain Controlled, Tolerating Diet, Ambulating, Urinating. Denies: New Symptoms - Review of Systems General: Reports: No Symptoms, Weakness (Chronic and at baseline ). Denies: Fever, Fatigue, Malaise, Chills HEENT: Reports: No Symptoms. Denies: Headaches, Sore Throat Pulmonary: Reports: No Symptoms. Denies: Shortness of Breath, Pleuritic Chest Pain, Cough, Sputum, Wheezing Cardiovascular: Reports: No Symptoms. Denies: Chest Pain, Palpitations, Edema Gastrointestinal: Reports: No Symptoms. Denies: Abdominal Pain, Constipation, Diarrhea, Nausea, Vomiting Genitourinary: Reports: No Symptoms. Denies: Pain Musculoskeletal: Reports: No Symptoms Skin: Reports: No Symptoms. Denies: Cyanosis Neurological: Reports: No Symptoms. Denies: Confusion Psychiatric: Reports: No Symptoms - Patient Data Vitals - Most Recent: Last Vital Signs Temp 97.9 F 03/26/19 04:29 Pulse 77 03/26/19 08:54 Resp 18 03/26/19 04:29 BP 132/64 03/26/19 08:54 Pulse Ox 93 L 03/26/19 04:29 Weight - Most Recent: 197 lb 12.8 oz I&O - Last 24 Hours: Intake & Output 03/25/19 03/26/19 03/26/19 22:59 06:59 14:59 Intake Total 1080 800 340 Output Total 600 700 Balance 480 100 340 Lab Results Last 24 Hours: Laboratory Results - last 24 hr 03/24/19 03/25/19 03/25/19 Range/Units 15:42 06:00 11:35 WBC (4.23-9.07) K/mm3 RBC (4.63-6.08) M/mm3 Hgb (13.7-17.5) gm/dl Hct (40.1-51.0) % MCV (79.0-92.2) fl MCH (25.7-32.2) pg MCHC (32.2-35.5) g/dl RDW Std Deviation (35.1-43.9) fL Plt Count (163-337) K/mm3 MPV (9.4-12.3) fl Neut % (Auto) (34.0-67.9) % Lymph % (Auto) (21.8-53.1) % Erie % (Auto) (5.3-12.2) % Eos % (Auto) (0.8-7.0) Baso % (Auto) (0.1-1.2) % Neut # (Auto) (1.78-5.38) K/mm3 Lymph # (Auto) (1.32-3.57) K/mm3 E[place] # (Auto) (0.30-0.82) K/mm3 Eos # (Auto) (0.04-0.54) K/mm3 Baso # (Auto) (0.01-0.08) K/mm3 Manual Slide Review Sodium (136-145) mEq/L Potassium (3.5-5.1) mEq/L Chloride (98-107) mEq/L Carbon Dioxide (21-32) mEq/L Anion Gap (5-15) BUN (7-18) mg/dL Creatinine (0.7-1.3) mg/dL Est Cr Clr Drug Dosing mL/min Estimated GFR (MDRD) (>60) mL/min BUN/Creatinine Ratio (14-18) Glucose (83-115) mg/dL POC Glucose 214 H (83-110) mg/dL Calcium (8.5-10.1) mg/dL Magnesium (1.8-2.4) mg/dl Stool Occult Bld Immuno Negative (Negative) Crossmatch See Detail 03/25/19 03/25/19 03/25/19 Range/Units 11:36 17:23 17:25 WBC (4.23-9.07) K/mm3 RBC (4.63-6.08) M/mm3 Hgb 7.0 L* 7.0 L* (13.7-17.5) gm/dl Hct 21.4 L 21.8 L (40.1-51.0) % MCV (79.0-92.2) fl MCH (25.7-32.2) pg MCHC (32.2-35.5) g/dl RDW Std Deviation (35.1-43.9) fL Plt Count (163-337) K/mm3 MPV (9.4-12.3) fl Neut % (Auto) (34.0-67.9) % Lymph % (Auto) (21.8-53.1) % Erie % (Auto) (5.3-12.2) % Eos % (Auto) (0.8-7.0) Baso % (Auto) (0.1-1.2) % Neut # (Auto) (1.78-5.38) K/mm3 Lymph # (Auto) (1.32-3.57) K/mm3 Erie # (Auto) (0.30-0.82) K/mm3 Eos # (Auto) (0.04-0.54) K/mm3 Baso # (Auto) (0.01-0.08) K/mm3 Manual Slide Review Sodium (136-145) mEq/L Potassium (3.5-5.1) mEq/L Chloride (98-107) mEq/L Carbon Dioxide (21-32) mEq/L Anion Gap (5-15) BUN (7-18) mg/dL Creatinine (0.7-1.3) mg/dL Est Cr Clr Drug Dosing mL/min Estimated GFR (MDRD) (>60) mL/min BUN/Creatinine Ratio (14-18) Glucose (83-115) mg/dL POC Glucose 168 H (83-110) mg/dL Calcium (8.5-10.1) mg/dL Magnesium (1.8-2.4) mg/dl Stool Occult Bld Immuno (Negative) Crossmatch 03/25/19 03/26/19 03/26/19 Range/Units 21:37 04:53 04:53 WBC 5.55 (4.23-9.07) K/mm3 RBC 1.97 L (4.63-6.08) M/mm3 Hgb 6.7 L* (13.7-17.5) gm/dl Hct 20.8 L (40.1-51.0) % MCV 105.6 H (79.0-92.2) fl MCH 34.0 H (25.7-32.2) pg MCHC 32.2 (32.2-35.5) g/dl RDW Std Deviation 68.5 H (35.1-43.9) fL Plt Count 316 (163-337) K/mm3 MPV 8.7 L (9.4-12.3) fl Neut % (Auto) 44.1 (34.0-67.9) % Lymph % (Auto) 39.8 (21.8-53.1) % Erie % (Auto) 9.2 (5.3-12.2) % Eos % (Auto) 6.3 (0.8-7.0) Baso % (Auto) 0.4 (0.1-1.2) % Neut # (Auto) 2.45 (1.78-5.38) K/mm3 Lymph # (Auto) 2.21 (1.32-3.57) K/mm3 Erie # (Auto) 0.51 (0.30-0.82) K/mm3 Eos # (Auto) 0.35 (0.04-0.54) K/mm3 Baso # (Auto) 0.02 (0.01-0.08) K/mm3 Manual Slide Review Abnormal smear Sodium 136 (136-145) mEq/L Potassium 5.2 H (3.5-5.1) mEq/L Chloride 107 (98-107) mEq/L Carbon Dioxide 17 L (21-32) mEq/L Anion Gap 17.2 H (5-15) BUN 77 H (7-18) mg/dL Creatinine 4.9 H (0.7-1.3) mg/dL Est Cr Clr Drug Dosing 12.21 mL/min Estimated GFR (MDRD) 11 (>60) mL/min BUN/Creatinine Ratio 15.7 (14-18) Glucose 114 (83-115) mg/dL POC Glucose 183 H (83-110) mg/dL Calcium 8.3 L (8.5-10.1) mg/dL Magnesium 1.9 (1.8-2.4) mg/dl Stool Occult Bld Immuno (Negative) Crossmatch 03/26/19 03/26/19 Range/Units 06:47 11:10 WBC (4.23-9.07) K/mm3 RBC (4.63-6.08) M/mm3 Hgb (13.7-17.5) gm/dl Hct (40.1-51.0) % MCV (79.0-92.2) fl MCH (25.7-32.2) pg MCHC (32.2-35.5) g/dl RDW Std Deviation (35.1-43.9) fL Plt Count (163-337) K/mm3 MPV (9.4-12.3) fl Neut % (Auto) (34.0-67.9) % Lymph % (Auto) (21.8-53.1) % E[place] % (Auto) (5.3-12.2) % Eos % (Auto) (0.8-7.0) Baso % (Auto) (0.1-1.2) % Neut # (Auto) (1.78-5.38) K/mm3 Lymph # (Auto) (1.32-3.57) K/mm3 [place] # (Auto) (0.30-0.82) K/mm3 Eos # (Auto) (0.04-0.54) K/mm3 Baso # (Auto) (0.01-0.08) K/mm3 Manual Slide Review Sodium (136-145) mEq/L Potassium (3.5-5.1) mEq/L Chloride (98-107) mEq/L Carbon Dioxide (21-32) mEq/L Anion Gap (5-15) BUN (7-18) mg/dL Creatinine (0.7-1.3) mg/dL Est Cr Clr Drug Dosing mL/min Estimated GFR (MDRD) (>60) mL/min BUN/Creatinine Ratio (14-18) Glucose (83-115) mg/dL POC Glucose 102 201 H (83-110) mg/dL Calcium (8.5-10.1) mg/dL Magnesium (1.8-2.4) mg/dl Stool Occult Bld Immuno (Negative) Crossmatch Varun Results Last 24 Hours: Microbiology 03/23/19 12:40 Urine Culture - Final Urine, Clean Catch MIXED KASSANDRA SUGGESTIVE OF CONTAMINATION. Med Orders - Current: Current Medications Acetaminophen (Tylenol) 650 mg PO Q4H PRN PRN Reason: Pain (Mild 1-3)/fever Amlodipine Besylate (Norvasc) 10 mg PO DAILY [facility] Last Admin: 03/26/19 08:44 Dose: 10 mg Calcium Acetate (Phoslo) 667 mg PO BIDMEALS [facility] Last Admin: 03/26/19 08:47 Dose: 667 mg Dextrose/Water (Dextrose 50% In Water) 50 ml IVPUSH ASDIRECTED PRN PRN Reason: Hypoglycemia Ferrous Sulfate (Ferrous Sulfate) 325 mg PO DAILY [facility] Last Admin: 03/26/19 08:43 Dose: 325 mg Furosemide (Lasix) 40 mg PO ASDIRECTED PRN PRN Reason: Leg Swelling Insulin Glargine (Lantus) 15 unit SUBCUT DAILY [facility] Last Admin: 03/26/19 08:48 Dose: 15 unit Insulin Human Lispro (Humalog) 0 unit SUBCUT QIDACANDBED [facility]; Protocol Last Admin: 03/26/19 08:42 Dose: Not Given Isosorbide Mononitrate (Imdur) 60 mg PO DAILY [facility] Last Admin: 03/26/19 08:43 Dose: 60 mg Metoprolol Tartrate (Lopressor) 25 mg PO BID [facility] Last Admin: 03/26/19 08:54 Dose: 25 mg Metronidazole (Flagyl) 500 mg PO Q8H [facility] Last Admin: 03/26/19 08:43 Dose: 500 mg Multivitamins (Thera) 1 each PO DAILY [facility] Last Admin: 03/26/19 08:47 Dose: 1 each Ondansetron HCl (Zofran Odt) 4 mg PO Q6H PRN PRN Reason: nausea, able to take PO Ondansetron HCl (Zofran) 4 mg IV Q6H PRN PRN Reason: Nausea/Vomiting Psyllium Husk (Metamucil Sugar Free) 1 packet PO QPM [facility] Last Admin: 03/25/19 17:52 Dose: Not Given Sodium Bicarbonate (Sodium Bicarbonate) 650 mg PO TID [facility] Last Admin: 03/26/19 08:55 Dose: 650 mg Discontinued Medications Acetaminophen (Tylenol) 650 mg PO ONETIME ONE Stop: 03/23/19 08:36 Last Admin: 03/23/19 09:07 Dose: 650 mg Fentanyl (Sublimaze) 50 mcg IVPUSH ONETIME ONE Stop: 03/23/19 05:22 Last Admin: 03/23/19 05:24 Dose: 50 mcg Furosemide (Lasix) 40 mg IVPUSH NOW ONE Stop: 03/23/19 08:41 Last Admin: 03/23/19 09:05 Dose: 40 mg Hydromorphone HCl (Dilaudid) 0.5 mg IVPUSH ONETIME ONE Stop: 03/23/19 07:59 Last Admin: 03/23/19 08:09 Dose: 0.5 mg Ceftriaxone Sodium 2 gm/ (Sodium Chloride) 100 mls @ 200 mls/hr IV Q24H [facility] Last Admin: 03/23/19 07:55 Dose: 200 mls/hr Sodium Chloride (Normal Saline) 1,000 mls @ 125 mls/hr IV ASDIRECTED [facility] Last Admin: 03/23/19 09:03 Dose: 125 mls/hr Cefepime HCl 1 gm/ Premix 50 mls @ 100 mls/hr IV Q24H [facility] Last Admin: 03/24/19 16:03 Dose: 100 mls/hr Metronidazole 500 mg/ Premix 100 mls @ 100 mls/hr IV Q8H [facility] Last Admin: 03/25/19 08:09 Dose: 100 mls/hr Insulin Glargine (Lantus) 12 unit SUBCUT ONETIME ONE Stop: 03/23/19 08:22 Last Admin: 03/23/19 09:04 Dose: 12 units Ketorolac Tromethamine (Toradol) 30 mg IV Q6H PRN PRN Reason: Pain (moderate 4-6) Metoclopramide HCl (Reglan) 7.5 mg IVPUSH ONETIME ONE Stop: 03/23/19 07:59 Last Admin: 03/23/19 08:08 Dose: 7.5 mg Metoprolol Tartrate (Lopressor) 25 mg PO BID [facility] Ondansetron HCl (Zofran) 4 mg IVPUSH ONETIME ONE Stop: 03/23/19 05:42 Last Admin: 03/23/19 05:51 Dose: 4 mg Sodium Bicarbonate (Sodium Bicarbonate) 650 mg PO TID [facility] - Exam Quality Assessment: DVT Prophylaxis General: Alert, Oriented, Cooperative, No Acute Distress HEENT: Pupils Equal, Pupils Reactive, EOMI, Mucous Membr. Moist/Nettie Neck: Supple, Trachea Midline, No JVD Lungs: Clear to Auscultation, Normal Respiratory Effort Cardiovascular: Regular Rate, Regular Rhythm GI/Abdominal Exam: Normal Bowel Sounds, Soft, Non-Tender, No Organomegaly, No Distention, No Mass, Pelvis Stable (Male) Exam: Deferred Back Exam: Normal Inspection, Full Range of Motion Extremities: Normal Inspection, Normal Range of Motion, Non-Tender, No Pedal Edema, Normal Capillary Refill Peripheral Pulses: 2+: Radial (L), Radial (R), Dorsalis Pedis (L), Dorsalis Pedis (R) Skin: Warm, Dry, Intact Neurological: No New Focal Deficit Psy/Mental Status: Alert, Normal Affect, Normal Mood - Problem List & Annotations (1) Abdominal aortic aneurysm (AAA) 3.0 cm to 5.5 cm in diameter in male SNOMED Code(s): 289463506 Code(s): I71.4 - ABDOMINAL AORTIC ANEURYSM, WITHOUT RUPTURE Status: Acute Current Visit: Yes (2) Abdominal pain SNOMED Code(s): 86510871 Code(s): R10.9 - UNSPECIFIED ABDOMINAL PAIN Status: Acute Current Visit: Yes Qualifiers: Abdominal location: right upper quadrant Qualified Code(s): R10.11 - Right upper quadrant pain (3) Abnormal gall bladder diagnostic imaging SNOMED Code(s): 949469055, 278555132 Code(s): R93.2 - ABNORMAL FINDINGS ON DX IMAGING OF LIVER AND BILIARY TRACT Status: Acute Current Visit: Yes (4) Anemia in chronic kidney disease SNOMED Code(s): 254496761 Code(s): N18.9 - CHRONIC KIDNEY DISEASE, UNSPECIFIED; D63.1 - ANEMIA IN CHRONIC KIDNEY DISEASE Status: Acute Current Visit: Yes Qualifiers: Chronic kidney disease stage: unspecified stage Qualified Code(s): N18.9 - Chronic kidney disease, unspecified; D63.1 - Anemia in chronic kidney disease; D63.1 - Anemia in chronic kidney disease (5) Dyslipidemia SNOMED Code(s): 846873525 Code(s): E78.5 - HYPERLIPIDEMIA, UNSPECIFIED Status: Acute Current Visit : Yes (6) Ex-heavy cigarette smoker (20-39 per day) SNOMED Code(s): 686256943 Code(s): Z87.891 - PERSONAL HISTORY OF NICOTINE DEPENDENCE Status: Acute Current Visit: Yes (7) Rrtlu-fo-krhpfst kidney injury SNOMED Code(s): 522985076 Code(s): N17.9 - ACUTE KIDNEY FAILURE, UNSPECIFIED; N18.9 - CHRONIC KIDNEY DISEASE, UNSPECIFIED Status: Acute Priority: High Current Visit: Yes Qualifiers: Acute renal failure type: unspecified Chronic kidney disease stage: stage 5 , not on chronic dialysis Qualified Code(s): N17.9 - Acute kidney failure, unspecified; N18.5 - Chronic kidney disease, stage 5 (8) Multiple myeloma SNOMED Code(s): 567429732 Code(s): C90.00 - MULTIPLE MYELOMA NOT HAVING ACHIEVED REMISSION Status: Acute Priority: High Current Visit: Yes Qualifiers: Multiple myeloma remission status: unspecified Qualified Code(s): C90.00 - Multiple myeloma not having achieved remission - Problem List Review Problem List Initiated/Reviewed/Updated: Yes - My Orders Last 24 Hours: My Active Orders 03/26/19 11:15 UA W/MICROSCOPIC [URIN] Stat 03/26/19 11:16 CREATININE,URINE RAND [URCHEM] Stat SODIUM,URINE RANDOM [URCHEM] Stat 03/26/19 11:20 RED BLOOD CELLS LP [BBK] Routine Transfuse Red Blood Cells [COMM] Routine 03/27/19 05:11 BASIC METABOLIC PANEL,BMP [CHEM] AM CBC WITH AUTO DIFF [HEME] AM MAGNESIUM [CHEM] AM 03/28/19 05:11 BASIC METABOLIC PANEL,BMP [CHEM] AM CBC WITH AUTO DIFF [HEME] AM MAGNESIUM [CHEM] AM 03/29/19 05:11 BASIC METABOLIC PANEL,BMP [CHEM] AM CBC WITH AUTO DIFF [HEME] AM MAGNESIUM [CHEM] AM - Plan Plan:: Acute right flank pain, Resolved There is a concern for acalculous cholecystitis to 2 mild thickening of the gallbladder wall and location of pain Due to patient's comorbidities he is going to need empiric antibiotic coverage PLAN Starting cefepime and metronidazole - stop cefepime and continue Flagyl for 5 days total -Switch from IV to PO Flagyl Monitor for fever Panculture febrile Pain control with Tylenol, Toradol or morphine as needed -CT scan of abdomen: -Inflammatory change around duodenum with wall thickening and outpouching. Could represent one ulcer. Consider endoscopy. -Cyst adjacent to the pancreas and duodenum. -Haziness to neck of gallbladder. -No renal dilation or eat renal stone. -Stable bilobed abdominal aortic aneurysm. -Abdominal US: -Slightly thickened gallbladder wall with no gallstones. Minimal fluid seen next to gallbladder. Suspect findings are likely due to duodenum and less due to a calculus cholecystitis. -Incidental renal cyst -Nothing acute. Multiple myeloma Diagnosed 3 years ago Not Candidate for bone marrow transplant due to age Currently undergoing treatment with Aranesp (darbopoietin) every 2 weeks Is scheduled to get a bone marrow biopsy in [address] Villagran Acute on chronic Macrocytic anemia History of multiple myeloma and chronic anemia 3 weeks ago patient's hemoglobin was 6.7, received a platelet transfusion On 03/19 patient hemoglobin was 8.1, 7.6 on admission ->7.9-->7.2-->7.2-->7.0--> 6.7 CT qabdomen with thickening of duodenum--> could be ulcer and could be cause of dropping of Hb PLAN - FIT stool test, since patient is on iron supplementation -> negative - Discussed case with orthopedic podiatrist Was - recommended transfusion if Hgb below 7 - Likely 2/2 multiple myeloma as above - Continue to monitor - Transfuse one unit on 03/26/19 Hyperphosphatemia -Phosphate 5.3 PLAN -Phosphate binding agents started -Continue to monitor Hyperkalemia, resolved PLAN - Continue to monitor Congestive heart failure - stable - BNP 4027 in EE - No reparatory distress, edema PLAN - Continue to monitor Abdominal aortic aneurysm (AAA) 3.0 cm to 5.5 cm in diameter in male -Stable PLAN -PCP to follow up Acute on chronic renal failure -Reports history of CKD stage IV -BUN 71-->72-->77 -Creatinine 3.8-->4.6-->4.9 -GFR 15-->12-->11 PLAN -Urine random creatinine and sodium -Has seen nephrology - obtain old records -Monitor I&Os Prophylaxis: DVT - SCDs. Discharge plan: 1-2 more days, upgrade from observation to inpatient status.
[2019-03-26] MEDS ORDERED: Nitroglycerin 0.4 MG Tab.SL ONE (11:57)
[2019-03-26] MEDS ORDERED: Sodium Chloride 0.9% 250 ML IV SCH (15:30)
--- NOTE | 2019-03-26 15:57 | PCM.SN ---
- Free Text/Narrative Note: Called for difficult IV start. Multiple previous attempts unsuccessful. 20 Gauge IV inserted in the left forearm, good blood return, flushes well with 20 ml of 0.9 NS, secured with a transparent dressing. Po tolerated the procedure well with no further questions. Nursing staff notified of successful IV placement.
[2019-03-26] MEDS: Psyllium Husk Powder Sugar Free 3.4 GM Packet PO SCH (17:12)
[2019-03-26] MEDS: Metoprolol Tartrate 50 MG Tab PO SCH (21:05)
[2019-03-26] MEDS: Sodium Bicarbonate 650 MG Tab PO SCH (21:06)
[2019-03-27] MEDS: metroNIDAZOLE 500 MG Tab PO SCH ×2 (00:23→08:26)
[2019-03-27] MEDS: Calcium Acetate 667 MG Cap PO SCH ×3 (06:29→17:34)
[2019-03-27] MEDS: Insulin Lispro 100 Units/ML 3 ML Vial SUBCUT SCH ×5 (06:30→21:05)
[2019-03-27] MEDS: Multivitamins,Therapeutic Tab PO SCH (08:22)
[2019-03-27] MEDS: Sodium Bicarbonate 650 MG Tab PO SCH ×3 (08:22→20:45)
[2019-03-27] MEDS: Isosorbide Mononitrate 60 MG Tab.ER PO SCH (08:24)
[2019-03-27] MEDS: amLODIPine 10 MG Tab PO SCH (08:25)
[2019-03-27] MEDS: Ferrous Sulfate 324 MG Tab.EC PO SCH (08:26)
[2019-03-27] MEDS: Metoprolol Tartrate 50 MG Tab PO SCH (08:27)
[2019-03-27] MEDS: Insulin Glarg,Human.Rec.Analog 100 UNIT/ML ML SUBCUT SCH (08:28)
[2019-03-27] MEDS ORDERED: Sodium Chloride 0.9% 500 ML IV ONE (09:58)
[2019-03-27] MEDS: Furosemide 40 MG Tab PO SCH (10:57)
[2019-03-27] MEDS: Sodium Polystyrene Sulfonate 15 GM/60 ML Susp 60 ML Bot PO SCH (10:58)
--- NOTE | 2019-03-27 13:55 | PCM.SN ---
- Free Text/Narrative Note: Anesthesia Note: Start: 1317 Stop: 1325 Iv start times one attempt. 20 gauge to Right forearm, flushed with 10ml's normal saline.
--- NOTE | 2019-03-27 14:53 | PCM.PN ---
- General Info Date of Service: 03/27/19 Admission Dx/Problem (Free Text): Admission Diagnosis/Problem Admission Diagnosis/Problem Acute febrile illness Functional Status: Reports: Pain Controlled, Tolerating Diet, Ambulating, Urinating. Denies: New Symptoms - Review of Systems General: Reports: Weakness (chronic ). Denies: Fever, Fatigue, Malaise HEENT: Reports: No Symptoms. Denies: Headaches, Sore Throat Pulmonary: Reports: No Symptoms. Denies: Shortness of Breath, Cough, Sputum, Wheezing Cardiovascular: Reports: No Symptoms. Denies: Chest Pain, Edema Gastrointestinal: Reports: No Symptoms. Denies: Abdominal Pain, Constipation, Diarrhea, Nausea, Vomiting Genitourinary: Reports: No Symptoms. Denies: Pain Musculoskeletal: Reports: No Symptoms Skin: Reports: No Symptoms. Denies: Cyanosis Neurological: Reports: No Symptoms. Denies: Confusion Psychiatric: Reports: No Symptoms - Patient Data Vitals - Most Recent: Last Vital Signs Temp 98.1 F 03/27/19 11:43 Pulse 70 03/27/19 11:43 Resp 16 03/27/19 11:43 BP 114/95 H 03/27/19 11:43 Pulse Ox 97 03/27/19 11:43 Weight - Most Recent: 199 lb 11.2 oz I&O - Last 24 Hours: Intake & Output 03/26/19 03/27/19 03/27/19 22:59 06:59 14:59 Intake Total 1400 800 300 Balance 1400 800 300 Lab Results Last 24 Hours: Laboratory Results - last 24 hr 03/25/19 03/26/19 03/26/19 Range/Units 06:00 16:44 20:50 WBC (4.23-9.07) K/mm3 RBC (4.63-6.08) M/mm3 Hgb (13.7-17.5) gm/dl Hct (40.1-51.0) % MCV (79.0-92.2) fl MCH (25.7-32.2) pg MCHC (32.2-35.5) g/dl RDW Std Deviation (35.1-43.9) fL Plt Count (163-337) K/mm3 MPV (9.4-12.3) fl Neut % (Auto) (34.0-67.9) % Lymph % (Auto) (21.8-53.1) % [place] % (Auto) (5.3-12.2) % Eos % (Auto) (0.8-7.0) Baso % (Auto) (0.1-1.2) % Neut # (Auto) (1.78-5.38) K/mm3 Lymph # (Auto) (1.32-3.57) K/mm3 [place] # (Auto) (0.30-0.82) K/mm3 Eos # (Auto) (0.04-0.54) K/mm3 Baso # (Auto) (0.01-0.08) K/mm3 Sodium (136-145) mEq/L Potassium (3.5-5.1) mEq/L Chloride (98-107) mEq/L Carbon Dioxide (21-32) mEq/L Anion Gap (5-15) BUN (7-18) mg/dL Creatinine (0.7-1.3) mg/dL Est Cr Clr Drug Dosing mL/min Estimated GFR (MDRD) (>60) mL/min BUN/Creatinine Ratio (14-18) Glucose (83-115) mg/dL POC Glucose 129 H 236 H (83-110) mg/dL Calcium (8.5-10.1) mg/dL Phosphorus (2.6-4.7) mg/dL Magnesium (1.8-2.4) mg/dl Blood Type A NEGATIVE Gel Antibody Screen Negative Crossmatch See Detail 03/27/19 03/27/19 03/27/19 Range/Units 05:17 05:17 06:28 WBC 5.87 (4.23-9.07) K/mm3 RBC 2.42 L (4.63-6.08) M/mm3 Hgb 8.2 L D (13.7-17.5) gm/dl Hct 24.8 L (40.1-51.0) % MCV 102.5 H D (79.0-92.2) fl MCH 33.9 H (25.7-32.2) pg MCHC 33.1 (32.2-35.5) g/dl RDW Std Deviation 68.3 H (35.1-43.9) fL Plt Count 331 (163-337) K/mm3 MPV 8.9 L (9.4-12.3) fl Neut % (Auto) 43.9 (34.0-67.9) % Lymph % (Auto) 39.9 (21.8-53.1) % [place] % (Auto) 10.2 (5.3-12.2) % Eos % (Auto) 5.1 (0.8-7.0) Baso % (Auto) 0.7 (0.1-1.2) % Neut # (Auto) 2.58 (1.78-5.38) K/mm3 Lymph # (Auto) 2.34 (1.32-3.57) K/mm3 [place] # (Auto) 0.60 (0.30-0.82) K/mm3 Eos # (Auto) 0.30 (0.04-0.54) K/mm3 Baso # (Auto) 0.04 (0.01-0.08) K/mm3 Sodium 136 (136-145) mEq/L Potassium 5.6 H (3.5-5.1) mEq/L Chloride 106 (98-107) mEq/L Carbon Dioxide 17 L (21-32) mEq/L Anion Gap 18.6 H (5-15) BUN 80 H (7-18) mg/dL Creatinine 5.1 H (0.7-1.3) mg/dL Est Cr Clr Drug Dosing 11.73 mL/min Estimated GFR (MDRD) 11 (>60) mL/min BUN/Creatinine Ratio 15.7 (14-18) Glucose 96 (83-115) mg/dL POC Glucose 97 (83-110) mg/dL Calcium 8.6 (8.5-10.1) mg/dL Phosphorus 5.9 H (2.6-4.7) mg/dL Magnesium 1.9 (1.8-2.4) mg/dl Blood Type Gel Antibody Screen Crossmatch 03/27/19 03/27/19 Range/Units 11:45 13:55 WBC (4.23-9.07) K/mm3 RBC (4.63-6.08) M/mm3 Hgb (13.7-17.5) gm/dl Hct (40.1-51.0) % MCV (79.0-92.2) fl MCH (25.7-32.2) pg MCHC (32.2-35.5) g/dl RDW Std Deviation (35.1-43.9) fL Plt Count (163-337) K/mm3 MPV (9.4-12.3) fl Neut % (Auto) (34.0-67.9) % Lymph % (Auto) (21.8-53.1) % [place] % (Auto) (5.3-12.2) % Eos % (Auto) (0.8-7.0) Baso % (Auto) (0.1-1.2) % Neut # (Auto) (1.78-5.38) K/mm3 Lymph # (Auto) (1.32-3.57) K/mm3 [place] # (Auto) (0.30-0.82) K/mm3 Eos # (Auto) (0.04-0.54) K/mm3 Baso # (Auto) (0.01-0.08) K/mm3 Sodium 137 (136-145) mEq/L Potassium 5.2 H (3.5-5.1) mEq/L Chloride 105 (98-107) mEq/L Carbon Dioxide 17 L (21-32) mEq/L Anion Gap 20.2 H (5-15) BUN 81 H (7-18) mg/dL Creatinine 4.9 H (0.7-1.3) mg/dL Est Cr Clr Drug Dosing 12.21 mL/min Estimated GFR (MDRD) 11 (>60) mL/min BUN/Creatinine Ratio 16.5 (14-18) Glucose 168 H (83-115) mg/dL POC Glucose 233 H (83-110) mg/dL Calcium 8.3 L (8.5-10.1) mg/dL Phosphorus (2.6-4.7) mg/dL Magnesium (1.8-2.4) mg/dl Blood Type Gel Antibody Screen Crossmatch Med Orders - Current: Current Medications Acetaminophen (Tylenol) 650 mg PO Q4H PRN PRN Reason: Pain (Mild 1-3)/fever Amlodipine Besylate (Norvasc) 10 mg PO DAILY [facility] Last Admin: 03/27/19 08:25 Dose: 10 mg Calcium Acetate (Phoslo) 667 mg PO TIDMEALS [facility] Last Admin: 03/27/19 13:11 Dose: 667 mg Dextrose/Water (Dextrose 50% In Water) 50 ml IVPUSH ASDIRECTED PRN PRN Reason: Hypoglycemia Ferrous Sulfate (Ferrous Sulfate) 324 mg PO DAILY [facility] Last Admin: 03/27/19 08:26 Dose: 324 mg Furosemide (Lasix) 40 mg PO DAILY [facility] Last Admin: 03/27/19 10:57 Dose: 40 mg Insulin Glargine (Lantus) 15 unit SUBCUT DAILY [facility] Last Admin: 03/27/19 08:28 Dose: 15 unit Insulin Human Lispro (Humalog) 0 unit SUBCUT QIDACANDBED [facility]; Protocol Last Admin: 03/27/19 12:59 Dose: 4 units Isosorbide Mononitrate (Imdur) 60 mg PO DAILY [facility] Last Admin: 03/27/19 08:24 Dose: 60 mg Metoprolol Tartrate (Lopressor) 25 mg PO BID [facility] Multivitamins (Thera) 1 each PO DAILY [facility] Last Admin: 03/27/19 08:22 Dose: 1 each Ondansetron HCl (Zofran Odt) 4 mg PO Q6H PRN PRN Reason: nausea, able to take PO Ondansetron HCl (Zofran) 4 mg IV Q6H PRN PRN Reason: Nausea/Vomiting Psyllium Husk (Metamucil Sugar Free) 1 packet PO QPM [facility] Last Admin: 03/26/19 17:12 Dose: 1 packet Sodium Bicarbonate (Sodium Bicarbonate) 1,300 mg PO TID [facility] Sodium Polystyrene Sulfonate (Kayexalate) 15 gm PO DAILY [facility] Last Admin: 03/27/19 10:58 Dose: 15 gm Discontinued Medications Acetaminophen (Tylenol) 650 mg PO ONETIME ONE Stop: 03/23/19 08:36 Last Admin: 03/23/19 09:07 Dose: 650 mg [facility]cium [facility] ([facility]lo) [facility] Admin: 03/27/19 06:29 Dose: 667 mg Fentanyl (Sublimaze) 50 mcg IVPUSH ONETIME ONE Stop: 03/23/19 05:22 Last Admin: 03/23/19 05:24 Dose: 50 mcg Ferrous Sulfate (Ferrous Sulfate) 325 mg PO DAILY [facility] Last Admin: 03/26/19 08:43 Dose: 325 mg Furosemide (Lasix) 40 mg IVPUSH NOW ONE Stop: 03/23/19 08:41 Last Admin: 03/23/19 09:05 Dose: 40 mg Furosemide (Lasix) 40 mg PO ASDIRECTED PRN PRN Reason: Leg Swelling Hydromorphone HCl (Dilaudid) 0.5 mg IVPUSH ONETIME ONE Stop: 03/23/19 07:59 Last Admin: 03/23/19 08:09 Dose: 0.5 mg Ceftriaxone Sodium 2 gm/ (Sodium Chloride) 100 mls @ 200 mls/hr IV Q24H [facility] Last Admin: 03/23/19 07:55 Dose: 200 mls/hr Sodium Chloride (Normal Saline) 1,000 mls @ 125 mls/hr IV ASDIRECTED [facility] Last Admin: 03/23/19 09:03 Dose: 125 mls/hr Cefepime HCl 1 gm/ Premix 50 mls @ 100 mls/hr IV Q24H [facility] Last Admin: 03/24/19 16:03 Dose: 100 mls/hr Metronidazole 500 mg/ Premix 100 mls @ 100 mls/hr IV Q8H [facility] Last Admin: 03/25/19 08:09 Dose: 100 mls/hr Sodium Chloride (Normal Saline) 250 mls @ 250 drops/hr IV ASDIRECTED [facility] Last Admin: 03/26/19 16:05 Dose: 250 drops/hr Sodium Chloride (Normal Saline) 500 mls @ 250 mls/hr IV .BOLUS ONE Stop: 03/27/19 11:57 Last Admin: 03/27/19 11:01 Dose: 250 mls/hr Insulin Glargine (Lantus) 12 unit SUBCUT ONETIME ONE Stop: 03/23/19 08:22 Last Admin: 03/23/19 09:04 Dose: 12 units Ketorolac Tromethamine (Toradol) 30 mg IV Q6H PRN PRN Reason: Pain (moderate 4-6) Metoclopramide HCl (Reglan) 7.5 mg IVPUSH ONETIME ONE Stop: 03/23/19 07:59 Last Admin: 03/23/19 08:08 Dose: 7.5 mg Metoprolol Tartrate (Lopressor) 25 mg PO BID [facility] Metoprolol Tartrate (Lopressor) 25 mg PO BID [facility] Last Admin: 03/26/19 22:53 Dose: Not Given Metoprolol Tartrate (Lopressor) 25 mg PO BID [facility] Last Admin: 03/27/19 08:27 Dose: 25 mg Metronidazole (Flagyl) 500 mg PO Q8H [facility] Stop: 03/27/19 11:00 Last Admin: 03/27/19 08:26 Dose: 500 mg Nitroglycerin (Nitrostat) Confirm Administered Dose 0.4 mg .ROUTE .STK-MED ONE Stop: 03/26/19 11:58 Last Admin: 03/26/19 13:49 Dose: Not Given Ondansetron HCl (Zofran) 4 mg IVPUSH ONETIME ONE Stop: 03/23/19 05:42 Last Admin: 03/23/19 05:51 Dose: 4 mg Sodium Bicarbonate (Sodium Bicarbonate) 650 mg PO TID [facility] Sodium Bicarbonate (Sodium Bicarbonate) 650 mg PO TID [facility] Last Admin: 03/26/19 22:54 Dose: Not Given Sodium Bicarbonate (Sodium Bicarbonate) 650 mg PO TID [facility] Last Admin: 03/27/19 08:22 Dose: 650 mg - Exam Quality Assessment: DVT Prophylaxis General: Alert, Oriented, Cooperative, No Acute Distress HEENT: Pupils Equal, Pupils Reactive, EOMI, Mucous Membr. Moist/[place] Neck: Supple, Trachea Midline Lungs: Clear to Auscultation, Normal Respiratory Effort Cardiovascular: Regular Rate, Regular Rhythm GI/Abdominal Exam: Normal Bowel Sounds, Soft, Non-Tender, No Distention, No Abnormal Bruit, No Mass (Male) Exam: Deferred Back Exam: Normal Inspection, Full Range of Motion Extremities: Normal Inspection, Normal Range of Motion, Non-Tender, No Pedal Edema, Normal Capillary Refill Skin: Warm, Dry, Intact Neurological: No New Focal Deficit Psy/Mental Status: Alert, Normal Affect, Normal Mood - Problem List & Annotations (1) Abdominal aortic aneurysm (AAA) 3.0 cm to 5.5 cm in diameter in male SNOMED Code(s): 675090524 Code(s): I71.4 - ABDOMINAL AORTIC ANEURYSM, WITHOUT RUPTURE Status: Acute Current Visit: Yes (2) Abdominal pain SNOMED Code(s): 09672827 Code(s): R10.9 - UNSPECIFIED ABDOMINAL PAIN Status: Acute Current Visit: Yes Qualifiers: Abdominal location: right upper quadrant Qualified Code(s): R10.11 - Right upper quadrant pain (3) Abnormal gall bladder diagnostic imaging SNOMED Code(s): 181937907, 892258880 Code(s): R93.2 - ABNORMAL FINDINGS ON DX IMAGING OF LIVER AND BILIARY TRACT Status: Acute Current Visit: Yes (4) Anemia in chronic kidney disease SNOMED Code(s): 236625337 Code(s): N18.9 - CHRONIC KIDNEY DISEASE, UNSPECIFIED; D63.1 - ANEMIA IN CHRONIC KIDNEY DISEASE Status: Acute Current Visit: Yes Qualifiers: Chronic kidney disease stage: unspecified stage Qualified Code(s): N18.9 - Chronic kidney disease, unspecified; D63.1 - Anemia in chronic kidney disease; D63.1 - Anemia in chronic kidney disease (5) Dyslipidemia SNOMED Code(s): 305453353 Code(s): E78.5 - HYPERLIPIDEMIA, UNSPECIFIED Status: Acute Current Visit : Yes (6) Ex-heavy cigarette smoker (20-39 per day) SNOMED Code(s): 140671232 Code(s): Z87.891 - PERSONAL HISTORY OF NICOTINE DEPENDENCE Status: Acute Current Visit: Yes (7) [id number] kidney injury SNOMED Code(s): 144510080 Code(s): N17.9 - ACUTE KIDNEY FAILURE, UNSPECIFIED; N18.9 - CHRONIC KIDNEY DISEASE, UNSPECIFIED Status: Acute Priority: High Current Visit: Yes Qualifiers: Acute renal failure type: unspecified Chronic kidney disease stage: stage 5 , not on chronic dialysis Qualified Code(s): N17.9 - Acute kidney failure, unspecified; N18.5 - Chronic kidney disease, stage 5 (8) Multiple myeloma SNOMED Code(s): 107678234 Code(s): C90.00 - MULTIPLE MYELOMA NOT HAVING ACHIEVED REMISSION Status: Acute Priority: High Current Visit: Yes Qualifiers: Multiple myeloma remission status: unspecified Qualified Code(s): C90.00 - Multiple myeloma not having achieved remission - Problem List Review Problem List Initiated/Reviewed/Updated: Yes - My Orders Last 24 Hours: My Active Orders 03/27/19 07:46 Intake and Output Strict [RC] 04,16 03/28/19 05:11 BASIC METABOLIC PANEL,BMP [CHEM] AM CBC WITH AUTO DIFF [HEME] AM MAGNESIUM [CHEM] AM 03/29/19 05:11 BASIC METABOLIC PANEL,BMP [CHEM] AM CBC WITH AUTO DIFF [HEME] AM MAGNESIUM [CHEM] AM - Plan Plan:: Acute right flank pain, Resolved There is a concern for acalculous cholecystitis to 2 mild thickening of the gallbladder wall and location of pain Due to patient's comorbidities he is going to need empiric antibiotic coverage PLAN Starting cefepime and metronidazole - stop cefepime and continue Flagyl for 5 days total -> completed treatment -Switch from IV to PO Flagyl Monitor for fever Panculture febrile Pain control with Tylenol, Toradol or morphine as needed -CT scan of abdomen: -Inflammatory change around duodenum with wall thickening and outpouching. Could represent one ulcer. Consider endoscopy. -Cyst adjacent to the pancreas and duodenum. -Haziness to neck of gallbladder. -No renal dilation or eat renal stone. -Stable bilobed abdominal aortic aneurysm. -Abdominal US: -Slightly thickened gallbladder wall with no gallstones. Minimal fluid seen next to gallbladder. Suspect findings are likely due to duodenum and less due to a calculus cholecystitis. -Incidental renal cyst -Nothing acute. Multiple myeloma Diagnosed 3 years ago Not Candidate for bone marrow transplant due to age Currently undergoing treatment with Aranesp (darbopoietin) every 2 weeks Is scheduled to get a bone marrow biopsy in [address] Villagran Acute on chronic Macrocytic anemia History of multiple myeloma and chronic anemia 3 weeks ago patient's hemoglobin was 6.7, received a platelet transfusion On 03/19 patient hemoglobin was 8.1, 7.6 on admission ->7.9-->7.2-->7.2-->7.0--> 6.7 CT qabdomen with thickening of duodenum--> could be ulcer and could be cause of dropping of Hb PLAN - FIT stool test, since patient is on iron supplementation -> negative - Discussed case with group fitness manager Dr. Prieto - recommended transfusion if Hgb below 7 - Likely 2/2 multiple myeloma as above - Continue to monitor - Transfuse one unit on 03/26/19 Hyperphosphatemia -Phosphate 5.3 PLAN -Phosphate binding agents started -Continue to monitor Hyperkalemia, resolved PLAN - Continue to monitor Congestive heart failure - stable - BNP 4027 in EE - No reparatory distress, edema PLAN - Continue to monitor Abdominal aortic aneurysm (AAA) 3.0 cm to 5.5 cm in diameter in male -Stable PLAN -PCP to follow up Acute on chronic renal failure -Reports history of CKD stage IV -BUN 71-->72-->77-->80-->81 -Creatinine 3.8-->4.6-->4.9-->5.1-->4.1 -GFR 15-->12-->11 PLAN -Urine random creatinine and sodium WNL -Has seen nephrology - obtain old records -Monitor I&Os -Dr. Rodriguez, nephrology contacted - medication changes and would like to see patient next week for appointment. -IV fluids as ordered Prophylaxis: DVT - SCDs. Discharge plan: likely discharge tomorrow, upgrade from observation to inpatient status.
[2019-03-27] MEDS ORDERED: Sodium Chloride 0.9% 1,000 ML IV SCH (15:00)
[2019-03-27] MEDS: Psyllium Husk Powder Sugar Free 3.4 GM Packet PO SCH (17:34)
[2019-03-27] MEDS: Metoprolol Tartrate 25 MG Tab PO SCH (20:45)
[2019-03-28] MEDS: Insulin Lispro 100 Units/ML 3 ML Vial SUBCUT SCH ×2 (06:56→15:04)
[2019-03-28] MEDS: Calcium Acetate 667 MG Cap PO SCH ×2 (06:56→12:00)
[2019-03-28] MEDS ORDERED: Docusate Sodium 100 MG Cap PO ONE (09:00)
[2019-03-28] MEDS: Multivitamins,Therapeutic Tab PO SCH (09:42)
[2019-03-28] MEDS: amLODIPine 10 MG Tab PO SCH (09:42)
[2019-03-28] MEDS: Sodium Bicarbonate 650 MG Tab PO SCH (09:42)
[2019-03-28] MEDS: Furosemide 40 MG Tab PO SCH (09:42)
[2019-03-28] MEDS: Ferrous Sulfate 324 MG Tab.EC PO SCH (09:43)
[2019-03-28] MEDS: Metoprolol Tartrate 25 MG Tab PO SCH (09:43)
[2019-03-28] MEDS: Isosorbide Mononitrate 60 MG Tab.ER PO SCH (09:43)
[2019-03-28] MEDS: Insulin Glarg,Human.Rec.Analog 100 UNIT/ML ML SUBCUT SCH (09:44)
[2019-03-28] MEDS: Sodium Polystyrene Sulfonate 15 GM/60 ML Susp 60 ML Bot PO SCH (09:44)
--- NOTE | 2019-03-28 11:39 | PCM.DCSUM1 ---
Discharge Summary - Hospital Course HPI Initial Comments: This is a 79-year-old male with extensive past medical history including diabetes mellitus, stage IV chronic kidney disease, recurrent nephrolithiasis and active multiple myeloma who comes to the ED complaining of severe right sided abdominal pain. As per patient he was awoken in the middle of the night by pain described as colicky but less sharp than when he has kidney stones, graded at a 7/10, no radiation, no alleviating or worsening factors. He did not attempt any medications or interventions at home. He does associate pain with nausea and vomiting; denies any fevers, chills, painful urination, diarrhea or constipation. Diagnosis: Stroke: No - Discharge Data Discharge Date: 03/28/19 (Admit date: 03/23/19) Discharge Disposition: Home, Self-Care 01 Condition: Good - Referral to Home Health Primary Care Physician: PCP Not In Area - Discharge Diagnosis/Problem(s) (1) Abdominal aortic aneurysm (AAA) 3.0 cm to 5.5 cm in diameter in male SNOMED Code(s): 862267781 ICD Code: I71.4 - ABDOMINAL AORTIC ANEURYSM, WITHOUT RUPTURE Status: Acute Current Visit: Yes (2) Abdominal pain SNOMED Code(s): 81056376 ICD Code: R10.9 - UNSPECIFIED ABDOMINAL PAIN Status: Acute Current Visit : Yes Qualifiers: Abdominal location: right upper quadrant Qualified Code(s): R10.11 - Right upper quadrant pain (3) Abnormal gall bladder diagnostic imaging SNOMED Code(s): 322532908, 425434265 ICD Code: R93.2 - ABNORMAL FINDINGS ON DX IMAGING OF LIVER AND BILIARY TRACT Status: Acute Current Visit: Yes (4) Anemia in chronic kidney disease SNOMED Code(s): 247436716 ICD Code: N18.9 - CHRONIC KIDNEY DISEASE, UNSPECIFIED; D63.1 - ANEMIA IN CHRONIC KIDNEY DISEASE Status: Acute Current Visit: Yes Qualifiers: Chronic kidney disease stage: unspecified stage Qualified Code(s): N18.9 - Chronic kidney disease, unspecified; D63.1 - Anemia in chronic kidney disease; D63.1 - Anemia in chronic kidney disease (5) Dyslipidemia SNOMED Code(s): 464869504 ICD Code: E78.5 - HYPERLIPIDEMIA, UNSPECIFIED Status: Acute Current Visit : Yes (6) Ex-heavy cigarette smoker (20-39 per day) SNOMED Code(s): 203910095 ICD Code: Z87.891 - PERSONAL HISTORY OF NICOTINE DEPENDENCE Status: Acute Current Visit: Yes (7) Czcod-cb-yrkujoa kidney injury SNOMED Code(s): 617762727 ICD Code: N17.9 - ACUTE KIDNEY FAILURE, UNSPECIFIED; N18.9 - CHRONIC KIDNEY DISEASE, UNSPECIFIED Status: Acute Priority: High Current Visit: Yes Qualifiers: Acute renal failure type: unspecified Chronic kidney disease stage: stage 5 , not on chronic dialysis Qualified Code(s): N17.9 - Acute kidney failure, unspecified; N18.5 - Chronic kidney disease, stage 5 (8) Multiple myeloma SNOMED Code(s): 145952571 ICD Code: C90.00 - MULTIPLE MYELOMA NOT HAVING ACHIEVED REMISSION Status: Acute Priority: High Current Visit: Yes Qualifiers: Multiple myeloma remission status: unspecified Qualified Code(s): C90.00 - Multiple myeloma not having achieved remission - Patient Summary/Data Consults: Consultations 03/23/19 15:22 OT Evaluation and Treatment [CONS] Routine PT Evaluation and Treatment [CONS] Routine Labs Pending at D/C: None Recommended Follow-up Testing/Procedures: Follow-up with Dr. Rodriguez as scheduled Follow-up with Dr. Euceda as scheduled Follow-up with PCP within 5-7 days of discharge. Hospital Course: Po was admitted to the floor observation status after coming to the ED with right upper quadrant abdominal pain. CT scan performed in the ED showed inflammatory change which was believed to be centered within the duodenum. There was wall thickening in the duodenum and an outpouching which was believed to represent duodenal diverticulum. There was a question as to whether or not this was a duodenal ulcer. A small cystic area was noted adjacent to the PEG recent duodenum which could represent a small pseudocyst or a small abscess. Gallbladder neck was hazy. There is no renal dilation or ureteral stones seen. There was a stable bilobed abdominal aortic aneurysm and other incidental findings noted. Abdominal ultrasound was then obtained which showed a slightly thickened gallbladder wall with no shadowing gallstones. There is minimal fluid noted Gallbladder. It was believed these findings represented inflammatory changes in the duodenum and were less likely due to acalculous cholecystitis. Incidental renal cyst was noted with no additional abnormalities. He was started on Rocephin in the ED and this was changed to 500 mg Flagyl every 8 and Maxipime every 24. He responded well to treatment and the Maxipime was eventually discontinued. He received 5 days of Flagyl. IV Flagyl was eventually converted to by mouth and ultimately he completed treatment while here. There was no fever is noted while hospitalized and no leukocytosis. Unfortunately the patient does have an underlying smoldering multiple myeloma for which she has been seeing Dr. Euceda, oncologist at [facility] and also a oncologist in [place]. Patient reports he frequently has blood transfusions due to low hemoglobin. His hemoglobin was 7.6 on admission and this did increase to 7.9 during his first day of stay. From there on a trended downward with a low of 6.7. Dr. Euceda was contacted and recommended one unit of blood be infused. Unfortunately his creatinine did continue to rise while here. On admission it was noted to be 3.8 and it continued to climb to 5.1. Dr. Rodriguez, scene shifter was contacted by Dr. Short, and medication changes were made. Po was on when necessary Lasix and Dr. Rodriguez suggested making 40 mg by mouth daily be scheduled instead he also suggested the bicarbonate be changed to 1300 mg by mouth 3 times a day. He recommended 15 g by mouth Kayexalate be given daily. Of note the patient's phosphorus was also elevated while here, with a high of 5.9 being noted. He was then placed on PhosLo at 667 mg by mouth 3 times a day with meals. Dr. Rodriguez requested the patient be seen by him on Sunday at his outpatient clinic. Otherwise Po continued to feel good. He was up ambulating without issue. Vital signs are stable. He does have a appointment scheduled with Dr. Euceda next week as well. He was instructed to follow-up with his primary care provider within 5-7 days of discharge. He was discharged today. Home medications were continued with the exception of the changes as mentioned above. - Patient Instructions Diet: Heart Healthy Diet, Diabetic Diet, Renal Diet Diet, Other: Potassium restriction Activity: As Tolerated Notify Provider of: Fever, Increased Pain, Nausea and/or Vomiting Other/Special Instructions: Follow-up with primary care provider within 5-7 days of discharge. Follow-up with Dr. Rodriguez next Sunday as scheduled. Follow- up with Was as scheduled. Low potassium diet. Resume home medications a directed. Your lasix has changed from as needed to scheduled now, so be aware of this. You were prescribed some new medications at the recommendation of Dr. Rodriguez. Should symptoms return or worsen contact your primary care provider, - Discharge Plan *PRESCRIPTION DRUG MONITORING PROGRAM REVIEWED*: Not Applicable *COPY OF PRESCRIPTION DRUG MONITORING REPORT IN PATIENT ARYAN: Not Applicable Prescriptions/Med Rec: Calcium Acetate [PhosLo] 667 mg PO TIDMEALS #30 cap Furosemide [Lasix] 40 mg PO DAILY #20 tablet Sodium Bicarbonate 1,300 mg PO TID #60 tablet Sodium Polystyrene Sulfonate [Kayexalate] 15 gm PO DAILY #10 bottle Home Medications: Home Meds Aspirin [Halfprin] 81 mg PO QAM 03/07/17 [History] Hydrocortisone/Acetic Acid [Hydrocortison-Acetic Acid Soln] 3 - 5 drop OT DAILY PRN 03/07/17 [History] Insulin Detemir [Levemir Flextouch] 10 unit SQ BEDTIME 03/07/17 [History] Insulin Detemir [Levemir Flextouch] 12 unit SQ QAM 03/07/17 [History] Isosorbide Mononitrate [Imdur] 60 mg PO DAILY 03/07/17 [History] Multivitamin with Minerals [Multivitamins with Minerals] 1 tab PO DAILY [History] Nitroglycerin [Nitrostat] 0.4 mg SL Q5M PRN 03/07/17 [History] Psyllium Husk (With Sugar) [Metamucil Powder] 2 tbsp PO QPM 03/07/17 [History] Simvastatin [Zocor] 20 mg PO BEDTIME 03/07/17 [History] glipiZIDE [Glipizide Xl] 10 mg PO BID 03/07/17 [History] Darbepoetin Sukhwinder in Polysorbat [Aranesp] 500 mcg SUBCUT ASDIRECTED 03/05/19 [ History] Ferrous Sulfate 65 mg PO DAILY 03/05/19 [History] Metoprolol Tartrate 25 mg PO BID 03/05/19 [History] amLODIPine Besylate [Norvasc] 10 mg PO DAILY 03/05/19 [History] Omeprazole 20 mg PO DAILY 03/23/19 [History] Ubidecarenone [Coq-10] 200 mg PO DAILY 03/23/19 [History] Vit C/E/Zn/Coppr/Lutein/Zeaxan [Preservision Areds 2 Softgel] 1 cap PO BID 03/23 [History] Calcium Acetate [PhosLo] 667 mg PO TIDMEALS #30 cap 03/28/19 [Rx] Furosemide [Lasix] 40 mg PO DAILY #20 tablet 03/28/19 [Rx] Sodium Bicarbonate 1,300 mg PO TID #60 tablet 03/28/19 [Rx] Sodium Polystyrene Sulfonate [Kayexalate] 15 gm PO DAILY #10 bottle 03/28/19 [Rx ] Oxygen Therapy Mode: Room Air Patient Handouts: Anemia, Hyperkalemia, Sepsis, Adult, Potassium Content of Foods, Heart Failure, Chronic Kidney Disease, Adult Forms: ED Department Discharge Referrals: Haley Mcdonough MD [Ordering Only Provider] - 04/03/19 10:00 am (Please follow up with your primary care provider on April 03 at 1000. ) Twan Rodriguez MD [Ordering Only Provider] - 03/31/19 12:00 pm ( Appointment is at 12:00 pm central time at the nephrology clinic in [place].) Edgar Euceda MD [Ordering Only Provider] - 04/01/19 12:45 pm (This appt. is in [place]) - Discharge Summary/Plan Comment DC Time >30 min.: Yes (40 mins ) - General Info Date of Service: 03/28/19 Admission Dx/Problem (Free Text: Admission Diagnosis/Problem Admission Diagnosis/Problem Acute febrile illness Functional Status: Reports: Pain Controlled, Tolerating Diet, Ambulating, Urinating. Denies: New Symptoms - Review of Systems General: Reports: Weakness (chronic and currently at baseline ). Denies: Fever , Malaise, Chills HEENT: Reports: No Symptoms. Denies: Headaches, Sore Throat Pulmonary: Reports: No Symptoms. Denies: Shortness of Breath, Cough, Sputum, Wheezing Cardiovascular: Reports: No Symptoms. Denies: Chest Pain, Palpitations, Dyspnea on Exertion, Edema Gastrointestinal: Reports: No Symptoms. Denies: Abdominal Pain, Constipation, Diarrhea, Nausea, Vomiting Genitourinary: Reports: No Symptoms. Denies: Pain Musculoskeletal: Reports: No Symptoms Skin: Reports: No Symptoms. Denies: Cyanosis Neurological: Reports: No Symptoms. Denies: Confusion, Pre-Existing Deficit, Difficulty Walking, Weakness, Gait Disturbance Psychiatric: Reports: No Symptoms - Patient Data Vitals - Most Recent: Last Vital Signs Temp 98.1 F 03/28/19 09:04 Pulse 79 03/28/19 09:43 Resp 16 03/28/19 09:04 BP 143/81 H 03/28/19 09:43 Pulse Ox 96 03/28/19 09:04 Weight - Most Recent: 198 lb 4.8 oz I&O - Last 24 hours: Intake & Output 03/27/19 03/28/19 03/28/19 22:59 06:59 14:59 Intake Total 1853 1225 120 Output Total 650 1700 Balance 1203 -475 120 Lab Results - Last 24 hrs: Laboratory Results - last 24 hr 03/27/19 03/27/19 03/27/19 Range/Units 11:45 13:55 16:34 WBC (4.23-9.07) K/mm3 RBC (4.63-6.08) M/mm3 Hgb (13.7-17.5) gm/dl Hct (40.1-51.0) % MCV (79.0-92.2) fl MCH (25.7-32.2) pg MCHC (32.2-35.5) g/dl RDW Std Deviation (35.1-43.9) fL Plt Count (163-337) K/mm3 MPV (9.4-12.3) fl Neut % (Auto) (34.0-67.9) % Lymph % (Auto) (21.8-53.1) % [place] % (Auto) (5.3-12.2) % Eos % (Auto) (0.8-7.0) Baso % (Auto) (0.1-1.2) % Neut # (Auto) (1.78-5.38) K/mm3 Lymph # (Auto) (1.32-3.57) K/mm3 [place] # (Auto) (0.30-0.82) K/mm3 Eos # (Auto) (0.04-0.54) K/mm3 Baso # (Auto) (0.01-0.08) K/mm3 Sodium 137 (136-145) mEq/L Potassium 5.2 H (3.5-5.1) mEq/L Chloride 105 (98-107) mEq/L Carbon Dioxide 17 L (21-32) mEq/L Anion Gap 20.2 H (5-15) BUN 81 H (7-18) mg/dL Creatinine 4.9 H (0.7-1.3) mg/dL Est Cr Clr Drug Dosing 12.21 mL/min Estimated GFR (MDRD) 11 (>60) mL/min BUN/Creatinine Ratio 16.5 (14-18) Glucose 168 H (83-115) mg/dL POC Glucose 233 H 137 H (83-110) mg/dL Calcium 8.3 L (8.5-10.1) mg/dL Magnesium (1.8-2.4) mg/dl 03/27/19 03/28/19 03/28/19 Range/Units 20:32 05:25 05:25 WBC 4.98 (4.23-9.07) K/mm3 RBC 2.43 L (4.63-6.08) M/mm3 Hgb 8.0 L (13.7-17.5) gm/dl Hct 24.9 L (40.1-51.0) % MCV 102.5 H (79.0-92.2) fl MCH 32.9 H (25.7-32.2) pg MCHC 32.1 L (32.2-35.5) g/dl RDW Std Deviation 68.9 H (35.1-43.9) fL Plt Count 317 (163-337) K/mm3 MPV 8.9 L (9.4-12.3) fl Neut % (Auto) 44.6 (34.0-67.9) % Lymph % (Auto) 38.6 (21.8-53.1) % [place] % (Auto) 9.4 (5.3-12.2) % Eos % (Auto) 6.6 (0.8-7.0) Baso % (Auto) 0.6 (0.1-1.2) % Neut # (Auto) 2.22 (1.78-5.38) K/mm3 Lymph # (Auto) 1.92 (1.32-3.57) K/mm3 [place] # (Auto) 0.47 (0.30-0.82) K/mm3 Eos # (Auto) 0.33 (0.04-0.54) K/mm3 Baso # (Auto) 0.03 (0.01-0.08) K/mm3 Sodium 139 (136-145) mEq/L Potassium 5.1 (3.5-5.1) mEq/L Chloride 107 (98-107) mEq/L Carbon Dioxide 18 L (21-32) mEq/L Anion Gap 19.1 H (5-15) BUN 78 H (7-18) mg/dL Creatinine 4.9 H (0.7-1.3) mg/dL Est Cr Clr Drug Dosing 12.21 mL/min Estimated GFR (MDRD) 11 (>60) mL/min BUN/Creatinine Ratio 15.9 (14-18) Glucose 100 (83-115) mg/dL POC Glucose 181 H (83-110) mg/dL Calcium 8.2 L (8.5-10.1) mg/dL Magnesium 1.8 (1.8-2.4) mg/dl 03/28/19 Range/Units 06:55 WBC (4.23-9.07) K/mm3 RBC (4.63-6.08) M/mm3 Hgb (13.7-17.5) gm/dl Hct (40.1-51.0) % MCV (79.0-92.2) fl MCH (25.7-32.2) pg MCHC (32.2-35.5) g/dl RDW Std Deviation (35.1-43.9) fL Plt Count (163-337) K/mm3 MPV (9.4-12.3) fl Neut % (Auto) (34.0-67.9) % Lymph % (Auto) (21.8-53.1) % [place] % (Auto) (5.3-12.2) % Eos % (Auto) (0.8-7.0) Baso % (Auto) (0.1-1.2) % Neut # (Auto) (1.78-5.38) K/mm3 Lymph # (Auto) (1.32-3.57) K/mm3 [place] # (Auto) (0.30-0.82) K/mm3 Eos # (Auto) (0.04-0.54) K/mm3 Baso # (Auto) (0.01-0.08) K/mm3 Sodium (136-145) mEq/L Potassium (3.5-5.1) mEq/L Chloride (98-107) mEq/L Carbon Dioxide (21-32) mEq/L Anion Gap (5-15) BUN (7-18) mg/dL Creatinine (0.7-1.3) mg/dL Est Cr Clr Drug Dosing mL/min Estimated GFR (MDRD) (>60) mL/min BUN/Creatinine Ratio (14-18) Glucose (83-115) mg/dL POC Glucose 94 (83-110) mg/dL Calcium (8.5-10.1) mg/dL Magnesium (1.8-2.4) mg/dl Med Orders - Current: Current Medications Acetaminophen (Tylenol) 650 mg PO Q4H PRN PRN Reason: Pain (Mild 1-3)/fever Amlodipine Besylate (Norvasc) 10 mg PO DAILY [facility] Last Admin: 03/28/19 09:42 Dose: 10 mg Calcium Acetate (Phoslo) 667 mg PO TIDMEALS [facility] Last Admin: 03/28/19 06:56 Dose: 667 mg Dextrose/Water (Dextrose 50% In Water) 50 ml IVPUSH ASDIRECTED PRN PRN Reason: Hypoglycemia Ferrous Sulfate (Ferrous Sulfate) 324 mg PO DAILY [facility] Last Admin: 03/28/19 09:43 Dose: 324 mg Furosemide (Lasix) 40 mg PO DAILY [facility] Last Admin: 03/28/19 09:42 Dose: 40 mg Insulin Glargine (Lantus) 15 unit SUBCUT DAILY [facility] Last Admin: 03/28/19 09:44 Dose: 15 unit Insulin Human Lispro (Humalog) 0 unit SUBCUT QIDACANDBED [facility]; Protocol Last Admin: 03/28/19 06:56 Dose: Not Given Isosorbide Mononitrate (Imdur) 60 mg PO DAILY [facility] Last Admin: 03/28/19 09:43 Dose: 60 mg Metoprolol Tartrate (Lopressor) 25 mg PO BID [facility] Last Admin: 03/28/19 09:43 Dose: 25 mg Multivitamins (Thera) 1 each PO DAILY [facility] Last Admin: 10/25/19 09:42 Dose: 1 each Ondansetron HCl (Zofran Odt) 4 mg PO Q6H PRN PRN Reason: nausea, able to take PO Ondansetron HCl (Zofran) 4 mg IV Q6H PRN PRN Reason: Nausea/Vomiting Psyllium Husk (Metamucil Sugar Free) 1 packet PO QPM [facility] Last Admin: 03/27/19 17:34 Dose: 1 packet Sodium Bicarbonate (Sodium Bicarbonate) 1,300 mg PO TID [facility] Last Admin: 03/28/19 09:42 Dose: 1,300 mg Sodium Polystyrene Sulfonate (Kayexalate) 15 gm PO DAILY [facility] Last Admin: 03/28/19 09:44 Dose: 15 gm Discontinued Medications Acetaminophen (Tylenol) 650 mg PO ONETIME ONE Stop: 03/23/19 08:36 Last Admin: 03/23/19 09:07 Dose: 650 mg Calcium Acetate (Phoslo) 667 mg PO BIDMEALS [facility] Last Admin: 03/27/19 06:29 Dose: 667 mg Docusate Sodium (Colace) 100 mg PO ONETIME ONE Stop: 03/28/19 09:01 Last Admin: 03/28/19 09:56 Dose: Not Given Fentanyl (Sublimaze) 50 mcg IVPUSH ONETIME ONE Stop: 03/23/19 05:22 Last Admin: 03/23/19 05:24 Dose: 50 mcg Ferrous Sulfate (Ferrous Sulfate) 325 mg PO DAILY [facility] Last Admin: 03/26/19 08:43 Dose: 325 mg Furosemide (Lasix) 40 mg IVPUSH NOW ONE Stop: 03/23/19 08:41 Last Admin: 03/23/19 09:05 Dose: 40 mg Furosemide (Lasix) 40 mg PO ASDIRECTED PRN PRN Reason: Leg Swelling Hydromorphone HCl (Dilaudid) 0.5 mg IVPUSH ONETIME ONE Stop: 03/23/19 07:59 Last Admin: 03/23/19 08:09 Dose: 0.5 mg Ceftriaxone Sodium 2 gm/ (Sodium Chloride) 100 mls @ 200 mls/hr IV Q24H [facility] Last Admin: 03/23/19 07:55 Dose: 200 mls/hr Sodium Chloride (Normal Saline) 1,000 mls @ 125 mls/hr IV ASDIRECTED [facility] Last Admin: 03/23/19 09:03 Dose: 125 mls/hr Cefepime HCl 1 gm/ Premix 50 mls @ 100 mls/hr IV Q24H [facility] Last Admin: 03/24/19 16:03 Dose: 100 mls/hr Metronidazole 500 mg/ Premix 100 mls @ 100 mls/hr IV Q8H [facility] Last Admin: 03/25/19 08:09 Dose: 100 mls/hr Sodium Chloride (Normal Saline) 250 mls @ 250 drops/hr IV ASDIRECTED [facility] Last Admin: 03/26/19 16:05 Dose: 250 drops/hr Sodium Chloride (Normal Saline) 500 mls @ 250 mls/hr IV .BOLUS ONE Stop: 03/27/19 11:57 Last Admin: 03/27/19 11:01 Dose: 250 mls/hr Sodium Chloride (Normal Saline) 1,000 mls @ [facility] Stop: 03/28/19 04:19 Last Admin: 03/27/19 15:43 Dose: 75 mls/hr Insulin Glargine (Lantus) 12 unit SUBCUT ONETIME ONE Stop: 03/23/19 08:22 Last Admin: 03/23/19 09:04 Dose: 12 units Ketorolac Tromethamine (Toradol) 30 mg IV Q6H PRN PRN Reason: Pain (moderate 4-6) Metoclopramide HCl (Reglan) 7.5 mg IVPUSH ONETIME ONE Stop: 03/23/19 07:59 Last Admin: 03/23/19 08:08 Dose: 7.5 mg Metoprolol Tartrate (Lopressor) 25 mg PO BID [facility] Metoprolol Tartrate (Lopressor) 25 mg PO BID [facility] Last Admin: 03/26/19 22:53 Dose: Not Given Metoprolol Tartrate (Lopressor) 25 mg PO BID [facility] Last Admin: 03/27/19 08:27 Dose: 25 mg Metronidazole (Flagyl) 500 mg PO Q8H [facility] Stop: 03/27/19 11:00 Last Admin: 03/27/19 08:26 Dose: 500 mg Nitroglycerin (Nitrostat) Confirm Administered Dose 0.4 mg .ROUTE .STK-MED ONE Stop: 03/26/19 11:58 Last Admin: 03/26/19 13:49 Dose: Not Given Ondansetron HCl (Zofran) 4 mg IVPUSH ONETIME ONE Stop: 03/23/19 05:42 Last Admin: 03/23/19 05:51 Dose: 4 mg Sodium Bicarbonate (Sodium Bicarbonate) 650 mg PO TID [facility] Sodium Bicarbonate (Sodium Bicarbonate) 650 mg PO TID [facility] Last Admin: 03/26/19 22:54 Dose: Not Given Sodium Bicarbonate (Sodium Bicarbonate) 650 mg PO TID [facility] Last Admin: 03/27/19 08:22 Dose: 650 mg - Exam Quality Assessment: Reports: DVT Prophylaxis General: Reports: Alert, Oriented, Cooperative, No Acute Distress HEENT: Reports: Pupils Equal, Pupils Reactive, EOMI, Mucous Membr. Moist/[place] Neck: Reports: Supple, Trachea Midline Lungs: Reports: Clear to Auscultation, Normal Respiratory Effort Cardiovascular: Reports: Regular Rate, Regular Rhythm GI/Abdominal Exam: Normal Bowel Sounds, Soft, Non-Tender, No Distention, No Abnormal Bruit (Male) Exam: Deferred Rectal (Males) Exam: Deferred Back Exam: Reports: Normal Inspection, Full Range of Motion Extremities: Normal Inspection, Normal Range of Motion, Non-Tender, No Pedal Edema, Normal Capillary Refill Skin: Reports: Warm, Dry, Intact Neurological: Reports: No New Focal Deficit Psy/Mental Status: Reports: Alert, Normal Affect, Normal Mood *Q Meaningful Use (DIS) - VTE *Q VTE Anticoagulation Contraindications: Medical/Procedure Contrai
[2019-03-28 17:51] VITALS: BP 131/64; PULSE 75
== END 2019-03-28 12:47 | disposition home or self-care (01) | DRG 445 ==
LOC: JD.ED 04:17 → JD.MS 09:57 → OBSVTOIN 03-26 11:34 → JD.MS 03-26 11:35
PROVIDERS: ADMIT Internal Medicine; ATTEND Internal Medicine
DX: R10.11 Right upper quadrant pain (principal); K81.9 Cholecystitis, unspecified; R93.2 Abnormal findings on diagnostic imaging of liver and biliary tract; N17.9 Acute kidney failure, unspecified; I25.10 Atherosclerotic heart disease of native coronary artery without angina pectoris; C90.00 Multiple myeloma not having achieved remission; N18.5 Chronic kidney disease, stage 5; I50.82 Biventricular heart failure; I25.810 Atherosclerosis of coronary artery bypass graft(s) without angina pectoris; I50.42 Chronic combined systolic (congestive) and diastolic (congestive) heart failure; E87.2 Acidosis; Z95.1 Presence of aortocoronary bypass graft; I13.0 Hypertensive heart and chronic kidney disease with heart failure and stage 1 through stage 4 chronic kidney disease, or unspecified chronic kidney disease; N18.4 Chronic kidney disease, stage 4 (severe); D53.9 Nutritional anemia, unspecified; E78.5 Hyperlipidemia, unspecified; N20.0 Calculus of kidney; E87.5 Hyperkalemia; Z87.442 Personal history of urinary calculi; I71.4 Abdominal aortic aneurysm, without rupture; K44.9 Diaphragmatic hernia without obstruction or gangrene; E11.22 Type 2 diabetes mellitus with diabetic chronic kidney disease; E78.00 Pure hypercholesterolemia, unspecified; D63.1 Anemia in chronic kidney disease; E83.39 Other disorders of phosphorus metabolism; Z88.0 Allergy status to penicillin; Z87.891 Personal history of nicotine dependence; Z79.82 Long term (current) use of aspirin; Z79.4 Long term (current) use of insulin; Z79.899 Other long term (current) drug therapy; Z95.5 Presence of coronary angioplasty implant and graft
CPT/HCPCS: 36415 ×4; 36600; 74176; 76705; 80048; 80053 ×2; 81001; 82009; 82274; 82607; 82746; 82803; 82962 ×14; 83036; 83605; 83690; 83735 ×3; 83880; 84100; 84134; 84145; 84550; 85007; 85014 ×2; 85018 ×2; 85025 ×3; 85027; 85610; 86140; 86850; 86900; 86901; 86922; 87086; 96365; 96372; 96375; 97161; 97165; 97530; 99285; A9270 ×21; J0692 ×2; J0696; J1170; J1815 ×4; J1940; J2405; J2765; J3010; J3490 ×6; J7030; J7040; 36430; 82570; 84300; 96361; J7050; P9016

== ENCOUNTER 2021-09-26 12:18 | Emergency (ER) | payer MEDICARE, OTHER ==
[2021-09-26] MEDS ORDERED: Furosemide 100 MG/10 ML SDV IVPUSH ONE (14:10)
[2021-09-26 16:08] VITALS: BP 147/58; PULSE 82
== END 2021-09-26 15:10 ==
LOC: JD.ED 12:18
DX: I13.2 Hypertensive heart and chronic kidney disease with heart failure and with stage 5 chronic kidney disease, or end stage renal disease (principal); E11.22 Type 2 diabetes mellitus with diabetic chronic kidney disease; N18.6 End stage renal disease; E78.00 Pure hypercholesterolemia, unspecified; I25.10 Atherosclerotic heart disease of native coronary artery without angina pectoris; Z95.5 Presence of coronary angioplasty implant and graft; Z79.82 Long term (current) use of aspirin; Z79.4 Long term (current) use of insulin; Z79.899 Other long term (current) drug therapy; Z95.1 Presence of aortocoronary bypass graft; Z20.822 Contact with and (suspected) exposure to COVID-19
CPT/HCPCS: 36415; 84484; 93005; 96374; 99285; J1940; U0002

== ENCOUNTER 2021-12-03 12:08 | Emergency (ER) | payer MEDICARE, OTHER ==
[2021-12-03] MEDS ORDERED: Sodium Chloride 0.9% 10 ML Syringe FLUSH PRN (13:45)
[2021-12-03] MEDS ORDERED: Furosemide 40 MG/4 ML VIAL IVPUSH ONE (16:54)
[2021-12-03] MEDS ORDERED: Sodium Chloride 0.9% 250 ML IV SCH (17:00)
[2021-12-03 23:22] VITALS: BP 163/73; PULSE 87
== END 2021-12-03 23:40 | disposition home or self-care (01) ==
LOC: JD.ED 12:08
DX: E11.22 Type 2 diabetes mellitus with diabetic chronic kidney disease (principal); I12.0 Hypertensive chronic kidney disease with stage 5 chronic kidney disease or end stage renal disease; N18.6 End stage renal disease; D63.1 Anemia in chronic kidney disease; Z99.2 Dependence on renal dialysis; Z87.891 Personal history of nicotine dependence; Z88.0 Allergy status to penicillin; E78.00 Pure hypercholesterolemia, unspecified; Z79.4 Long term (current) use of insulin; Z79.82 Long term (current) use of aspirin; Z79.899 Other long term (current) drug therapy
CPT/HCPCS: 36415; 36430; 71045; 80053; 83735; 83880; 84484; 85025; 85610; 85730; 86850; 86900; 86901; 86922; 93005; 96361; 96374; 99285; J1940; J3490; J7050; P9016

== ENCOUNTER 2021-12-06 02:09 | Emergency (ER) | payer MEDICARE, OTHER ==
[2021-12-06 02:17] VITALS: PULSE 95
[2021-12-06] MEDS ORDERED: fentaNYL 100 MCG/2 ML SDV IVPUSH ONE (06:15)
[2021-12-06] MEDS ORDERED: HYDROmorphone 0.5 MG/0.5 ML Syringe IVPUSH ONE (12:40)
[2021-12-06 13:57] VITALS: BP 160/85
== END 2021-12-06 13:51 ==
LOC: JD.ED 02:09
DX: S32.415A Nondisplaced fracture of anterior wall of left acetabulum, initial encounter for closed fracture (principal); S32.592A Other specified fracture of left pubis, initial encounter for closed fracture; I12.9 Hypertensive chronic kidney disease with stage 1 through stage 4 chronic kidney disease, or unspecified chronic kidney disease; E11.22 Type 2 diabetes mellitus with diabetic chronic kidney disease; N18.4 Chronic kidney disease, stage 4 (severe); D63.1 Anemia in chronic kidney disease; E78.00 Pure hypercholesterolemia, unspecified; Z88.0 Allergy status to penicillin; Z79.82 Long term (current) use of aspirin; Z79.4 Long term (current) use of insulin; Z79.899 Other long term (current) drug therapy; Z87.891 Personal history of nicotine dependence; Z99.2 Dependence on renal dialysis; Z20.822 Contact with and (suspected) exposure to COVID-19; W18.30XA Fall on same level, unspecified, initial encounter
CPT/HCPCS: 36415; 72192; 73502; 80053; 85025; 86850; 86870; 86900; 86901; 96374; 96375; 99285; J1170; J3010; U0002; 99284

== ENCOUNTER 2021-12-25 17:35 | Emergency (ER) | payer MEDICARE, OTHER ==
[2021-12-25] MEDS ORDERED: Sodium Chloride 0.9% 10 ML Syringe FLUSH PRN (17:43)
[2021-12-25] MEDS ORDERED: Dextrose 5%-Lactated Ringers 1,000 ML IV SCH (17:45)
[2021-12-25] MEDS ORDERED: 50% Dextrose in Water 50 ML Syringe ONE (17:53)
[2021-12-25] MEDS ORDERED: 50% Dextrose in Water 50 ML Syringe IVPUSH ONE (17:53)
[2021-12-25] MEDS ORDERED: 50% Dextrose in Water 50 ML Syringe IVPUSH STA (18:38)
[2021-12-26] MEDS ORDERED: Sodium Chloride 0.9% 500 ML IV ONE (03:42)
[2021-12-26 04:34] VITALS: BP 109/60; PULSE 126
[2021-12-26] MEDS ORDERED: Furosemide 40 MG/4 ML VIAL IVPUSH ONE (05:57)
== END 2021-12-26 08:00 | disposition home or self-care (01) ==
LOC: JD.ED 17:35
DX: I13.2 Hypertensive heart and chronic kidney disease with heart failure and with stage 5 chronic kidney disease, or end stage renal disease (principal); I50.42 Chronic combined systolic (congestive) and diastolic (congestive) heart failure; N18.6 End stage renal disease; E11.649 Type 2 diabetes mellitus with hypoglycemia without coma; R09.02 Hypoxemia; Z88.2 Allergy status to sulfonamides; Z88.0 Allergy status to penicillin; Z79.899 Other long term (current) drug therapy; Z79.82 Long term (current) use of aspirin; Z79.4 Long term (current) use of insulin
CPT/HCPCS: 36415; 36600; 71045; 80053; 82803; 82947; 83605; 83880; 84484; 85025; 86140; 87040; 93005; 96361; 96374; 96375; 96376; 99285; J1940; J3490; J7121; 93010

== ENCOUNTER 2021-12-26 11:38 | Emergency (ER) | payer MEDICARE, OTHER ==
[2021-12-26] MEDS ORDERED: Sodium Chloride 0.9% 10 ML Syringe FLUSH PRN (11:58)
[2021-12-26] MEDS ORDERED: Etomidate 2 MG/ML 20 ML SDV IVPUSH ONE (13:03)
[2021-12-26] MEDS ORDERED: Succinylcholine 200 MG/10 ML MDV IV ONE (13:04)
[2021-12-26] MEDS ORDERED: propofoL 100 ML ONE (13:14)
[2021-12-26] MEDS ORDERED: propofoL 100 ML IV SCH (13:15)
[2021-12-26 13:20] LABS: ESTIMATED GFR 18 mL/min (>60)
[2021-12-26] MEDS ORDERED: Midazolam 5 MG/ML 10 ML MDV IV ONE (13:23)
[2021-12-26] MEDS ORDERED: Furosemide 40 MG/4 ML VIAL IVPUSH ONE (13:35)
[2021-12-26] MEDS ORDERED: Vancomycin 2 GM in Sodium Chloride 0.9% 500 ML IV ONE (13:51)
[2021-12-26] MEDS ORDERED: cefTRIAXone 2 GM in Sodium Chloride 0.9% 100 ML IV ONE (13:53)
[2021-12-26 14:33] VITALS: BP 122/72; PULSE 90
[2021-12-26] MEDS ORDERED: Rocuronium 50 MG/5 ML Vial IVPUSH ONE (14:41)
[2021-12-26] MEDS ORDERED: Midazolam 1 MG/ML 5 ML SDV ONE (14:42)
== END 2021-12-26 15:00 ==
LOC: JD.ED 11:38
DX: J18.9 Pneumonia, unspecified organism (principal); J96.01 Acute respiratory failure with hypoxia; I13.2 Hypertensive heart and chronic kidney disease with heart failure and with stage 5 chronic kidney disease, or end stage renal disease; I50.9 Heart failure, unspecified; N18.6 End stage renal disease; E11.649 Type 2 diabetes mellitus with hypoglycemia without coma; I25.10 Atherosclerotic heart disease of native coronary artery without angina pectoris; Z88.0 Allergy status to penicillin; Z79.899 Other long term (current) drug therapy; Z79.82 Long term (current) use of aspirin; Z79.4 Long term (current) use of insulin
CPT/HCPCS: 31500; 36415; 36600; 43752; 71045; 80053; 82803; 82947; 83605; 85025; 87040; 94660; 96365; 96368; 96375; 99291; J0330; J0696; J1940; J2250; J2704; J3370; J3490; J7040